=== PATIENT | male | born 1940 | race Caucasian/White ===

== ENCOUNTER 2022-07-10 17:47 | Outpatient (REF) | payer SELFPAY ==
[2022-07-10 15:25] LABS: HCT 43.4 % (40.0-50.0); HGB 14.9 g/dL (13.5-17.5); MCH 33.1 pg (27.0-33.0); MCHC 34.3 % (32.0-36.0); MCV 96 fL (80-95); MPV 8.9 fL (8.0-11.0); Platelet Count 322 10^3/uL (130-400); RDW 12.3 % (11.8-14.1); RDW-SD 44.2 fL; WBC 7.55 10^3/uL (4.4-10.8)
[2022-07-10 15:40] LABS: Anion Gap 9.1 mmol/L (3-11); BUN 18 mg/dL (7-18); CO2 24.9 mmol/L (21.0-32.0); CREATININE 1.1 mg/dL (0.70-1.30); Calcium 8.8 mg/dL (8.5-10.1); Chloride 106 mmol/L (98-107); Estimated GFR 67.02 (mL/min/1.73m2); Glucose 261 mg/dL (74-106); Potassium 4.7 mmol/L (3.5-5.1); Sodium 140 mmol/L (136-145)
[2022-07-10 15:45] LABS: Hemoglobin A1C 7.3 % (<5.7)
--- OUTSIDE RECORDS SUMMARY | 2022-07-10 18:08 | XMS_ITS | CCD ---
Author Name Unknown Address [address] [place] [address] [phone] Organization Unknown Address [address] [place] [address] [phone] Care Team Providers Care Timing Machine Operator Name Role Phone ZEKE MARTÍNEZ Attending Physician [phone] Vital Signs Unknown or Not Available. Allergies Allergy Code Allergy Type Reaction Status GARLIC OIL 0477481 Drug allergy Hives Active Procedures Unknown or Not Available. History of Immunizations Unknown or Not Available. Problems Problem Code Start Date Resolved Date Status Failure to thrive 88133701 Active Functional quadriplegia 114869552744282 Active Type 2 diabetes 68858043 Active Weakness 31988509 Active Unsteady gait 82658390 Active JANAE - acute kidney injury 13480279 07/02/2022 Resolved Results URINALYSIS WITH REFLEX CULT IF POSITIVE* - Collect Date/Time: 05/20/2022 12:05 Test Name Code Test Result Test Units Test Ref Rang e COLLECTION MODE: 21503-6 NOT STATED N/A Color 5778-6 YELLOW N/A yellow Appearance 5767-9 CLEAR N/A clear Glucose urine 09989-3 >=1000 N/A negative mg /dl Bilirubin 5770-3 NEGATIVE N/A negative Ketones 2514-8 TRACE N/A negative mg/dl Spec gravity 5811-5 1.015 N/A 1.003 - 1.03 0 pH urine 2756-5 7.5 N/A 5.0 - 7.0 Protein 52778-3 NEGATIVE N/A negative mg/dl Urobilinogen 01696-7 0.2 N/A <or= 1 EU/dl Nitrite. 5802-4 NEGATIVE N/A negative Blood 5794-3 NEGATIVE N/A negative Leukocytes. NEGATIVE N/A negative MICROSCOPIC NOT INDICAT N/A Active Medications Medication Code Dose Units Frequency Route Modificatio n Start Date/Time Aspir 81 81MG Oral Tablet, Enteric Coated [id number] 81 MILLIGRAMS DAILY ORAL 09:29 Prescription Detail TAKE 81 MILLIGRAMS ORAL DAILY Dulcolax 100MG Oral Capsule, Liquid Filled [id number] 100 MILLIGRAMS TWICE A DAY ORAL 0 04/28/2021 09:29 Prescription Detail TAKE 100 MILLIGRAMS ORAL TWICE A DAY Omeprazole 20MG Oral Capsule, Delayed Release 155486 20 MILLIGRAMS DAILY ORAL 09:29 Prescription Detail TAKE 20 MILLIGRAMS ORAL DAILY Medications Administered During Visit Unknown or Not Available. Encounters Encounter Diagnosis Diagnosis Code Start Date Dysuria R300 05/20/2022 Social History Smoking Status Code Start Date End Date Former smoker [id number] 04/05/1955 Patient Decision Aids Unknown or Not Available. Discharge Instructions You were admitted to [facility] on 05/20/2022 23:13 with a principal diagnosis of Dysuria You had the following tests done:URINALYSIS WITH REFLEX CULT IF POSITIVE* You were discharged from [facility] on 05/20/2022 23:13 Should you have any questions prior to discharge, please contact a member of your healthcare team. If you have left the hospital and have any questions, please contact your primary care physician. Chief Complaint and Reason For Visit Unknown or Not Available. Function Status Unknown or Not Available. Plan of Care Unknown or Not Available. Referral/Transition of Care Unknown or Not Available.
--- OUTSIDE RECORDS SUMMARY | 2022-07-10 18:08 | XMS_ITS | CCD ---
Author Name Unknown Address [address] [place] [address] [phone] Organization Unknown Address [address] [place] [address] [phone] Care Team Providers Care Balloon Sander Name Role Phone HETAL LEROY Attending Physician [phone] MAGUE VEE Er Physician 6 [phone] ÁNGEL Arenas Registered Nurse [phone] RIANNA Copeland Registered Nurse [phone] Vital Signs Vital Sign Value Unit Date/Time Recent/Initial ? BMI (Body Mass Index) 24.8 kg/m^2 05/18/2022 04: 28 Initial VS Weight Measured 140 lbs 05/18/2022 04:28 Ini tial VS Height 63 in 05/18/2022 04:28 Initial VS BSA (Body Surface Area) 1.68 m^2 05/18/2022 0 4:28 Initial VS BP Systolic 156 mmHg 05/18/2022 04:28 Initial VS BP Diastolic 88 mmHg 05/18/2022 04:28 Initia l VS Respiratory Rate 18 bpm 05/18/2022 04:28 In itial VS Heart Rate 87 bpm 05/18/2022 04:28 Initial VS O2 % BldC Oximetry 95 % 05/18/2022 04:28 Initial VS Body Temperature 36.3 degrees 05/18/2022 04:28 In itial VS Body Temperature 36.9 degrees 05/18/2022 05:[address] Recent VS Respiratory Rate 18 bpm 05/18/2022 06:[address] Recent VS BP Systolic 150 mmHg 05/18/2022 07:00 Most Re cent VS BP Diastolic 76 mmHg 05/18/2022 07:00 Most R ecent VS Heart Rate 81 bpm 05/18/2022 07:00 Most Rec ent VS O2 % BldC Oximetry 91 % 05/18/2022 07:00 Most Recent VS Allergies Allergy Code Allergy Type Reaction Status GARLIC OIL 5575880 Drug allergy Hives Active Procedures Unknown or Not Available. History of Immunizations Unknown or Not Available. Problems Problem Code Start Date Resolved Date Status Failure to thrive 86521424 Active Functional quadriplegia 922480424656581 Active Type 2 diabetes 57525046 Active Weakness 22125274 Active Unsteady gait 14903879 Active JANAE - acute kidney injury 38306441 07/02/2022 Resolved Results C REACTIVE PROTEIN HIGH SENS ITIVITY* - Collect Date/Time: 05/18/2022 04:15 Test Name Code Test Result Test Units Test Ref Rang e CRP-HIGH SENS. 41995-7 147.97 mg/L L=0.00 H=3 .00 CRP-HIGH SENS 36517-7 14.80 mg/dL L=0.00 H=0. 30 COMPREHENSIVE METABOLIC PANE L (CMP) - Collect Date/Time: 05/18/2022 04:15 Test Name Code Test Result Test Units Test Ref Rang e GLUCOSE 2345-7 133 mg/dL L=70 H=116 BUN 3094-0 27 mg/dL L=6 H=25 CREATININE 2160-0 1.26 mg/dL L=0.67 H=1.17 SODIUM SERUM 2951-2 135 mmol/L L=136 H=145 POTASSIUM SERUM 2823-3 4.0 mmol/L L=3.4 H=5 .2 CHLORIDE SERUM 2075-0 101 mmol/L L=96 H=110 CARBON DIOXIDE (CO2) 2028-9 29 mmol/L L=22 H=34 ANION GAP 57450-4 4.6 mmol/L CALCIUM SERUM 09340-3 8.6 mg/dL L=8.2 H=10. 2 BILIRUBIN TOTAL 1975-2 0.7 mg/dL L=0.0 H=1 .3 ALK. PHOS. 6768-6 130 U/L L=46 H=116 SGOT (AST) 1920-8 31 U/L L=15 H=37 SGPT (ALT) 1742-6 35 U/L L=12 H=78 TOTAL PROTEIN 2885-2 7.7 gm/dL L=6.0 H=8.0 ALBUMIN 1751-7 3.0 gm/dL L=3.4 H=5.0 AGE 81 years eGFR (non-Afr.Amer.) 02103-2 55 mL/min eGFR (Afr-Mosotho) 17659-1 66 mL/min GLUCOSE FINGER/HEEL CAPILLAR Y - Collect Date/Time: 05/18/2022 04:29 Test Name Code Test Result Test Units Test Ref Rang e GLUCOSE CAP 134 mg/dL L=70 H=116 TROPONIN HIGH SENSITIVITY* - Collect Date/Time: 05/18/2022 04:15 Test Name Code Test Result Test Units Test Ref Rang e TROPONIN HS 8.7 pg/mL L=0.0 H=60.4 Specimen seq. ADM. N/A CBC W/ DIFFERENTIAL* - Colle ct Date/Time: 05/18/2022 04:15 Test Name Code Test Result Test Units Test Ref Rang e WBC 6690-2 8.07 th/cmm L=5.00 H=10.00 NEUT % 64.6 % L=40.0 H=80.0 LYMPH % 18.7 % L=10.0 H=50.0 MONO % 09056-6 13.8 % L=2.0 H=12.0 EOS % 1.9 % L=0.0 H=8.0 BASO % 0.6 % L=0.0 H=3.0 IG % 2514-8 0.4 % L=0.0 H=1.1 NRBC % 48161-3 0.0 % L=0.0 H=0.0 NEUT abs count 751-8 5.2 th/cmm L=1.6 H=8. 4 LYMPH abs count 731-0 1.5 th/cmm L=1.5 H=4 .0 MONO abs count 742-7 1.1 th/cmm L=0.2 H=1. 0 EOS abs count 711-2 0.2 th/cmm L=0.0 H=0.5 BASO abs count 704-7 0.1 th/cmm L=0.0 H=0. 2 IG abs count 13662-3 0.0 th/cmm L=0.0 H=0.1 NRBC abs count 06134-3 0.0 mil/cmm L=0.0 H=0. 0 RBC 789-8 4.25 mil/cmm L=4.30 H=6.20 HEMOGLOBIN 718-7 14.3 gm/dL L=13.0 H=17.0 HEMATOCRIT 4544-3 42 % L=45 H=52 MCV 787-2 98 fL L=82 H=92 MCH 785-6 33.6 pg L=27.0 H=31.0 MCHC 786-4 34.4 % L=32.0 H=36.0 RDW-SD 788-0 45.0 fL L=39.0 H=49.0 PLATELET COUNT 777-3 277 th/cmm L=150 H=45 0 SED RATE* - Collect Date/Shel[place] e: 05/18/2022 04:15 Test Name Code Test Result Test Units Test Ref Rang e SED. RATE 4537-7 72 mm/hr L=0 H=20 PERICO COVID FLU RSV GENEXPE RT - Collect Date/Time: 05/18/2022 04:25 Test Name Code Test Result Test Units Test Ref Rang e COVID 39003-6 NEGATIVE N/A Normal: Negati ve INFLUENZA A DNA 92408-2 NEGATIVE N/A Normal: N egative INFLUENZA B DNA 24582-3 NEGATIVE N/A Normal: N egative RSV DNA 19082-0 NEGATIVE N/A Normal: Negati ve URINALYSIS WITH MICRO AND RE FLEX CULTUR* - Collect Date/Time: 05/18/2022 06:53 Test Name Code Test Result Test Units Test Ref Rang e COLLECTION MODE: 72372-0 CLEAN CATCH N/A Color 5778-6 YELLOW N/A yellow Appearance 5767-9 CLEAR N/A clear Glucose urine 06569-1 NEGATIVE N/A negative mg /dl Bilirubin 5770-3 NEGATIVE N/A negative Ketones 2514-8 15 N/A negative mg/dl Spec gravity 5811-5 <=1.005 N/A 1.003 - 1.03 0 pH urine 2756-5 6.5 N/A 5.0 - 7.0 Protein 97279-5 NEGATIVE N/A negative mg/dl Urobilinogen 51066-1 0.2 N/A <or= 1 EU/dl Nitrite. 5802-4 NEGATIVE N/A negative Blood 5794-3 NEGATIVE N/A negative Leukocytes. NEGATIVE N/A negative WBCs. 17191-0 0-5 N/A 0-5 / hpf RBCs 05143-2 0-5 N/A 0-5 / hpf Epith cells 79696-5 0-5 N/A 0-5 / hpf Cell types squamous N/A Crystals none N/A none Bacteria none N/A none Mucus 8247-9 present N/A none Casts 64667-3 0-5 N/A none /lpf Cast types hyaline N/A Active Medications Unknown or Not Available. Medications Administered During Visit Medication Dose Units Frequency Route Date/Time of Last Dose SODIUM CHLORIDE 0.9% 500ML 500 ML X1 IV 05/18/2022 05:33 CETIRIZINE TABLET: 10MG 10 MG X1 PO 05/18/2022 05:45 SODIUM CHLORIDE 0.9% 500ML 500 ML X1 IV 05/18/2022 06:03 ERYTHROMYCIN OPHTHALMIC OINTMENT 1GM 1 ANDREW X1 OPTH EACH EYE 05/18/2022 07: 47 Encounters Encounter Diagnosis Diagnosis Code Start Date Dehydration E860 05/18/2022 Social History Smoking Status Code Start Date End Date Former smoker [id number] 04/05/1955 Patient Decision Aids Unknown or Not Available. Discharge Instructions You were admitted to [facility] on 05/18/2022 04:11 with a principal diagnosis of Dehydration You had the following tests done:URINALYSIS WITH MICRO AND REFLEX CULTUR*GLUCOSE FINGER/HEEL CAPILLARYCOPLEY COVID FLU RSV GENEXPERTC REACTIVE PROTEIN HIGH SENSITIVITY*CBC W/ DIFFERENTIAL*COMPREHENSIVE METABOLIC PANEL (CMP)SED RATE*TROPONIN HIGH SENSITIVITY* You were discharged from [facility] on 05/18/2022 10:20 Should you have any questions prior to discharge, please contact a member of your healthcare team. If you have left the hospital and have any questions, please contact your primary care physician. Chief Complaint and Reason For Visit Chief Complaint Date of Onset WEAKNESS Function Status Unknown or Not Available. Plan of Care Unknown or Not Available. Referral/Transition of Care Unknown or Not Available.
--- OUTSIDE RECORDS SUMMARY | 2022-07-10 18:08 | XMS_ITS | CCD ---
Author Name Unknown Address [address] [place] [address] [phone] Organization Unknown Address [address] [place] [address] [phone] Care Team Providers Care Gourmet Coffee Attendant Name Role Phone TYLER HUMMEL Attending Physician [phone] SOTERO ISAAC Er Physician 0 [phone] ANNEMARIE CHIN (Secondary) Physician 8 [phone] Inez, OSMIN Registered Nurse [phone] BDebra, NANI Leija Registered Nurse [phone] G., RIANNA Meyer Registered Nurse [phone] Vital Signs Vital Sign Value Unit Date/Time Recent/Initial ? BMI (Body Mass Index) 24.63 kg/m^2 07/02/2022 06: 44 Initial VS Weight Measured 148 lbs 07/02/2022 06:44 Ini tial VS Height 65 in 07/02/2022 06:44 Initial VS BSA (Body Surface Area) 1.75 m^2 07/02/2022 0 6:44 Initial VS BP Systolic 162 mmHg 07/02/2022 06:44 Initial VS BP Diastolic 62 mmHg 07/02/2022 06:44 Initia l VS Respiratory Rate 18 bpm 07/02/2022 06:44 In itial VS Heart Rate 73 bpm 07/02/2022 06:44 Initial VS O2 % BldC Oximetry 96 % 07/02/2022 06:44 Initial VS Body Temperature 36.3 degrees 07/02/2022 06:44 In itial VS BP Systolic 159 mmHg 07/07/2022 07:36 Most Re cent VS BP Diastolic 79 mmHg 07/07/2022 07:36 Most R ecent VS Respiratory Rate 20 bpm 07/07/2022 07:[address] Recent VS Heart Rate 62 bpm 07/07/2022 07:36 Most Rec ent VS O2 % BldC Oximetry 96 % 07/07/2022 07:36 Most Recent VS Body Temperature 36.2 degrees 07/07/2022 07:[address] Recent VS Allergies Allergy Code Allergy Type Reaction Status GARLIC OIL 5449800 Drug allergy Hives Active Procedures Unknown or Not Available. History of Immunizations Unknown or Not Available. Problems Problem Code Start Date Resolved Date Status Failure to thrive 92527769 Active Functional quadriplegia 829858562974422 Active Type 2 diabetes 02603826 Active Weakness 33428737 Active Unsteady gait 85487797 Active Results COMPREHENSIVE METABOLIC PANE L (CMP) - Collect Date/Time: 07/02/2022 06:47 Test Name Code Test Result Test Units Test Ref Rang e GLUCOSE 2345-7 179 mg/dL L=70 H=116 BUN 3094-0 20 mg/dL L=6 H=25 CREATININE 2160-0 1.03 mg/dL L=0.67 H=1.17 SODIUM SERUM 2951-2 138 mmol/L L=136 H=145 POTASSIUM SERUM 2823-3 4.2 mmol/L L=3.4 H=5 .2 CHLORIDE SERUM 2075-0 101 mmol/L L=96 H=110 CARBON DIOXIDE (CO2) 2028-9 29 mmol/L L=22 H=34 ANION GAP 01051-2 8.1 mmol/L CALCIUM SERUM 99932-1 9.1 mg/dL L=8.2 H=10. 2 BILIRUBIN TOTAL 1975-2 0.8 mg/dL L=0.0 H=1 .3 ALK. PHOS. 6768-6 215 U/L L=46 H=116 SGOT (AST) 1920-8 28 U/L L=15 H=37 SGPT (ALT) 1742-6 83 U/L L=12 H=78 TOTAL PROTEIN 2885-2 8.1 gm/dL L=6.0 H=8.0 ALBUMIN 1751-7 3.1 gm/dL L=3.4 H=5.0 AGE 81 years eGFR (non-Afr.Amer.) 76475-7 69 mL/min eGFR (Afr-Greenlandic) 59385-0 84 mL/min GLUCOSE FINGER/HEEL CAPILLAR Y - Collect Date/Time: 07/06/2022 07:36 Test Name Code Test Result Test Units Test Ref Rang e GLUCOSE CAP 156 mg/dL L=70 H=116 GLUCOSE FINGER/HEEL CAPILLAR Y - Collect Date/Time: 07/05/2022 07:35 Test Name Code Test Result Test Units Test Ref Rang e GLUCOSE CAP 157 mg/dL L=70 H=116 GLUCOSE FINGER/HEEL CAPILLAR Y - Collect Date/Time: 07/04/2022 08:04 Test Name Code Test Result Test Units Test Ref Rang e GLUCOSE CAP 161 mg/dL L=70 H=116 GLUCOSE FINGER/HEEL CAPILLAR Y - Collect Date/Time: 07/03/2022 20:19 Test Name Code Test Result Test Units Test Ref Rang e GLUCOSE CAP 230 mg/dL L=70 H=116 GLUCOSE FINGER/HEEL CAPILLAR Y - Collect Date/Time: 07/03/2022 06:30 Test Name Code Test Result Test Units Test Ref Rang e GLUCOSE CAP 137 mg/dL L=70 H=116 GLUCOSE FINGER/HEEL CAPILLAR Y - Collect Date/Time: 07/02/2022 07:40 Test Name Code Test Result Test Units Test Ref Rang e GLUCOSE CAP 172 mg/dL L=70 H=116 TROPONIN HIGH SENSITIVITY* - Collect Date/Time: 07/02/2022 06:47 Test Name Code Test Result Test Units Test Ref Rang e TROPONIN HS 8.2 pg/mL L=0.0 H=60.4 Specimen seq. RANDOM N/A CBC W/ DIFFERENTIAL* - Colle ct Date/Time: 07/02/2022 06:47 Test Name Code Test Result Test Units Test Ref Rang e WBC 6690-2 7.73 th/cmm L=5.00 H=10.00 NEUT % 70.6 % L=40.0 H=80.0 LYMPH % 16.7 % L=10.0 H=50.0 MONO % 68817-3 10.6 % L=2.0 H=12.0 EOS % 1.6 % L=0.0 H=8.0 BASO % 0.4 % L=0.0 H=3.0 IG % 2514-8 0.1 % L=0.0 H=1.1 NRBC % 35497-5 0.0 % L=0.0 H=0.0 NEUT abs count 751-8 5.5 th/cmm L=1.6 H=8. 4 LYMPH abs count 731-0 1.3 th/cmm L=1.5 H=4 .0 MONO abs count 742-7 0.8 th/cmm L=0.2 H=1. 0 EOS abs count 711-2 0.1 th/cmm L=0.0 H=0.5 BASO abs count 704-7 0.0 th/cmm L=0.0 H=0. 2 IG abs count 00086-2 0.0 th/cmm L=0.0 H=0.1 NRBC abs count 92076-4 0.0 mil/cmm L=0.0 H=0. 0 RBC 789-8 4.50 mil/cmm L=4.30 H=6.20 HEMOGLOBIN 718-7 15.1 gm/dL L=13.0 H=17.0 HEMATOCRIT 4544-3 44 % L=45 H=52 MCV 787-2 98 fL L=82 H=92 MCH 785-6 33.6 pg L=27.0 H=31.0 MCHC 786-4 34.4 % L=32.0 H=36.0 RDW-SD 788-0 45.5 fL L=39.0 H=49.0 PLATELET COUNT 777-3 247 th/cmm L=150 H=45 0 PERICO COVID FLU RSV GENEXPE RT - Collect Date/Time: 07/02/2022 06:47 Test Name Code Test Result Test Units Test Ref Rang e COVID 53866-8 NEGATIVE N/A Normal: Negati ve INFLUENZA A DNA 10558-2 NEGATIVE N/A Normal: N egative INFLUENZA B DNA 34248-3 NEGATIVE N/A Normal: N egative RSV DNA 06011-2 NEGATIVE N/A Normal: Negati ve URINALYSIS WITH REFLEX CULT IF POSITIVE* - Collect Date/Time: 07/02/2022 08:35 Test Name Code Test Result Test Units Test Ref Rang e COLLECTION MODE: 58996-5 CLEAN CATCH N/A Color 5778-6 YELLOW N/A yellow Appearance 5767-9 CLEAR N/A clear Glucose urine 36898-4 250 N/A negative mg /dl Bilirubin 5770-3 NEGATIVE N/A negative Ketones 2514-8 NEGATIVE N/A negative mg/dl Spec gravity 5811-5 1.010 N/A 1.003 - 1.03 0 pH urine 2756-5 7.5 N/A 5.0 - 7.0 Protein 35281-2 NEGATIVE N/A negative mg/dl Urobilinogen 92281-9 0.2 N/A <or= 1 EU/dl Nitrite. 5802-4 NEGATIVE N/A negative Blood 5794-3 NEGATIVE N/A negative Leukocytes. NEGATIVE N/A negative MICROSCOPIC NOT INDICAT N/A Active Medications Medication Code Dose Units Frequency Route Modificatio n Start Date/Time LOSARTAN TABLET: 50MG 193580 50 MG DAILY PO 07/02/2022 14:34 ASPIRIN TABLET E.C.: 81MG 003501 81 MG DAILY WITH FOOD PO 07/02/2022 13:35 DOCUSATE SODIUM CAPSULE: 100MG 4374626 100 MG BID PO 07/02 13:34 ACETAMINOPHEN TABLET: 325MG 262552 975 MG PRN Q6H PO 2022 13:33 BISACODYL SUPPOSITORY: 10MG 798268 10 MG PRN DAILY DE 13:33 CALCIUM CARBONATE TAB CHEWABLE UD: 500MG 478759 8859 MG PRN Q2H CHEW 07/02/2022 13:33 MILK OF MAGNESIA SUSP UD: 2400MG/30ML 991056 30 ML PRN DAILY PO 07/03/19 23 13:33 ONDANSETRON INJ SDV: 4MG/2ML 7706773 4 MG PRN Q4H IVP 023 13:33 ONDANSETRON TABLET ORAL DISINTEGRAT: 4MG 869614 4 MG PRN Q4H PO 07/02/2022 13:33 PANTOPRAZOLE TABLET: 40MG 440741 40 MG Q7AM PO 023 13:33 POLYETHYLENE GLYCOL PACKET 3350:17GM 315462 17 GRAMS PRN DAILY PO 13:33 SENNA CONC TABLET: 8.6MG 217547 8.6 MG PRN DAILY PO 07/02/2022 13:33 Medications Administered During Visit Medication Dose Units Frequency Route Date/Time of Last Dose ACETAMINOPHEN TABLET: 325MG 975 MG PRN Q6H PO 07/02/2022 21:41 PANTOPRAZOLE TABLET: 40MG 40 MG Q7AM PO 07/07/2022 06:05 DOCUSATE SODIUM CAPSULE: 100MG 100 MG BID PO 07/07/2022 09:0 1 ASPIRIN TABLET E.C.: 81MG 81 MG DAILY WITH SANDY D PO 07/07/2022 09:01 LOSARTAN TABLET: 50MG 50 MG DAILY PO 07/07/2022 09:01 Encounters Encounter Diagnosis Diagnosis Code Start Date Adult failure to thrive R627 07/04/19 23 Social History Smoking Status Code Start Date End Date Former smoker [id number] 04/05/1955 Patient Decision Aids Unknown or Not Available. Discharge Instructions You were admitted to [facility] on 07/03/2022 11:49 with a principal diagnosis of Adult failure to thrive You had the following tests done:GLUCOSE FINGER/HEEL CAPILLARYGLUCOSE FINGER/HEEL CAPILLARYGLUCOSE FINGER/HEEL CAPILLARYGLUCOSE FINGER/HEEL CAPILLARYGLUCOSE FINGER/HEEL CAPILLARYURINALYSIS WITH REFLEX CULT IF POSITIVE*GLUCOSE FINGER/HEEL CAPILLARYCBC W/ DIFFERENTIAL*COMPREHENSIVE METABOLIC PANEL (CMP)[facility] COVID FLU RSV GENEXPERTTROPONIN HIGH SENSITIVITY* You were discharged from [facility] on 07/07/2022 10:00 Should you have any questions prior to discharge, please contact a member of your healthcare team. If you have left the hospital and have any questions, please contact your primary care physician. Chief Complaint and Reason For Visit Chief Complaint Date of Onset FAILURE TO THRIVE WEAKNESS UNSTEADY GAIT 07/02/2022 Function Status Unknown or Not Available. Plan of Care Unknown or Not Available. Referral/Transition of Care Unknown or Not Available.
--- OUTSIDE RECORDS SUMMARY | 2022-07-10 18:09 | XMS_ITS | Continuity of Care Document ---
Author Name Unknown Organization Unknown Medications Start Date End Date Medication Signa 20220622 losartan 50 mg oral tablet T bertha 1 tab(s) orally once a day 20220526 Erythromycin, Op hthalmic 0.5% ophthalmic ointment Apply One application ophthalmic 2 times a day for 5 day(s); Conjunctivitis 20210729 Dulcolax Stool S oftener sodium 100 mg oral capsule Take 1 cap(s) orally 2 times a day as needed for Constipation; Bowels 20210521 Rolaids 550 mg-1 10 mg oral tablet, chewable Chew 1-2 tab(s) oral 1 to 4 times a day as needed; Acid reflux 20200605 aspirin 81 mg or al delayed release tablet Take 1 tab(s) orally once a day 20200605 Fiber Choice 1.5 g oral tablet, chewable Chew 2 tab(s) chewed 3 times a day 20200605 multivitamin Mul tiple Vitamins oral capsule Take 1 cap(s) orally once a day 20200605 omeprazole 20 mg oral delayed release capsule Take 1 cap(s) orally once a day Problems Type Code Description Effective Start Effective End Onset/Exacerbation Date Primary 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
--- OUTSIDE RECORDS SUMMARY | 2022-07-10 18:09 | XMS_ITS | CCD ---
Author Name Unknown Address [address] [place] [address] [id number] Organization Unknown Address [address] [place] [address] [phone] Care Team Providers Care Brazing Machine Setter Name Role Phone ALIRIO ROSS Attending Physician [phone] Vital Signs Unknown or Not Available. Allergies Allergy Code Allergy Type Reaction Status GARLIC OIL 3428234 Drug allergy Hives Active Procedures Unknown or Not Available. History of Immunizations Unknown or Not Available. Problems Problem Code Start Date Resolved Date Status Failure to thrive 97589201 Active Functional quadriplegia 025790337801708 Active Type 2 diabetes 65440786 Active Weakness 93596899 Active Unsteady gait 31550542 Active Results Unknown or Not Available. Active Medications Medication Code Dose Units Frequency Route Modificatio n Start Date/Time Aspir 81 81MG Oral Tablet, Enteric Coated [id number] 81 MILLIGRAMS DAILY ORAL 09:29 Prescription Detail TAKE 81 MILLIGRAMS ORAL DAILY Dulcolax 100MG Oral Capsule, Liquid Filled [id number] 100 MILLIGRAMS TWICE A DAY ORAL 0 04/28/2021 09:29 Prescription Detail TAKE 100 MILLIGRAMS ORAL TWICE A DAY Omeprazole 20MG Oral Capsule, Delayed Release 651562 20 MILLIGRAMS DAILY ORAL 09:29 Prescription Detail TAKE 20 MILLIGRAMS ORAL DAILY Medications Administered During Visit Unknown or Not Available. Encounters Unknown or Not Available. Social History Smoking Status Code Start Date End Date Former smoker [id number] 04/05/1955 Patient Decision Aids Unknown or Not Available. Discharge Instructions You were admitted to [facility] on 07/03/2022 01:39 You were discharged from [facility] on 07/07/2022 01:39 Should you have any questions prior to [...]
--- OUTSIDE RECORDS SUMMARY | 2022-07-10 18:09 | XMS_ITS | CCD ---
Author Name Unknown Address [address] [place] [address] [id number] Organization Unknown Address [address] [place] [address] [id number] Care Team Providers Care Hot Mill Observer Name Role Phone TYLER HUMMEL Attending Physician [phone] MENDEZ LAGUNA Er Physician [phone] DUY PEREZ (Secondary) Physicia n [phone] W.JUSTICE Registered Nurse [phone] W.DADA Registered Nurse [phone] PROYA Richardson Registered Nurse [phone] Vital Signs Vital Sign Value Unit Date/Time Recent/Initial ? BMI (Body Mass Index) 26.39 kg/m^2 04/23/2021 19: 43 Initial VS Weight Measured 149 lbs 04/23/2021 19:43 Ini tial VS Height 63 in 04/23/2021 19:43 Initial VS BSA (Body Surface Area) 1.73 m^2 04/23/2021 1 9:43 Initial VS BP Systolic 139 mmHg 04/23/2021 19:43 Initial VS BP Diastolic 73 mmHg 04/23/2021 19:43 Initia l VS Respiratory Rate 24 bpm 04/23/2021 19:43 In itial VS Heart Rate 98 bpm 04/23/2021 19:43 Initial VS O2 % BldC Oximetry 96 % 04/23/2021 19:43 Initial VS Body Temperature 37.3 degrees 04/23/2021 19:43 In itial VS BMI (Body Mass Index) 25.87 kg/m^2 04/25/2021 12: 44 Most Recent VS Weight Measured 146.03 lbs 04/25/2021 12:44 Mos t Recent VS Height 63 in 04/25/2021 12:44 Most Rec ent VS BSA (Body Surface Area) 1.72 m^2 04/25/2021 1 2:44 Most Recent VS BP Systolic 158 mmHg 04/28/2021 07:32 Most Re cent VS BP Diastolic 96 mmHg 04/28/2021 07:32 Most R ecent VS Respiratory Rate 18 bpm 04/28/2021 07:[address] Recent VS Heart Rate 64 bpm 04/28/2021 07:32 Most Rec ent VS O2 % BldC Oximetry 95 % 04/28/2021 07:32 Most Recent VS Body Temperature 36.4 degrees 04/28/2021 07:[address] Recent VS Allergies Allergy Code Allergy Type Reaction Status GARLIC OIL 6656068 Drug allergy Hives Active Procedures Unknown or Not Available. History of Immunizations Unknown or Not Available. Problems Problem Code Start Date Resolved Date Status Failure to thrive 38175571 Active Functional quadriplegia 892770135388622 Active Type 2 diabetes 43998723 Active Weakness 19283486 Active Unsteady gait 84396402 Active JANAE - acute kidney injury 35594924 07/02/2022 Resolved Results BASIC METABOLIC PANEL (BMP) - Collect Date/Time: 04/24/2021 06:50 Test Name Code Test Result Test Units Test Ref Rang e GLUCOSE 2345-7 97 mg/dL L=70 H=116 BUN 3094-0 11 mg/dL L=6 H=25 CREATININE 2160-0 1.08 mg/dL L=0.67 H=1.17 SODIUM SERUM 2951-2 144 mmol/L L=136 H=145 POTASSIUM SERUM 2823-3 4.2 mmol/L L=3.4 H=5 .2 CHLORIDE SERUM 2075-0 108 mmol/L L=96 H=110 CARBON DIOXIDE (CO2) 2028-9 31 mmol/L L=22 H=34 ANION GAP 63964-6 5.3 mmol/L CALCIUM SERUM 66014-5 8.5 mg/dL L=8.2 H=10. 2 AGE 80 years eGFR (non-Afr.Amer.) 91327-8 66 mL/min eGFR (Afr-[place]er) 35232-0 79 mL/min COMPREHENSIVE METABOLIC PANE L (CMP) - Collect Date/Time: 04/23/2021 19:20 Test Name Code Test Result Test Units Test Ref Rang e GLUCOSE 2345-7 306 mg/dL L=70 H=116 BUN 3094-0 18 mg/dL L=6 H=25 CREATININE 2160-0 1.33 mg/dL L=0.67 H=1.17 SODIUM SERUM 2951-2 136 mmol/L L=136 H=145 POTASSIUM SERUM 2823-3 4.2 mmol/L L=3.4 H=5 .2 CHLORIDE SERUM 2075-0 100 mmol/L L=96 H=110 CARBON DIOXIDE (CO2) 2028-9 24 mmol/L L=22 H=34 ANION GAP 43229-0 12.4 mmol/L CALCIUM SERUM 94309-5 9.0 mg/dL L=8.2 H=10. 2 BILIRUBIN TOTAL 1975-2 0.7 mg/dL L=0.0 H=1 .3 ALK. PHOS. 6768-6 130 U/L L=46 H=116 SGOT (AST) 1920-8 22 U/L L=15 H=37 SGPT (ALT) 1742-6 33 U/L L=12 H=78 TOTAL PROTEIN 2885-2 7.6 gm/dL L=6.0 H=8.0 ALBUMIN 1751-7 3.5 gm/dL L=3.4 H=5.0 AGE 80 years eGFR (non-Afr.Amer.) 08353-9 52 mL/min eGFR (Afr-[place]er) 57709-5 62 mL/min GLUCOSE FINGER/HEEL CAPILLAR Y - Collect Date/Time: 04/27/2021 08:24 Test Name Code Test Result Test Units Test Ref Rang e GLUCOSE CAP 108 mg/dL L=70 H=116 GLUCOSE FINGER/HEEL CAPILLAR Y - Collect Date/Time: 04/26/2021 08:15 Test Name Code Test Result Test Units Test Ref Rang e GLUCOSE CAP 92 mg/dL L=70 H=116 GLUCOSE FINGER/HEEL CAPILLAR Y - Collect Date/Time: 04/25/2021 16:56 Test Name Code Test Result Test Units Test Ref Rang e GLUCOSE CAP 97 mg/dL L=70 H=116 GLUCOSE FINGER/HEEL CAPILLAR Y - Collect Date/Time: 04/25/2021 11:31 Test Name Code Test Result Test Units Test Ref Rang e GLUCOSE CAP 151 mg/dL L=70 H=116 GLUCOSE FINGER/HEEL CAPILLAR Y - Collect Date/Time: 04/24/2021 22:09 Test Name Code Test Result Test Units Test Ref Rang e GLUCOSE CAP 88 mg/dL L=70 H=116 GLUCOSE FINGER/HEEL CAPILLAR Y - Collect Date/Time: 04/24/2021 08:34 Test Name Code Test Result Test Units Test Ref Rang e GLUCOSE CAP 87 mg/dL L=70 H=116 KETONES QUAL - Collect Date/ Time: 04/23/2021 19:20 Test Name Code Test Result Test Units Test Ref Rang e ACETONE 5567-3 NEGATIVE N/A THYROID TESTING CASCADE* - C ollect Date/Time: 04/23/2021 19:20 Test Name Code Test Result Test Units Test Ref Rang e TSH. 3014-8 0.515 uIU/mL L=0.360 H=3.74 0 TROPONIN HIGH SENSITIVITY* - Collect Date/Time: 04/23/2021 19:20 Test Name Code Test Result Test Units Test Ref Rang e TROPONIN HS 11.6 pg/mL L=0.0 H=60.4 Specimen seq. ADM. N/A TROPONIN-I* - Collect Date/T rochelle: 04/23/2021 19:20 Test Name Code Test Result Test Units Test Ref Rang e TROPONIN-I 67792-4 <0.017 ng/mL L=0.000 H=0.06 0 Specimen seq. Random N/A CBC W/ DIFFERENTIAL* - Colle ct Date/Time: 04/24/2021 06:50 Test Name Code Test Result Test Units Test Ref Rang e WBC 6690-2 7.17 th/cmm L=5.00 H=10.00 NEUT % 63.5 % L=40.0 H=80.0 LYMPH % 20.6 % L=10.0 H=50.0 MONO % 56252-8 14.1 % L=2.0 H=12.0 EOS % 1.0 % L=0.0 H=8.0 BASO % 0.7 % L=0.0 H=3.0 IG % 2514-8 0.1 % L=0.0 H=1.1 NRBC % 61244-2 0.0 % L=0.0 H=0.0 NEUT abs count 751-8 4.6 th/cmm L=1.6 H=8. 4 LYMPH abs count 731-0 1.5 th/cmm L=1.5 H=4 .0 MONO abs count 742-7 1.0 th/cmm L=0.2 H=1. 0 EOS abs count 711-2 0.1 th/cmm L=0.0 H=0.5 BASO abs count 704-7 0.1 th/cmm L=0.0 H=0. 2 IG abs count 53528-4 0.0 th/cmm L=0.0 H=0.1 NRBC abs count 00954-6 0.0 mil/cmm L=0.0 H=0. 0 RBC 789-8 4.20 mil/cmm L=4.30 H=6.20 HEMOGLOBIN 718-7 14.2 gm/dL L=13.0 H=17.0 HEMATOCRIT 4544-3 42 % L=45 H=52 MCV 787-2 101 fL L=82 H=92 MCH 785-6 33.8 pg L=27.0 H=31.0 MCHC 786-4 33.6 % L=32.0 H=36.0 RDW-SD 788-0 49.3 fL L=39.0 H=49.0 PLATELET COUNT 777-3 196 th/cmm L=150 H=45 0 CBC W/ DIFFERENTIAL* - Colle ct Date/Time: 04/23/2021 20:38 Test Name Code Test Result Test Units Test Ref Rang e WBC 6690-2 11.28 th/cmm L=5.00 H=10.00 NEUT % 77.7 % L=40.0 H=80.0 LYMPH % 10.8 % L=10.0 H=50.0 MONO % 56628-0 10.7 % L=2.0 H=12.0 EOS % 0.1 % L=0.0 H=8.0 BASO % 0.4 % L=0.0 H=3.0 IG % 2514-8 0.3 % L=0.0 H=1.1 NRBC % 71334-2 0.0 % L=0.0 H=0.0 NEUT abs count 751-8 8.8 th/cmm L=1.6 H=8. 4 LYMPH abs count 731-0 1.2 th/cmm L=1.5 H=4 .0 MONO abs count 742-7 1.2 th/cmm L=0.2 H=1. 0 EOS abs count 711-2 0.0 th/cmm L=0.0 H=0.5 BASO abs count 704-7 0.1 th/cmm L=0.0 H=0. 2 IG abs count 51749-1 0.0 th/cmm L=0.0 H=0.1 NRBC abs count 55404-4 0.0 mil/cmm L=0.0 H=0. 0 RBC 789-8 4.33 mil/cmm L=4.30 H=6.20 HEMOGLOBIN 718-7 14.8 gm/dL L=13.0 H=17.0 HEMATOCRIT 4544-3 42 % L=45 H=52 MCV 787-2 98 fL L=82 H=92 MCH 785-6 34.2 pg L=27.0 H=31.0 MCHC 786-4 35.0 % L=32.0 H=36.0 RDW-SD 788-0 46.4 fL L=39.0 H=49.0 PLATELET COUNT 777-3 230 th/cmm L=150 H=45 0 PERICO COVID FLU RSV GENEXPE RT - Collect Date/Time: 04/23/2021 23:06 Test Name Code Test Result Test Units Test Ref Rang e COVID 94099-9 NEGATIVE N/A Normal: Negati ve INFLUENZA A DNA 88728-7 NEGATIVE N/A Normal: N egative INFLUENZA B DNA 32581-7 NEGATIVE N/A Normal: N egative RSV DNA 11589-7 NEGATIVE N/A Normal: Negati ve URINALYSIS WITH MICRO AND RE FLEX CULTUR* - Collect Date/Time: 04/23/2021 22:03 Test Name Code Test Result Test Units Test Ref Rang e COLLECTION MODE: CLEAN CATCH N/A Color 5778-6 YELLOW N/A yellow Appearance 5767-9 CLEAR N/A clear Glucose urine 92428-9 500 N/A negative mg /dl Bilirubin 5770-3 NEGATIVE N/A negative Ketones 2514-8 NEGATIVE N/A negative mg/dl Spec gravity 5811-5 <=1.005 N/A 1.003 - 1.03 0 pH urine 2756-5 6.0 N/A 5.0 - 7.0 Protein 82256-4 NEGATIVE N/A negative mg/dl Urobilinogen 71606-5 0.2 N/A <or= 1 EU/dl Nitrite. 5802-4 NEGATIVE N/A negative Blood 5794-3 NEGATIVE N/A negative Leukocytes. NEGATIVE N/A negative WBCs. 60580-4 0-5 N/A 0-5 / hpf RBCs 01292-7 0-5 N/A 0-5 / hpf Epith cells 58396-6 0-5 N/A 0-5 / hpf Cell types squamous N/A Crystals none N/A none Bacteria minimal N/A none Mucus none N/A none Casts none N/A none /lpf ORDER VENOUS BLOOD GAS* - Co llect Date/Time: 04/23/2021 22:00 Test Name Code Test Result Test Units Test Ref Rang e pH (venous) 2746-6 7.41 L=7.31 H=7.41 2 (venous) 45 HCO3 1960-4 28 mmol/L L=22 H=26 TCO2 (venous) 3533-7 30 mmol/L L=22 H=28 BASE EXCESS (venous) 3097-3 4 mmol/L L=-2 H=3 Specimen type: VENOUS N/A Active Medications Medications Administered During Visit Medication Dose Units Frequency Route Date/Time of Last Dose SODIUM CHLORIDE 0.9% 500ML 500 ML X1 04/23/2021 20:22 INSULIN MDV LISPRO: 1000UNITS/10ML PRN SUBQ 04/25/2021 12 :57 ASPIRIN TABLET E.C.: 81MG 81 MG DAILY PO 04/28/2021 08:30 DOCUSATE SODIUM CAPSULE: 100MG 100 MG BID PO 04/28/2021 08:3 0 GlipiZIDE XL TABLET: 2.5MG 2.5 MG DAILY WITH FO OD PO 04/27/2021 08:27 PANTOPRAZOLE TABLET: 40MG 40 MG Q7AM PO 04/28/2021 06:22 LOSARTAN TABLET: 25MG 25 MG DAILY PO 04/28/2021 08:30 SODIUM CHLORIDE 0.9% 1000ML 1000 ML X1 04/24/2021 00:28 GlipiZIDE XL TABLET: 2.5MG 2.5 MG DAILY WITH FO OD PO 04/28/2021 08:31 Encounters Encounter Diagnosis Diagnosis Code Start Date Acute kidney failure, unspecified N179 04/25/2021 Social History Smoking Status Code Start Date End Date Former smoker [id number] 04/05/1955 Patient Decision Aids Unknown or Not Available. Discharge Instructions You were admitted to [facility] on 04/25/2021 14:41 with a principal diagnosis of Acute kidney failure, unspecified You had the following tests done:GLUCOSE FINGER/HEEL CAPILLARYGLUCOSE FINGER/HEEL CAPILLARYGLUCOSE FINGER/HEEL CAPILLARYGLUCOSE FINGER/HEEL CAPILLARYGLUCOSE FINGER/HEEL CAPILLARYGLUCOSE FINGER/HEEL CAPILLARYBASIC METABOLIC PANEL (BMP)CBC W/ DIFFERENTIAL*[facility] COVID FLU RSV GENEXPERTURINALYSIS WITH MICRO AND REFLEX CULTUR*ORDER VENOUS BLOOD GAS*CBC W/ DIFFERENTIAL*COMPREHENSIVE METABOLIC PANEL (CMP)KETONES QUALTHYROID TESTING CASCADE*TROPONIN HIGH SENSITIVITY*TROPONIN-I* You were discharged from [facility] on 04/28/2021 11:30 Should you have any questions prior to discharge, please contact a member of your healthcare team. If you have left the hospital and have any questions, please contact your primary care physician. Chief Complaint and Reason For Visit Chief Complaint Date of Onset FUNCTIONAL QUADRIPLEGIA 04/24/2021 Function Status Unknown or Not Available. Plan of Care Unknown or Not Available. Referral/Transition of Care Unknown or Not Available.
--- OUTSIDE RECORDS SUMMARY | 2022-07-10 18:09 | XMS_ITS | CCD ---
Author Name Unknown Address [address] [place] [address] [phone] Organization Unknown Address [address] [place] [address] [phone] Care Team Providers Care Motor Installer Name Role Phone ALIRIO ROSS Attending Physician [phone] Vital Signs Unknown or Not Available. Allergies Allergy Code Allergy Type Reaction Status GARLIC OIL 3778224 Drug allergy Hives Active Procedures Unknown or Not Available. History of Immunizations Unknown or Not Available. Problems Problem Code Start Date Resolved Date Status Failure to thrive 13119888 Active Functional quadriplegia 089843989640143 Active Type 2 diabetes 97847422 Active Weakness 97389925 Active Unsteady gait 37152347 Active JANAE - acute kidney injury 45311905 07/02/2022 Resolved Results Unknown or Not Available. Active Medications Medication Code Dose Units Frequency Route Modificatio n Start Date/Time Aspir 81 81MG Oral Tablet, Enteric Coated [id number] 81 MILLIGRAMS DAILY ORAL 09:29 Prescription Detail TAKE 81 MILLIGRAMS ORAL DAILY Dulcolax 100MG Oral Capsule, Liquid Filled 10693168992 100 MILLIGRAMS TWICE A DAY ORAL 0 04/28/2021 09:29 Prescription Detail TAKE 100 MILLIGRAMS ORAL TWICE A DAY Omeprazole 20MG Oral Capsule, Delayed Release 547255 20 MILLIGRAMS DAILY ORAL 09:29 Prescription Detail TAKE 20 MILLIGRAMS ORAL DAILY Medications Administered During Visit Unknown or Not Available. Encounters Unknown or Not Available. Social History Smoking Status Code Start Date End Date Former smoker [id number] 04/05/1955 Patient Decision Aids Unknown or Not Available. Discharge Instructions You were admitted to [facility] on 07/02/2022 13:33 You were discharged from [facility] on 07/03/2022 11:49 Should you have any questions prior to [...]
--- OUTSIDE RECORDS SUMMARY | 2022-07-10 18:09 | XMS_ITS | CCD ---
Author Name Unknown Address [address] [place] [address] [phone] Organization Unknown Address [address] [place] [address] [phone] Care Team Providers Care Button Maker Name Role Phone TYLER HUMMEL Attending Physician [phone] DUY PEREZ (Secondary) Physicia n [phone] Vital Signs Unknown or Not Available. Allergies Allergy Code Allergy Type Reaction Status GARLIC OIL 5200484 Drug allergy Hives Active Procedures Unknown or Not Available. History of Immunizations Unknown or Not Available. Problems Problem Code Start Date Resolved Date Status Failure to thrive 02096018 Active Functional quadriplegia 965126574724115 Active Type 2 diabetes 06353619 Active Weakness 18431718 Active Unsteady gait 23359418 Active JANAE - acute kidney injury 09333861 07/02/2022 Resolved Diabetes 83276118 04/23/2021 Resolved Results Unknown or Not Available. Active Medications Medication Code Dose Units Frequency Route Modificatio n Start Date/Time Aspir 81 81MG Oral Tablet, Enteric Coated [id number] 81 MILLIGRAMS DAILY ORAL 09:29 Prescription Detail TAKE 81 MILLIGRAMS ORAL DAILY Dulcolax 100MG Oral Capsule, Liquid Filled 74545542820 100 MILLIGRAMS TWICE A DAY ORAL 0 04/28/2021 09:29 Prescription Detail TAKE 100 MILLIGRAMS ORAL TWICE A DAY Omeprazole 20MG Oral Capsule, Delayed Release 373166 20 MILLIGRAMS DAILY ORAL 09:29 Prescription Detail TAKE 20 MILLIGRAMS ORAL DAILY Medications Administered During Visit Unknown or Not Available. Encounters Encounter Diagnosis Diagnosis Code Start Date Weakness R531 04/23/2021 Social History Unknown or Not Available. Patient Decision Aids Unknown or Not Available. Discharge Instructions You were admitted to [facility] on 04/23/2021 23:21 with a principal diagnosis of Weakness You were discharged from [facility] on 04/25/2021 14:41 Should you have any questions prior to [...]
--- OUTSIDE RECORDS SUMMARY | 2022-07-10 18:09 | XMS_ITS | CCD ---
Author Name Unknown Address [address] [place] [address] [id number] Organization Unknown Address [address] [place] [address] [phone] Care Team Providers Care Pet Trainer Name Role Phone TYLER HUMMEL Attending Physician [phone] TYLER HUMMEL Rounding (Secondary) Physician [phone] Vital Signs Unknown or Not Available. Allergies Allergy Code Allergy Type Reaction Status GARLIC OIL 2565602 Drug allergy Hives Active Procedures Unknown or Not Available. History of Immunizations Unknown or Not Available. Problems Problem Code Start Date Resolved Date Status Failure to thrive 70160387 Active Functional quadriplegia 869729026746868 Active Type 2 diabetes 32522580 Active Weakness 66163004 Active Unsteady gait 43003158 Active JANAE - acute kidney injury 58801474 07/02/2022 Resolved Diabetes 88891249 04/23/2021 Resolved Results Unknown or Not Available. Active Medications Medication Code Dose Units Frequency Route Modificatio n Start Date/Time Aspir 81 81MG Oral Tablet, Enteric Coated [id number] 81 MILLIGRAMS DAILY ORAL 09:29 Prescription Detail TAKE 81 MILLIGRAMS ORAL DAILY Dulcolax 100MG Oral Capsule, Liquid Filled 44442432493 100 MILLIGRAMS TWICE A DAY ORAL 0 04/28/2021 09:29 Prescription Detail TAKE 100 MILLIGRAMS ORAL TWICE A DAY Omeprazole 20MG Oral Capsule, Delayed Release 447585 20 MILLIGRAMS DAILY ORAL 09:29 Prescription Detail TAKE 20 MILLIGRAMS ORAL DAILY Medications Administered During Visit Unknown or Not Available. Encounters Encounter Diagnosis Diagnosis Code Start Date Acute kidney failure, unspecified N179 04/23/2021 Social History Smoking Status Code Start Date End Date Former smoker [id number] 04/05/1955 Patient Decision Aids Unknown or Not Available. Discharge Instructions You were admitted to [facility] on 04/23/2021 08:48 with a principal diagnosis of Acute kidney failure, unspecified You were discharged from [facility] on 04/28/2021 08:49 Should you have any questions prior to [...]
== END 2022-07-10 17:48 | disposition home or self-care (01) ==
LOC: LBN 17:47
PROVIDERS: Visit Provider Family Medicine
DX: I10 Essential (primary) hypertension (principal); E11.29 Type 2 diabetes mellitus with other diabetic kidney complication
CPT/HCPCS: 80048; 85027; 83036

== ENCOUNTER 2022-10-12 15:21 | Outpatient (REF) | payer MEDICARE, BC, SELFPAY ==
[2022-10-12 17:56] LABS: Anion Gap 11.4 mmol/L (3-11); BUN 24 mg/dL (7-18); CO2 24.6 mmol/L (21.0-32.0); CREATININE 1.3 mg/dL (0.70-1.30); Calcium 8.8 mg/dL (8.5-10.1); Chloride 100 mmol/L (98-107); Estimated GFR 54.85 (mL/min/1.73m2); Glucose 331 mg/dL (74-106); NT-proBNP 85 pg/mL (<300); Potassium 4.7 mmol/L (3.5-5.1); Sodium 136 mmol/L (136-145)
[2022-10-12 18:44] LABS: Hemoglobin A1C 7.6 % (<5.7)
== END 2022-10-12 15:22 | disposition home or self-care (01) ==
LOC: LBN 15:21
PROVIDERS: Visit Provider Family Medicine
DX: N17.9 Acute kidney failure, unspecified (principal); I10 Essential (primary) hypertension; E11.29 Type 2 diabetes mellitus with other diabetic kidney complication
CPT/HCPCS: 80048; 83036; 83880

== ENCOUNTER 2022-11-10 20:40 | Outpatient (REF) | payer MEDICARE, BC, SELFPAY ==
[2022-11-10 15:32] LABS: Anion Gap 8.3 mmol/L (3-11); BUN 23 mg/dL (7-18); CO2 28.7 mmol/L (21.0-32.0); CREATININE 1.1 mg/dL (0.70-1.30); Calcium 9.3 mg/dL (8.5-10.1); Chloride 100 mmol/L (98-107); Estimated GFR 67.02 (mL/min/1.73m2); Glucose 171 mg/dL (74-106); Potassium 4.6 mmol/L (3.5-5.1); Sodium 137 mmol/L (136-145)
== END 2022-11-10 20:41 | disposition home or self-care (01) ==
LOC: LBN 20:40
PROVIDERS: Visit Provider Family Medicine
DX: I69.354 Hemiplegia and hemiparesis following cerebral infarction affecting left non-dominant side; I63.9 Cerebral infarction, unspecified
CPT/HCPCS: 80048

== ENCOUNTER 2023-01-14 16:21 | Outpatient (REF) | payer MEDICARE, BC, SELFPAY ==
[2023-01-14 19:13] LABS: Anion Gap 10.8 mmol/L (3-11); BUN 12 mg/dL (7-18); CO2 24.2 mmol/L (21.0-32.0); CREATININE 1.3 mg/dL (0.70-1.30); Calcium 9.3 mg/dL (8.5-10.1); Chloride 97 mmol/L (98-107); Estimated GFR 54.51 (mL/min/1.73m2); Glucose 257 mg/dL (74-106); Potassium 4.3 mmol/L (3.5-5.1); Sodium 132 mmol/L (136-145)
[2023-01-14 20:40] LABS: Hemoglobin A1C 8.5 % (<5.7)
== END 2023-01-14 16:22 | disposition home or self-care (01) ==
LOC: NCHCN 16:21
PROVIDERS: Visit Provider Family Medicine
DX: E11.29 Type 2 diabetes mellitus with other diabetic kidney complication (principal); N17.9 Acute kidney failure, unspecified
CPT/HCPCS: 80048; 83036

== ENCOUNTER 2023-03-19 15:55 | Outpatient (REF) | payer MEDICARE, BC, SELFPAY ==
[2023-03-19 14:38] LABS: Abs Immature Grans 0.01 10^3/uL (0.0-0.06); Absolute Basophil Count 0.05 10^3/uL (0.0-0.2); Absolute Eosinophil Count 0.06 10^3/uL (0.0-0.7); Absolute Lymphocyte Count 0.91 10^3/uL (1.2-3.4); Absolute Monocyte Count 0.68 10^3/uL (0.1-0.8); Absolute Neutrophil Count 2.83 10^3/uL (1.2-6.7); Basophils % 1.1; Eosinophils % 1.3; HCT 39.4 % (40.0-50.0); HGB 13.8 g/dL (13.5-17.5); Immature Grans % 0.2; MCH 33.4 pg (27.0-33.0); MCV 95 fL (80-95); Neutrophils % 62.4; Platelet Count 273 10^3/uL (130-400); RBC 4.13 10^6/uL (4.36-5.78); RDW 13.1 % (11.8-14.1); RDW-SD 46.1 fL; WBC 4.54 10^3/uL (4.4-10.8)
[2023-03-19 15:52] LABS: ALT 34 U/L (16-63); AST 29 U/L (15-37); Albumin 3.3 g/dL (3.4-5.0); Alkaline Phosphatase 153 U/L (46-116); Anion Gap 13.1 mmol/L (3-11); BUN 17 mg/dL (7-18); Bilirubin, Total 0.4 mg/dL (0.2-1.0); CO2 23.9 mmol/L (21.0-32.0); CREATININE 1.4 mg/dL (0.70-1.30); Calcium 8.9 mg/dL (8.5-10.1); Chloride 94 mmol/L (98-107); Estimated GFR 49.87 (mL/min/1.73m2); Glucose 222 mg/dL (74-106); Potassium 4.1 mmol/L (3.5-5.1); Sodium 131 mmol/L (136-145); TSH 0.67 uIU/mL (0.36-3.74); Total Protein 7.4 g/dL (6.4-8.2)
--- OUTSIDE RECORDS SUMMARY | 2023-03-19 15:57 | XMS_ITS | CCD ---
Author Name Unknown Address [address] [place] [address] [phone] Organization Unknown Address [address] [place] [address] [id number] Care Team Providers Care Semaphore Operator Name Role Phone ALIRIO ROSS Attending Physician [phone] Vital Signs Unknown or Not Available. Allergies Allergy Code Allergy Type Reaction Status GARLIC OIL 3168044 Drug allergy Hives Active Procedures Unknown or Not Available. History of Immunizations Unknown or Not Available. Problems Problem Code Start Date Resolved Date Status Failure to thrive 61288774 Active Functional quadriplegia 760425924075979 Active Type 2 diabetes 07292014 Active Weakness 71866539 Active Unsteady gait 54994927 Active Results Unknown or Not Available. Active Medications Medication Code Dose Units Frequency Route Modificatio n Start Date/Time Aspir 81 81MG Oral Tablet, Enteric Coated [id number] 81 MILLIGRAMS DAILY ORAL 09:29 Prescription Detail TAKE 81 MILLIGRAMS ORAL DAILY Dulcolax 100MG Oral Capsule, Liquid Filled 30682092279 100 MILLIGRAMS TWICE A DAY ORAL 0 04/28/2021 09:29 Prescription Detail TAKE 100 MILLIGRAMS ORAL TWICE A DAY Omeprazole 20MG Oral Capsule, Delayed Release 834779 20 MILLIGRAMS DAILY ORAL 09:29 Prescription Detail TAKE 20 MILLIGRAMS ORAL DAILY Medications Administered During Visit Unknown or Not Available. Encounters Encounter Diagnosis Diagnosis Code Start Date Adult failure to thrive R627 07/04/19 23 Social History Smoking Status Code Start Date End Date Former smoker [id number] 04/05/1955 Patient Decision Aids Unknown or Not Available. Discharge Instructions You were admitted to [facility] on 07/03/2022 01:39 with a principal diagnosis of Adult failure to thrive You were discharged from [facility] on 07/07/2022 01:39 Should you have [...]
--- OUTSIDE RECORDS SUMMARY | 2023-03-19 15:58 | XMS_ITS | CCD ---
Author Name Unknown Address [address] [place] [address] [phone] Organization Unknown Address [address] [place] [address] [phone] Care Team Providers Care Childcare Teacher Name Role Phone ZEKE MARTÍNEZ Attending Physician [phone] Vital Signs Unknown or Not Available. Allergies Allergy Code Allergy Type Reaction Status GARLIC OIL 8013562 Drug allergy Hives Active Procedures Unknown or Not Available. History of Immunizations Unknown or Not Available. Problems Problem Code Start Date Resolved Date Status Failure to thrive 99895202 Active Functional quadriplegia 622835429655693 Active Type 2 diabetes 42875762 Active Weakness 15989265 Active Unsteady gait 33046845 Active JANAE - acute kidney injury 94322823 07/02/2022 Resolved Results URINALYSIS WITH REFLEX CULT IF POSITIVE* - Collect Date/Time: 05/20/2022 12:05 Test Name Code Test Result Test Units Test Ref Rang e COLLECTION MODE: 57659-5 NOT STATED N/A Color 5778-6 YELLOW N/A yellow Appearance 5767-9 CLEAR N/A clear Glucose urine 03510-7 >=1000 N/A negative mg /dl Bilirubin 5770-3 NEGATIVE N/A negative Ketones 2514-8 TRACE N/A negative mg/dl Spec gravity 5811-5 1.015 N/A 1.003 - 1.03 0 pH urine 2756-5 7.5 N/A 5.0 - 7.0 Protein 45115-8 NEGATIVE N/A negative mg/dl Urobilinogen 29208-4 0.2 N/A <or= 1 EU/dl Nitrite. 5802-4 NEGATIVE N/A negative Blood 5794-3 NEGATIVE N/A negative Leukocytes. NEGATIVE N/A negative MICROSCOPIC NOT INDICAT N/A Active Medications Medication Code Dose Units Frequency Route Modificatio n Start Date/Time Aspir 81 81MG Oral Tablet, Enteric Coated [id number] 81 MILLIGRAMS DAILY ORAL 09:29 Prescription Detail TAKE 81 MILLIGRAMS ORAL DAILY Dulcolax 100MG Oral Capsule, Liquid Filled 24247717085 100 MILLIGRAMS TWICE A DAY ORAL 0 04/28/2021 09:29 Prescription Detail TAKE 100 MILLIGRAMS ORAL TWICE A DAY Omeprazole 20MG Oral Capsule, Delayed Release 356172 20 MILLIGRAMS DAILY ORAL 09:29 Prescription Detail TAKE 20 MILLIGRAMS ORAL DAILY Medications Administered During Visit Unknown or Not Available. Encounters Encounter Diagnosis Diagnosis Code Start Date Dysuria R300 05/20/2022 Social History Smoking Status Code Start Date End Date Former smoker [id number] 04/05/1955 Patient Decision Aids Unknown or Not Available. Discharge Instructions You were admitted to [facility] on 05/20/2022 23:13 with a principal diagnosis of Dysuria You had the following tests done:URINALYSIS WITH REFLEX CULT IF POSITIVE* You were discharged from [facility] on 05/20/2022 23:13 Should [...]
--- OUTSIDE RECORDS SUMMARY | 2023-03-19 15:58 | XMS_ITS | CCD ---
Author Name Unknown Address [address] [place] [address] [phone] Organization Unknown Address [address] [place] [address] [phone] Care Team Providers Care Geoscience Professor Name Role Phone TYLER HUMMEL Attending Physician [phone] TYLER HUMMEL Rounding (Secondary) Physician [phone] Vital Signs Unknown or Not Available. Allergies Allergy Code Allergy Type Reaction Status GARLIC OIL 7825696 Drug allergy Hives Active Procedures Unknown or Not Available. History of Immunizations Unknown or Not Available. Problems Problem Code Start Date Resolved Date Status Failure to thrive 35341976 Active Functional quadriplegia 586963529554612 Active Type 2 diabetes 24480798 Active Weakness 51707087 Active Unsteady gait 16930900 Active JANAE - acute kidney injury 24426925 07/02/2022 Resolved Diabetes 56423186 04/23/2021 Resolved Results Unknown or Not Available. Active Medications Medication Code Dose Units Frequency Route Modificatio n Start Date/Time Aspir 81 81MG Oral Tablet, Enteric Coated [id number] 81 MILLIGRAMS DAILY ORAL 09:29 Prescription Detail TAKE 81 MILLIGRAMS ORAL DAILY Dulcolax 100MG Oral Capsule, Liquid Filled 10872470711 100 MILLIGRAMS TWICE A DAY ORAL 0 04/28/2021 09:29 Prescription Detail TAKE 100 MILLIGRAMS ORAL TWICE A DAY Omeprazole 20MG Oral Capsule, Delayed Release 796898 20 MILLIGRAMS DAILY ORAL 09:29 Prescription Detail TAKE 20 MILLIGRAMS ORAL DAILY Medications Administered During Visit Unknown or Not Available. Encounters Encounter Diagnosis Diagnosis Code Start Date Acute kidney failure, unspecified N179 04/23/2021 Social History Smoking Status Code Start Date End Date Former smoker [id number] 04/05/1955 Patient Decision Aids Unknown or Not Available. Discharge Instructions You were admitted to [facility] on 04/23/2021 08:48 with a principal diagnosis of Acute kidney failure, unspecified You were discharged from [facility] on 04/28/2021 08:49 Should you have any [...]
--- OUTSIDE RECORDS SUMMARY | 2023-03-19 15:58 | XMS_ITS | CCD ---
Author Name Unknown Address [address] [place] [address] [phone] Organization Unknown Address [address] [place] [address] [phone] Care Team Providers Care Financial Planning Analyst Name Role Phone ALIRIO ROSS Attending Physician [phone] Vital Signs Unknown or Not Available. Allergies Allergy Code Allergy Type Reaction Status GARLIC OIL 9025343 Drug allergy Hives Active Procedures Unknown or Not Available. History of Immunizations Unknown or Not Available. Problems Problem Code Start Date Resolved Date Status Failure to thrive 42192484 Active Functional quadriplegia 203271324879164 Active Type 2 diabetes 87446221 Active Weakness 24913240 Active Unsteady gait 35600089 Active JANAE - acute kidney injury 59671518 07/02/2022 Resolved Results Unknown or Not Available. Active Medications Medication Code Dose Units Frequency Route Modificatio n Start Date/Time Aspir 81 81MG Oral Tablet, Enteric Coated [id number] 81 MILLIGRAMS DAILY ORAL 09:29 Prescription Detail TAKE 81 MILLIGRAMS ORAL DAILY Dulcolax 100MG Oral Capsule, Liquid Filled [id number] 100 MILLIGRAMS TWICE A DAY ORAL 0 04/28/2021 09:29 Prescription Detail TAKE 100 MILLIGRAMS ORAL TWICE A DAY Omeprazole 20MG Oral Capsule, Delayed Release 663747 20 MILLIGRAMS DAILY ORAL 09:29 Prescription Detail TAKE 20 MILLIGRAMS ORAL DAILY Medications Administered During Visit Unknown or Not Available. Encounters Encounter Diagnosis Diagnosis Code Start Date Weakness R531 07/02/2022 Social History Smoking Status Code Start Date End Date Former smoker [id number] 04/05/1955 Patient Decision Aids Unknown or Not Available. Discharge Instructions You were admitted to [facility] on 07/02/2022 13:33 with a principal diagnosis of Weakness You were discharged from [facility] on 07/03/2022 11:49 Should you have [...]
--- OUTSIDE RECORDS SUMMARY | 2023-03-19 15:59 | XMS_ITS | CCD ---
Author Name Unknown Address [address] [place] [address] [phone] Organization Unknown Address [address] [place] [address] [phone] Care Team Providers Care Hvac Service Manager Name Role Phone TYLER HUMMEL Attending Physician [phone] MENDEZ LAGUNA Er Physician 1 [phone] DUY PEREZ (Secondary) Physicia n [phone] W.JUSTICE Registered Nurse [phone] W.DADA Registered Nurse [phone] PROYA Richardson Registered Nurse [phone] Vital Signs Vital Sign Value Unit Date/Time [...] Code Allergy Type Reaction Status GARLIC OIL 9538163 Drug allergy Hives Active Procedures Unknown or Not Available. History of Immunizations Unknown or Not Available. Problems Problem Code Start Date Resolved Date Status Failure to thrive 15721740 Active Functional quadriplegia 583323590213815 Active Type 2 diabetes 15808923 Active Weakness 96381783 Active Unsteady gait 74351020 Active JANAE - acute kidney injury 25001603 07/02/2022 Resolved Results BASIC METABOLIC PANEL (BMP) [...] 2028-9 31 mmol/L L=22 H=34 ANION GAP 81427-5 5.3 mmol/L CALCIUM SERUM 29045-7 8.5 mg/dL L=8.2 H=10. 2 AGE 80 years eGFR (non-Afr.Amer.) 80994-9 66 mL/min eGFR (Afr-Nigerien) 97770-4 79 mL/min COMPREHENSIVE METABOLIC PANE L (CMP) [...] 2028-9 24 mmol/L L=22 H=34 ANION GAP 45994-7 12.4 mmol/L CALCIUM SERUM 67698-0 9.0 mg/dL L=8.2 H=10. 2 BILIRUBIN TOTAL 1975-2 0.7 mg/dL L=0.0 H=1 .3 ALK. PHOS. 6768-6 130 U/L L=46 H=116 SGOT (AST) 1920-8 22 U/L L=15 H=37 SGPT (ALT) 1742-6 33 U/L L=12 H=78 TOTAL PROTEIN 2885-2 7.6 gm/dL L=6.0 H=8.0 ALBUMIN 1751-7 3.5 gm/dL L=3.4 H=5.0 AGE 80 years eGFR (non-Afr.Amer.) 63327-1 52 mL/min eGFR (Afr-Nigerien) 43820-1 62 mL/min GLUCOSE FINGER/HEEL CAPILLAR Y - [...] Test Units Test Ref Rang e TROPONIN-I 79196-2 <0.017 ng/mL L=0.000 H=0.06 0 Specimen seq. Random N/A CBC W/ DIFFERENTIAL* - Colle ct Date/Time: 04/24/2021 06:50 Test Name Code Test Result Test Units Test Ref Rang e WBC 6690-2 7.17 th/cmm L=5.00 H=10.00 NEUT % 63.5 % L=40.0 H=80.0 LYMPH % 20.6 % L=10.0 H=50.0 MONO % 47423-1 14.1 % L=2.0 H=12.0 EOS % 1.0 % L=0.0 H=8.0 BASO % 0.7 % L=0.0 H=3.0 IG % 2514-8 0.1 % L=0.0 H=1.1 NRBC % 42837-5 0.0 % L=0.0 H=0.0 NEUT abs count 751-8 4.6 th/cmm L=1.6 H=8. 4 LYMPH abs count 731-0 1.5 th/cmm L=1.5 H=4 .0 MONO abs count 742-7 1.0 th/cmm L=0.2 H=1. 0 EOS abs count 711-2 0.1 th/cmm L=0.0 H=0.5 BASO abs count 704-7 0.1 th/cmm L=0.0 H=0. 2 IG abs count 56596-7 0.0 th/cmm L=0.0 H=0.1 NRBC abs count 97172-0 0.0 mil/cmm L=0.0 H=0. 0 RBC 789-8 [...] % 10.8 % L=10.0 H=50.0 MONO % 21853-2 10.7 % L=2.0 H=12.0 EOS % 0.1 % L=0.0 H=8.0 BASO % 0.4 % L=0.0 H=3.0 IG % 2514-8 0.3 % L=0.0 H=1.1 NRBC % 38333-6 0.0 % L=0.0 H=0.0 NEUT abs count 751-8 8.8 th/cmm L=1.6 H=8. 4 LYMPH abs count 731-0 1.2 th/cmm L=1.5 H=4 .0 MONO abs count 742-7 1.2 th/cmm L=0.2 H=1. 0 EOS abs count 711-2 0.0 th/cmm L=0.0 H=0.5 BASO abs count 704-7 0.1 th/cmm L=0.0 H=0. 2 IG abs count 27310-1 0.0 th/cmm L=0.0 H=0.1 NRBC abs count 58401-6 0.0 mil/cmm L=0.0 H=0. 0 RBC 789-8 [...] Test Units Test Ref Rang e COVID 13239-7 NEGATIVE N/A Normal: Negati ve INFLUENZA A DNA 02305-5 NEGATIVE N/A Normal: N egative INFLUENZA B DNA 13738-2 NEGATIVE N/A Normal: N egative RSV DNA 32112-3 NEGATIVE N/A Normal: Negati ve URINALYSIS WITH MICRO AND RE FLEX CULTUR* - Collect Date/Time: 04/23/2021 22:03 Test Name Code Test Result Test Units Test Ref Rang e COLLECTION MODE: CLEAN CATCH N/A Color 5778-6 YELLOW N/A yellow Appearance 5767-9 CLEAR N/A clear Glucose urine 53322-4 500 N/A negative mg /dl Bilirubin 5770-3 NEGATIVE N/A negative Ketones 2514-8 NEGATIVE N/A negative mg/dl Spec gravity 5811-5 <=1.005 N/A 1.003 - 1.03 0 pH urine 2756-5 6.0 N/A 5.0 - 7.0 Protein 23655-1 NEGATIVE N/A negative mg/dl Urobilinogen 96627-8 0.2 N/A <or= 1 EU/dl Nitrite. 5802-4 NEGATIVE N/A negative Blood 5794-3 NEGATIVE N/A negative Leukocytes. NEGATIVE N/A negative WBCs. 09959-7 0-5 N/A 0-5 / hpf RBCs 48689-6 0-5 N/A 0-5 / hpf Epith cells 55346-1 0-5 N/A 0-5 / hpf Cell types [...] Code Start Date End Date Former smoker [id number] 04/05/1955 Patient Decision Aids Unknown or Not Available. Discharge Instructions You were admitted to [facility] on 04/25/2021 14:41 with a principal diagnosis of Acute kidney failure, unspecified You had the following tests done:GLUCOSE FINGER/HEEL CAPILLARYGLUCOSE FINGER/HEEL CAPILLARYGLUCOSE FINGER/HEEL CAPILLARYGLUCOSE FINGER/HEEL CAPILLARYGLUCOSE FINGER/HEEL CAPILLARYGLUCOSE FINGER/HEEL CAPILLARYBASIC METABOLIC PANEL (BMP)CBC W/ DIFFERENTIAL*[facility] COVID FLU RSV GENEXPERTURINALYSIS WITH MICRO AND REFLEX CULTUR*ORDER VENOUS BLOOD GAS*CBC W/ DIFFERENTIAL*COMPREHENSIVE METABOLIC PANEL (CMP)KETONES QUALTHYROID TESTING CASCADE*TROPONIN HIGH SENSITIVITY*TROPONIN-I* You were discharged from [facility] on 04/28/2021 11:30 Should you have [...]
--- OUTSIDE RECORDS SUMMARY | 2023-03-19 15:59 | XMS_ITS | CCD ---
Author Name Unknown Address [address] [place] [address] [id number] Organization Unknown Address [address] [place] [address] [phone] Care Team Providers Care Scientific Diver Name Role Phone TYLER HUMMEL Attending Physician [phone] DUY PEREZ (Secondary) Physicia n [phone] Vital Signs Unknown or Not Available. Allergies Allergy Code Allergy Type Reaction Status GARLIC OIL 4950373 Drug allergy Hives Active Procedures Unknown or Not Available. History of Immunizations Unknown or Not Available. Problems Problem Code Start Date Resolved Date Status Failure to thrive 46298994 Active Functional quadriplegia 810324410606849 Active Type 2 diabetes 52961272 Active Weakness 16885466 Active Unsteady gait 13944497 Active JANAE - acute kidney injury 50100464 07/02/2022 Resolved Diabetes 29899574 04/23/2021 Resolved Results Unknown or Not Available. Active Medications Medication Code Dose Units Frequency Route Modificatio n Start Date/Time Aspir 81 81MG Oral Tablet, Enteric Coated 83321875586 81 MILLIGRAMS DAILY ORAL 09:29 Prescription Detail TAKE 81 MILLIGRAMS ORAL DAILY Dulcolax 100MG Oral Capsule, Liquid Filled [id number] 100 MILLIGRAMS TWICE A DAY ORAL 0 04/28/2021 09:29 Prescription Detail TAKE 100 MILLIGRAMS ORAL TWICE A DAY Omeprazole 20MG Oral Capsule, Delayed Release 515374 20 MILLIGRAMS DAILY ORAL 09:29 Prescription Detail TAKE 20 MILLIGRAMS ORAL DAILY Medications Administered During Visit Unknown or Not Available. Encounters Encounter Diagnosis Diagnosis Code Start Date Weakness R531 04/23/2021 Social History Unknown or Not Available. Patient Decision Aids Unknown or Not Available. Discharge Instructions You were admitted to [facility] on 04/23/2021 23:21 with a principal diagnosis of Weakness You were discharged from [facility] on 04/25/2021 14:41 Should you have [...]
== END 2023-03-19 15:56 | disposition home or self-care (01) ==
LOC: LBN 15:55
PROVIDERS: PCP Family Medicine; Visit Provider Family Medicine
DX: E11.29 Type 2 diabetes mellitus with other diabetic kidney complication (principal); N17.9 Acute kidney failure, unspecified; R62.7 Adult failure to thrive; M62.81 Muscle weakness (generalized)
CPT/HCPCS: 80053; 84443; 85025

== ENCOUNTER 2023-03-22 14:39 | Outpatient (REF) | payer MEDICARE, BC, SELFPAY ==
--- OUTSIDE RECORDS SUMMARY | 2023-03-22 14:41 | XMS_ITS | CCD ---
Author Name Unknown Address [address] [place] [address] [phone] Organization Unknown Address [address] [place] [address] [phone] Care Team Providers Care Screedman Name Role Phone ZEKE MARTÍNEZ Attending Physician [phone] Vital Signs Unknown or Not Available. Allergies Allergy Code Allergy Type Reaction Status GARLIC OIL 9771346 Drug allergy Hives Active Procedures Unknown or Not Available. History of Immunizations Unknown or Not Available. Problems Problem Code Start Date Resolved Date Status Failure to thrive 46807114 Active Functional quadriplegia 437747635754361 Active Type 2 diabetes 18272754 Active Weakness 93428313 Active Unsteady gait 64576309 Active JANAE - acute kidney injury 66622225 07/02/2022 Resolved Results URINALYSIS WITH REFLEX CULT IF POSITIVE* - Collect Date/Time: 05/20/2022 12:05 Test Name Code Test Result Test Units Test Ref Rang e COLLECTION MODE: 02029-5 NOT STATED N/A Color 5778-6 YELLOW N/A yellow Appearance 5767-9 CLEAR N/A clear Glucose urine 05867-9 >=1000 N/A negative mg /dl Bilirubin 5770-3 NEGATIVE N/A negative Ketones 2514-8 TRACE N/A negative mg/dl Spec gravity 5811-5 1.015 N/A 1.003 - 1.03 0 pH urine 2756-5 7.5 N/A 5.0 - 7.0 Protein 57559-1 NEGATIVE N/A negative mg/dl Urobilinogen 18518-8 0.2 N/A <or= 1 EU/dl Nitrite. 5802-4 NEGATIVE N/A negative Blood 5794-3 NEGATIVE N/A negative Leukocytes. NEGATIVE N/A negative MICROSCOPIC NOT INDICAT N/A Active Medications Medication Code Dose Units Frequency Route Modificatio n Start Date/Time Aspir 81 81MG Oral Tablet, Enteric Coated [id number] 81 MILLIGRAMS DAILY ORAL 09:29 Prescription Detail TAKE 81 MILLIGRAMS ORAL DAILY Dulcolax 100MG Oral Capsule, Liquid Filled 23471343197 100 MILLIGRAMS TWICE A DAY ORAL 0 04/28/2021 09:29 Prescription Detail TAKE 100 MILLIGRAMS ORAL TWICE A DAY Omeprazole 20MG Oral Capsule, Delayed Release 190820 20 MILLIGRAMS DAILY ORAL 09:29 Prescription Detail TAKE 20 MILLIGRAMS ORAL DAILY Medications Administered During Visit Unknown or Not Available. Encounters Encounter Diagnosis Diagnosis Code Start Date Dysuria R300 05/20/2022 Social History Smoking Status Code Start Date End Date Former smoker [id number] 04/05/1955 Patient Decision Aids Unknown or Not Available. Discharge Instructions You were admitted to [facility] on 05/20/2022 23:13 with a principal diagnosis of Dysuria You had the following tests done:URINALYSIS WITH REFLEX CULT IF POSITIVE* You were discharged from [facility] on 05/20/2022 23:13 Should you have any [...]
--- OUTSIDE RECORDS SUMMARY | 2023-03-22 14:41 | XMS_ITS | CCD ---
Author Name Unknown Address [address] [place] [address] [phone] Organization Unknown Address [address] [place] [address] [phone] Care Team Providers Care Optical Goods Drilling Machine Operator Name Role Phone ALIRIO ROSS Attending Physician [phone] Vital Signs Unknown or Not Available. Allergies Allergy Code Allergy Type Reaction Status GARLIC OIL 1798762 Drug allergy Hives Active Procedures Unknown or Not Available. History of Immunizations Unknown or Not Available. Problems Problem Code Start Date Resolved Date Status Failure to thrive 12314164 Active Functional quadriplegia 588896304366896 Active Type 2 diabetes 60574372 Active Weakness 90962175 Active Unsteady gait 71153415 Active JANAE - acute kidney injury 79816786 07/02/2022 Resolved Results Unknown or Not Available. Active Medications Medication Code Dose Units Frequency Route Modificatio n Start Date/Time Aspir 81 81MG Oral Tablet, Enteric Coated 13163834129 81 MILLIGRAMS DAILY ORAL 09:29 Prescription Detail TAKE 81 MILLIGRAMS ORAL DAILY Dulcolax 100MG Oral Capsule, Liquid Filled 15169588422 100 MILLIGRAMS TWICE A DAY ORAL 0 04/28/2021 09:29 Prescription Detail TAKE 100 MILLIGRAMS ORAL TWICE A DAY Omeprazole 20MG Oral Capsule, Delayed Release 867124 20 MILLIGRAMS DAILY ORAL 09:29 Prescription Detail TAKE 20 MILLIGRAMS ORAL DAILY Medications Administered During Visit Unknown or Not Available. Encounters Encounter Diagnosis Diagnosis Code Start Date Weakness R531 07/02/2022 Social History Smoking Status Code Start Date End Date Former smoker [id number] 04/05/1955 Patient Decision Aids Unknown or Not Available. Discharge Instructions You were admitted to [facility] on 07/02/2022 13:33 with a principal diagnosis of Weakness You were discharged from [facility] on 07/03/2022 11:49 Should you [...]
--- OUTSIDE RECORDS SUMMARY | 2023-03-22 14:41 | XMS_ITS | CCD ---
Author Name Unknown Address [address] [place] [address] [phone] Organization Unknown Address [address] [place] [address] [phone] Care Team Providers Care Terminal Manager Name Role Phone ALIRIO ROSS Attending Physician [phone] Vital Signs Unknown or Not Available. Allergies Allergy Code Allergy Type Reaction Status GARLIC OIL 2457280 Drug allergy Hives Active Procedures Unknown or Not Available. History of Immunizations Unknown or Not Available. Problems Problem Code Start Date Resolved Date Status Failure to thrive 91686932 Active Functional quadriplegia 148889008234472 Active Type 2 diabetes 06047018 Active Weakness 73503911 Active Unsteady gait 15262442 Active Results Unknown or Not Available. Active Medications Medication Code Dose Units Frequency Route Modificatio n Start Date/Time Aspir 81 81MG Oral Tablet, Enteric Coated 22328016865 81 MILLIGRAMS DAILY ORAL 09:29 Prescription Detail TAKE 81 MILLIGRAMS ORAL DAILY Dulcolax 100MG Oral Capsule, Liquid Filled 10585143204 100 MILLIGRAMS TWICE A DAY ORAL 0 04/28/2021 09:29 Prescription Detail TAKE 100 MILLIGRAMS ORAL TWICE A DAY Omeprazole 20MG Oral Capsule, Delayed Release 469069 20 MILLIGRAMS DAILY ORAL 09:29 Prescription Detail TAKE 20 MILLIGRAMS ORAL DAILY Medications Administered During Visit Unknown or Not Available. Encounters Encounter Diagnosis Diagnosis Code Start Date Adult failure to thrive R627 07/04/19 23 Social History Smoking Status Code Start Date End Date Former smoker [id number] 04/05/1955 Patient Decision Aids Unknown or Not Available. Discharge Instructions You were admitted to [facility] on 07/03/2022 01:39 with a principal diagnosis of Adult failure to thrive You were discharged from [facility] on 07/07/2022 01:39 Should you have [...]
--- OUTSIDE RECORDS SUMMARY | 2023-03-22 14:41 | XMS_ITS | CCD ---
Author Name Unknown Address [address] [place] [address] [phone] Organization Unknown Address [address] [place] [address] [phone] Care Team Providers Care Asp Net Developer Name Role Phone TYLER HUMMEL Attending Physician [phone] SOTERO ISAAC Er Physician 7 [phone] ANNEMARIE CHIN (Secondary) Physician 8 [phone] Inez, OSMIN Registered Nurse [phone] BDebra, NANI Leija Registered Nurse [phone] G., RIANNA Meyer Registered Nurse [phone] Vital Signs Vital Sign Value Unit Date/Time [...] Code Allergy Type Reaction Status GARLIC OIL 5682573 Drug allergy Hives Active Procedures Unknown or Not Available. History of Immunizations Unknown or Not Available. Problems Problem Code Start Date Resolved Date Status Failure to thrive 31015974 Active Functional quadriplegia 892621702309318 Active Type 2 diabetes 94190587 Active Weakness 22179896 Active Unsteady gait 59605482 Active Results COMPREHENSIVE METABOLIC PANE L (CMP) [...] 2028-9 29 mmol/L L=22 H=34 ANION GAP 18855-7 8.1 mmol/L CALCIUM SERUM 72379-1 9.1 mg/dL L=8.2 H=10. 2 BILIRUBIN TOTAL 1975-2 0.8 mg/dL L=0.0 H=1 .3 ALK. PHOS. 6768-6 215 U/L L=46 H=116 SGOT (AST) 1920-8 28 U/L L=15 H=37 SGPT (ALT) 1742-6 83 U/L L=12 H=78 TOTAL PROTEIN 2885-2 8.1 gm/dL L=6.0 H=8.0 ALBUMIN 1751-7 3.1 gm/dL L=3.4 H=5.0 AGE 81 years eGFR (non-Afr.Amer.) 09320-9 69 mL/min eGFR (Afr-Citizen Of [place]) 83525-5 84 mL/min GLUCOSE FINGER/HEEL CAPILLAR Y - [...] % 16.7 % L=10.0 H=50.0 MONO % 93788-5 10.6 % L=2.0 H=12.0 EOS % 1.6 % L=0.0 H=8.0 BASO % 0.4 % L=0.0 H=3.0 IG % 2514-8 0.1 % L=0.0 H=1.1 NRBC % 86684-8 0.0 % L=0.0 H=0.0 NEUT abs count 751-8 5.5 th/cmm L=1.6 H=8. 4 LYMPH abs count 731-0 1.3 th/cmm L=1.5 H=4 .0 MONO abs count 742-7 0.8 th/cmm L=0.2 H=1. 0 EOS abs count 711-2 0.1 th/cmm L=0.0 H=0.5 BASO abs count 704-7 0.0 th/cmm L=0.0 H=0. 2 IG abs count 11238-9 0.0 th/cmm L=0.0 H=0.1 NRBC abs count 96974-4 0.0 mil/cmm L=0.0 H=0. 0 RBC 789-8 [...] Test Units Test Ref Rang e COVID 99835-9 NEGATIVE N/A Normal: Negati ve INFLUENZA A DNA 56112-1 NEGATIVE N/A Normal: N egative INFLUENZA B DNA 85882-3 NEGATIVE N/A Normal: N egative RSV DNA 99979-6 NEGATIVE N/A Normal: Negati ve URINALYSIS WITH REFLEX CULT IF POSITIVE* - Collect Date/Time: 07/02/2022 08:35 Test Name Code Test Result Test Units Test Ref Rang e COLLECTION MODE: 75620-8 CLEAN CATCH N/A Color 5778-6 YELLOW N/A yellow Appearance 5767-9 CLEAR N/A clear Glucose urine 80897-0 250 N/A negative mg /dl Bilirubin 5770-3 NEGATIVE N/A negative Ketones 2514-8 NEGATIVE N/A negative mg/dl Spec gravity 5811-5 1.010 N/A 1.003 - 1.03 0 pH urine 2756-5 7.5 N/A 5.0 - 7.0 Protein 00403-6 NEGATIVE N/A negative mg/dl Urobilinogen 91810-6 0.2 N/A <or= 1 EU/dl Nitrite. 5802-4 NEGATIVE N/A negative Blood 5794-3 NEGATIVE N/A negative Leukocytes. NEGATIVE N/A negative MICROSCOPIC NOT INDICAT N/A Active Medications Medications Administered During Visit [...] Code Start Date End Date Former smoker [id number] 04/05/1955 Patient Decision Aids Unknown or Not Available. Discharge Instructions You were admitted to [facility] on 07/03/2022 11:49 with a principal diagnosis of Adult failure to thrive You had the following tests done:GLUCOSE FINGER/HEEL CAPILLARYGLUCOSE FINGER/HEEL CAPILLARYGLUCOSE FINGER/HEEL CAPILLARYGLUCOSE FINGER/HEEL CAPILLARYGLUCOSE FINGER/HEEL CAPILLARYURINALYSIS WITH REFLEX CULT IF POSITIVE*GLUCOSE FINGER/HEEL CAPILLARYCBC W/ DIFFERENTIAL*COMPREHENSIVE METABOLIC PANEL (CMP)[facility] COVID FLU RSV GENEXPERTTROPONIN HIGH SENSITIVITY* You were discharged from [facility] on 07/07/2022 10:00 Should you have any [...] Unknown or Not Available. Referral/Transition of Care Referring Provider: NATTY LEHMAN [facility] Address: [address] [place] [address] [phone]
--- OUTSIDE RECORDS SUMMARY | 2023-03-22 14:41 | XMS_ITS | CCD ---
Author Name Unknown Address [address] [place] [address] [phone] Organization Unknown Address [address] [place] [address] [phone] Care Team Providers Care Production Supervisor Off Shift Name Role Phone HETAL LEROY Attending Physician [phone] MAGUE VEE Er Physician 5 [phone] ÁNGEL Arenas Registered Nurse [phone] RIANNA Copeland Registered Nurse [phone] Vital Signs Vital Sign Value Unit Date/Time [...] Code Allergy Type Reaction Status GARLIC OIL 8895542 Drug allergy Hives Active Procedures Unknown or Not Available. History of Immunizations Unknown or Not Available. Problems Problem Code Start Date Resolved Date Status Failure to thrive 22129793 Active Functional quadriplegia 315521721494227 Active Type 2 diabetes 49032089 Active Weakness 73228961 Active Unsteady gait 36917379 Active JANAE - acute kidney injury 21126081 07/02/2022 Resolved Results C REACTIVE PROTEIN HIGH SENS ITIVITY* - Collect Date/Time: 05/18/2022 04:15 Test Name Code Test Result Test Units Test Ref Rang e CRP-HIGH SENS. 56567-7 147.97 mg/L L=0.00 H=3 .00 CRP-HIGH SENS 54380-7 14.80 mg/dL L=0.00 H=0. 30 COMPREHENSIVE METABOLIC [...] 2028-9 29 mmol/L L=22 H=34 ANION GAP 21420-2 4.6 mmol/L CALCIUM SERUM 78364-6 8.6 mg/dL L=8.2 H=10. 2 BILIRUBIN TOTAL 1975-2 0.7 mg/dL L=0.0 H=1 .3 ALK. PHOS. 6768-6 130 U/L L=46 H=116 SGOT (AST) 1920-8 31 U/L L=15 H=37 SGPT (ALT) 1742-6 35 U/L L=12 H=78 TOTAL PROTEIN 2885-2 7.7 gm/dL L=6.0 H=8.0 ALBUMIN 1751-7 3.0 gm/dL L=3.4 H=5.0 AGE 81 years eGFR (non-Afr.Amer.) 95600-0 55 mL/min eGFR (Afr-Lithuanian) 53839-2 66 mL/min GLUCOSE FINGER/HEEL CAPILLAR Y - [...] % 18.7 % L=10.0 H=50.0 MONO % 71068-5 13.8 % L=2.0 H=12.0 EOS % 1.9 % L=0.0 H=8.0 BASO % 0.6 % L=0.0 H=3.0 IG % 2514-8 0.4 % L=0.0 H=1.1 NRBC % 90664-6 0.0 % L=0.0 H=0.0 NEUT abs count 751-8 5.2 th/cmm L=1.6 H=8. 4 LYMPH abs count 731-0 1.5 th/cmm L=1.5 H=4 .0 MONO abs count 742-7 1.1 th/cmm L=0.2 H=1. 0 EOS abs count 711-2 0.2 th/cmm L=0.0 H=0.5 BASO abs count 704-7 0.1 th/cmm L=0.0 H=0. 2 IG abs count 45047-2 0.0 th/cmm L=0.0 H=0.1 NRBC abs count 39479-7 0.0 mil/cmm L=0.0 H=0. 0 RBC 789-8 [...] Test Units Test Ref Rang e COVID 36164-8 NEGATIVE N/A Normal: Negati ve INFLUENZA A DNA 93809-6 NEGATIVE N/A Normal: N egative INFLUENZA B DNA 53229-7 NEGATIVE N/A Normal: N egative RSV DNA 80953-6 NEGATIVE N/A Normal: Negati ve URINALYSIS WITH MICRO AND RE FLEX CULTUR* - Collect Date/Time: 05/18/2022 06:53 Test Name Code Test Result Test Units Test Ref Rang e COLLECTION MODE: 82370-8 CLEAN CATCH N/A Color 5778-6 YELLOW N/A yellow Appearance 5767-9 CLEAR N/A clear Glucose urine 25935-6 NEGATIVE N/A negative mg /dl Bilirubin 5770-3 NEGATIVE N/A negative Ketones 2514-8 15 N/A negative mg/dl Spec gravity 5811-5 <=1.005 N/A 1.003 - 1.03 0 pH urine 2756-5 6.5 N/A 5.0 - 7.0 Protein 99899-3 NEGATIVE N/A negative mg/dl Urobilinogen 41252-6 0.2 N/A <or= 1 EU/dl Nitrite. 5802-4 NEGATIVE N/A negative Blood 5794-3 NEGATIVE N/A negative Leukocytes. NEGATIVE N/A negative WBCs. 56966-7 0-5 N/A 0-5 / hpf RBCs 34468-1 0-5 N/A 0-5 / hpf Epith cells 81239-9 0-5 N/A 0-5 / hpf Cell types squamous N/A Crystals none N/A none Bacteria none N/A none Mucus 8247-9 present N/A none Casts 42031-2 0-5 N/A none /lpf Cast types hyaline [...] Code Start Date End Date Former smoker [id number] 04/05/1955 Patient Decision Aids Unknown or Not Available. Discharge Instructions You were admitted to [facility] on 05/18/2022 04:11 with a principal diagnosis of Dehydration You had the following tests done:URINALYSIS WITH MICRO AND REFLEX CULTUR*GLUCOSE FINGER/HEEL CAPILLARYCOPLEY COVID FLU RSV GENEXPERTC REACTIVE PROTEIN HIGH SENSITIVITY*CBC W/ DIFFERENTIAL*COMPREHENSIVE METABOLIC PANEL (CMP)SED RATE*TROPONIN HIGH SENSITIVITY* You were discharged from [facility] on 05/18/2022 10:20 Should you [...]
--- OUTSIDE RECORDS SUMMARY | 2023-03-22 14:41 | XMS_ITS | CCD ---
Author Name Unknown Address [address] [place] [address] [phone] Organization Unknown Address [address] [place] [address] [phone] Care Team Providers Care Road Consultant Name Role Phone TYLER HUMMEL Attending Physician [phone] TYLER HUMMEL Rounding (Secondary) Physician [phone] Vital Signs Unknown or Not Available. Allergies Allergy Code Allergy Type Reaction Status GARLIC OIL 3299115 Drug allergy Hives Active Procedures Unknown or Not Available. History of Immunizations Unknown or Not Available. Problems Problem Code Start Date Resolved Date Status Failure to thrive 15812917 Active Functional quadriplegia 264139914209063 Active Type 2 diabetes 94905883 Active Weakness 93040379 Active Unsteady gait 10763948 Active JANAE - acute kidney injury 66888858 07/02/2022 Resolved Diabetes 56483727 04/23/2021 Resolved Results Unknown or Not Available. Active Medications Medication Code Dose Units Frequency Route Modificatio n Start Date/Time Aspir 81 81MG Oral Tablet, Enteric Coated [id number] 81 MILLIGRAMS DAILY ORAL 09:29 Prescription Detail TAKE 81 MILLIGRAMS ORAL DAILY Dulcolax 100MG Oral Capsule, Liquid Filled 48521732290 100 MILLIGRAMS TWICE A DAY ORAL 0 04/28/2021 09:29 Prescription Detail TAKE 100 MILLIGRAMS ORAL TWICE A DAY Omeprazole 20MG Oral Capsule, Delayed Release 345109 20 MILLIGRAMS DAILY ORAL 09:29 Prescription Detail TAKE 20 MILLIGRAMS ORAL DAILY Medications Administered During Visit Unknown or Not Available. Encounters Encounter Diagnosis Diagnosis Code Start Date Acute kidney failure, unspecified N179 04/23/2021 Social History Smoking Status Code Start Date End Date Former smoker [id number] 04/05/1955 Patient Decision Aids Unknown or Not Available. Discharge Instructions You were admitted to [facility] on 04/23/2021 08:48 with a principal diagnosis of Acute kidney failure, unspecified You were discharged from [facility] on 04/28/2021 08:49 Should you have [...]
--- OUTSIDE RECORDS SUMMARY | 2023-03-22 14:42 | XMS_ITS | CCD ---
Author Name Unknown Address [address] [place] [address] [phone] Organization Unknown Address [address] [place] [address] [phone] Care Team Providers Care Ultrasound Spec Name Role Phone TYLER HUMMEL Attending Physician [phone] DUY PEREZ (Secondary) Physicia n [phone] Vital Signs Unknown or Not Available. Allergies Allergy Code Allergy Type Reaction Status GARLIC OIL 8393862 Drug allergy Hives Active Procedures Unknown or Not Available. History of Immunizations Unknown or Not Available. Problems Problem Code Start Date Resolved Date Status Failure to thrive 51633969 Active Functional quadriplegia 344124404419728 Active Type 2 diabetes 36272167 Active Weakness 93388703 Active Unsteady gait 69063392 Active JANAE - acute kidney injury 38243592 07/02/2022 Resolved Diabetes 34026930 04/23/2021 Resolved Results Unknown or Not Available. Active Medications Medication Code Dose Units Frequency Route Modificatio n Start Date/Time Aspir 81 81MG Oral Tablet, Enteric Coated [id number] 81 MILLIGRAMS DAILY ORAL 09:29 Prescription Detail TAKE 81 MILLIGRAMS ORAL DAILY Dulcolax 100MG Oral Capsule, Liquid Filled 65330412209 100 MILLIGRAMS TWICE A DAY ORAL 0 04/28/2021 09:29 Prescription Detail TAKE 100 MILLIGRAMS ORAL TWICE A DAY Omeprazole 20MG Oral Capsule, Delayed Release 160972 20 MILLIGRAMS DAILY ORAL 09:29 Prescription Detail TAKE 20 MILLIGRAMS ORAL DAILY Medications Administered During Visit Unknown or Not Available. Encounters Encounter Diagnosis Diagnosis Code Start Date Weakness R531 04/23/2021 Social History Unknown or Not Available. Patient Decision Aids Unknown or Not Available. Discharge Instructions You were admitted to [facility] on 04/23/2021 23:21 with a principal diagnosis of Weakness You were discharged from [facility] on 04/25/2021 14:41 Should you have any [...]
--- OUTSIDE RECORDS SUMMARY | 2023-03-22 14:42 | XMS_ITS | CCD ---
Author Name Unknown Address [address] [place] [address] [phone] Organization Unknown Address [address] [place] [address] [phone] Care Team Providers Care Customer Operations Specialist Name Role Phone TYLER HUMMEL Attending Physician [phone] MENDEZ LAGUNA Er Physician 8 [phone] DUY PEREZ (Secondary) Physicia n [phone] W.JUSTICE Registered Nurse [phone] W.DADA Registered Nurse [phone] PROYA Richardson Registered Nurse [phone] Vital Signs Vital Sign Value Unit Date/Time [...] Code Allergy Type Reaction Status GARLIC OIL 5335328 Drug allergy Hives Active Procedures Unknown or Not Available. History of Immunizations Unknown or Not Available. Problems Problem Code Start Date Resolved Date Status Failure to thrive 13242544 Active Functional quadriplegia 382163223256669 Active Type 2 diabetes 56249592 Active Weakness 81325648 Active Unsteady gait 40194281 Active JANAE - acute kidney injury 61139612 07/02/2022 Resolved Results BASIC METABOLIC PANEL (BMP) [...] 2028-9 31 mmol/L L=22 H=34 ANION GAP 86257-1 5.3 mmol/L CALCIUM SERUM 56260-3 8.5 mg/dL L=8.2 H=10. 2 AGE 80 years eGFR (non-Afr.Amer.) 02033-6 66 mL/min eGFR (Afr-Haitian) 26566-6 79 mL/min COMPREHENSIVE METABOLIC PANE L (CMP) [...] 2028-9 24 mmol/L L=22 H=34 ANION GAP 75691-2 12.4 mmol/L CALCIUM SERUM 37982-1 9.0 mg/dL L=8.2 H=10. 2 BILIRUBIN TOTAL 1975-2 0.7 mg/dL L=0.0 H=1 .3 ALK. PHOS. 6768-6 130 U/L L=46 H=116 SGOT (AST) 1920-8 22 U/L L=15 H=37 SGPT (ALT) 1742-6 33 U/L L=12 H=78 TOTAL PROTEIN 2885-2 7.6 gm/dL L=6.0 H=8.0 ALBUMIN 1751-7 3.5 gm/dL L=3.4 H=5.0 AGE 80 years eGFR (non-Afr.Amer.) 21858-7 52 mL/min eGFR (Afr-Haitian) 94341-9 62 mL/min GLUCOSE FINGER/HEEL CAPILLAR Y - [...] Test Units Test Ref Rang e TROPONIN-I 09065-2 <0.017 ng/mL L=0.000 H=0.06 0 Specimen seq. Random N/A CBC W/ DIFFERENTIAL* - Colle ct Date/Time: 04/24/2021 06:50 Test Name Code Test Result Test Units Test Ref Rang e WBC 6690-2 7.17 th/cmm L=5.00 H=10.00 NEUT % 63.5 % L=40.0 H=80.0 LYMPH % 20.6 % L=10.0 H=50.0 MONO % 29036-0 14.1 % L=2.0 H=12.0 EOS % 1.0 % L=0.0 H=8.0 BASO % 0.7 % L=0.0 H=3.0 IG % 2514-8 0.1 % L=0.0 H=1.1 NRBC % 48750-2 0.0 % L=0.0 H=0.0 NEUT abs count 751-8 4.6 th/cmm L=1.6 H=8. 4 LYMPH abs count 731-0 1.5 th/cmm L=1.5 H=4 .0 MONO abs count 742-7 1.0 th/cmm L=0.2 H=1. 0 EOS abs count 711-2 0.1 th/cmm L=0.0 H=0.5 BASO abs count 704-7 0.1 th/cmm L=0.0 H=0. 2 IG abs count 83973-8 0.0 th/cmm L=0.0 H=0.1 NRBC abs count 41077-2 0.0 mil/cmm L=0.0 H=0. 0 RBC 789-8 [...] % 10.8 % L=10.0 H=50.0 MONO % 21655-4 10.7 % L=2.0 H=12.0 EOS % 0.1 % L=0.0 H=8.0 BASO % 0.4 % L=0.0 H=3.0 IG % 2514-8 0.3 % L=0.0 H=1.1 NRBC % 32563-9 0.0 % L=0.0 H=0.0 NEUT abs count 751-8 8.8 th/cmm L=1.6 H=8. 4 LYMPH abs count 731-0 1.2 th/cmm L=1.5 H=4 .0 MONO abs count 742-7 1.2 th/cmm L=0.2 H=1. 0 EOS abs count 711-2 0.0 th/cmm L=0.0 H=0.5 BASO abs count 704-7 0.1 th/cmm L=0.0 H=0. 2 IG abs count 87956-3 0.0 th/cmm L=0.0 H=0.1 NRBC abs count 49862-2 0.0 mil/cmm L=0.0 H=0. 0 RBC 789-8 [...] Test Units Test Ref Rang e COVID 07895-5 NEGATIVE N/A Normal: Negati ve INFLUENZA A DNA 65494-7 NEGATIVE N/A Normal: N egative INFLUENZA B DNA 53115-3 NEGATIVE N/A Normal: N egative RSV DNA 96403-1 NEGATIVE N/A Normal: Negati ve URINALYSIS WITH MICRO AND RE FLEX CULTUR* - Collect Date/Time: 04/23/2021 22:03 Test Name Code Test Result Test Units Test Ref Rang e COLLECTION MODE: CLEAN CATCH N/A Color 5778-6 YELLOW N/A yellow Appearance 5767-9 CLEAR N/A clear Glucose urine 79104-3 500 N/A negative mg /dl Bilirubin 5770-3 NEGATIVE N/A negative Ketones 2514-8 NEGATIVE N/A negative mg/dl Spec gravity 5811-5 <=1.005 N/A 1.003 - 1.03 0 pH urine 2756-5 6.0 N/A 5.0 - 7.0 Protein 49599-0 NEGATIVE N/A negative mg/dl Urobilinogen 82684-1 0.2 N/A <or= 1 EU/dl Nitrite. 5802-4 NEGATIVE N/A negative Blood 5794-3 NEGATIVE N/A negative Leukocytes. NEGATIVE N/A negative WBCs. 58409-3 0-5 N/A 0-5 / hpf RBCs 33965-6 0-5 N/A 0-5 / hpf Epith cells 99648-9 0-5 N/A 0-5 / hpf Cell types [...] Code Start Date End Date Former smoker [id number] 04/05/1955 Patient Decision Aids Unknown or Not Available. Discharge Instructions You were admitted to [facility] on 04/25/2021 14:41 with a principal diagnosis of Acute kidney failure, unspecified You had the following tests done:GLUCOSE FINGER/HEEL CAPILLARYGLUCOSE FINGER/HEEL CAPILLARYGLUCOSE FINGER/HEEL CAPILLARYGLUCOSE FINGER/HEEL CAPILLARYGLUCOSE FINGER/HEEL CAPILLARYGLUCOSE FINGER/HEEL CAPILLARYBASIC METABOLIC PANEL (BMP)CBC W/ DIFFERENTIAL*[facility] COVID FLU RSV GENEXPERTURINALYSIS WITH MICRO AND REFLEX CULTUR*ORDER VENOUS BLOOD GAS*CBC W/ DIFFERENTIAL*COMPREHENSIVE METABOLIC PANEL (CMP)KETONES QUALTHYROID TESTING CASCADE*TROPONIN HIGH SENSITIVITY*TROPONIN-I* You were discharged from [facility] on 04/28/2021 11:30 Should you have [...]
[2023-03-22 16:09] LABS: Abs Immature Grans 0.01 10^3/uL (0.0-0.06); Absolute Basophil Count 0.05 10^3/uL (0.0-0.2); Absolute Eosinophil Count 0.18 10^3/uL (0.0-0.7); Absolute Lymphocyte Count 1.64 10^3/uL (1.2-3.4); Absolute Monocyte Count 0.71 10^3/uL (0.1-0.8); Absolute Neutrophil Count 3.35 10^3/uL (1.2-6.7); Basophils % 0.8; HCT 38.4 % (40.0-50.0); HGB 13.4 g/dL (13.5-17.5); Immature Grans % 0.2; Lymphocytes % 27.6; MCH 33.1 pg (27.0-33.0); MCHC 34.9 % (32.0-36.0); MCV 95 fL (80-95); MPV 9.4 fL (8.0-11.0); Neutrophils % 56.4; Platelet Count 297 10^3/uL (130-400); RBC 4.05 10^6/uL (4.36-5.78); RDW 13.2 % (11.8-14.1); RDW-SD 46.8 fL; WBC 5.94 10^3/uL (4.4-10.8)
[2023-03-22 16:34] LABS: ALT 34 U/L (16-63); AST 25 U/L (15-37); Albumin 3.2 g/dL (3.4-5.0); Alkaline Phosphatase 142 U/L (46-116); Anion Gap 8.5 mmol/L (3-11); BUN 19 mg/dL (7-18); Bilirubin, Total 0.4 mg/dL (0.2-1.0); CO2 27.5 mmol/L (21.0-32.0); CREATININE 1.4 mg/dL (0.70-1.30); Chloride 100 mmol/L (98-107); Estimated GFR 49.87 (mL/min/1.73m2); Glucose 84 mg/dL (74-106); Potassium 4.4 mmol/L (3.5-5.1); Sodium 136 mmol/L (136-145); TSH (W/Ref FT4) 1.01 uIU/mL (0.36-3.74); Total Protein 7.2 g/dL (6.4-8.2)
== END 2023-03-22 14:40 | disposition home or self-care (01) ==
LOC: NCHCN 14:39
PROVIDERS: PCP Family Medicine; Visit Provider Family Medicine
DX: E11.29 Type 2 diabetes mellitus with other diabetic kidney complication (principal); N17.9 Acute kidney failure, unspecified; R62.7 Adult failure to thrive
CPT/HCPCS: 80053; 84443; 85025

== ENCOUNTER 2023-06-08 21:38 | Outpatient (REF) | payer MEDICARE, BC, SELFPAY ==
[2023-06-08 22:12] LABS: COVID-19 PCR Negative (Negative); Influenza A PCR Negative (Negative); Influenza B PCR Negative (Negative); RSV PCR Negative (Negative)
[2023-06-08 22:15] LABS: Source Nasopharynx
== END 2023-06-08 21:39 | disposition home or self-care (01) ==
LOC: NCHCN 21:38
PROVIDERS: PCP Family Medicine; Visit Provider Family Medicine
DX: R50.81 Fever presenting with conditions classified elsewhere (principal); Z20.828 Contact with and (suspected) exposure to other viral communicable diseases
CPT/HCPCS: 87637

== ENCOUNTER 2023-07-19 22:32 | Outpatient (REF) | payer MEDICARE, BC, SELFPAY ==
[2023-07-19 23:34] LABS: Anion Gap 9.6 mmol/L (3-11); BUN 20 mg/dL (7-18); CO2 28.4 mmol/L (21.0-32.0); CREATININE 1.2 mg/dL (0.70-1.30); Calcium 8.8 mg/dL (8.5-10.1); Chloride 101 mmol/L (98-107); Glucose 64 mg/dL (74-106); Potassium 4.7 mmol/L (3.5-5.1); Sodium 139 mmol/L (136-145)
[2023-07-19 23:45] LABS: Hemoglobin A1C 5.7 % (<5.7)
== END 2023-07-19 22:33 | disposition home or self-care (01) ==
LOC: NCHCN 22:32
PROVIDERS: PCP Family Medicine; Visit Provider Family Medicine
DX: E11.29 Type 2 diabetes mellitus with other diabetic kidney complication (principal)
CPT/HCPCS: 80048; 83036

== ENCOUNTER 2023-10-04 18:17 | Outpatient (REF) | payer MEDICARE, BC, SELFPAY ==
[2023-10-04 16:19] LABS: Hemoglobin A1C 6.5 % (<5.7)
[2023-10-04 17:02] LABS: Anion Gap 10.3 mmol/L (3-11); BUN 19 mg/dL (7-18); CO2 25.7 mmol/L (21.0-32.0); CREATININE 1.4 mg/dL (0.70-1.30); Chloride 97 mmol/L (98-107); Estimated GFR 49.87 (mL/min/1.73m2); Glucose 147 mg/dL (74-106); Potassium 5.1 mmol/L (3.5-5.1); Sodium 133 mmol/L (136-145)
--- OUTSIDE RECORDS SUMMARY | 2023-10-04 18:20 | XMS_ITS ---
Author Name Unknown Address [address] [place] [address] [phone] Phone Organization Unknown Address [address] [place] [address] [phone] Phone Care Team Providers Care Emergency Nurse Name Role Phone ESTEPHANIE Tucker Attending Unavailable TERRY Andersen Primary Unavailable Social History Type Status Start Date End Date Code Code Syst em Smoking History Former smoker 04/05/19545229 6299086 SNOMED CT Sex Male Medications Medication Start Date End Date Route Frequency Dose Code Code System Medication Instructions Home Meds Aspir 81 81MG Oral Tablet, Enteric Coated 04/28/2021 Unknown ORAL DAILY 81 MILLIGRAMS RxNorm TAKE 81 MILLIGRAMS ORAL DAILY Dulcolax 100MG Oral Capsule, Liquid Filled 04/28/2021 Unknown ORAL TWICE A DAY 100 MILLIGRAMS RxNorm TAKE 100 MILLIGRAMS ORAL TWICE A DAY Losartan Potassium 25MG Oral Tablet 04/28/2021 07/02/2022 ORAL DAILY 25 MILLIGRAMS 562656 RxNorm TAKE 25 MILLIGRAMS ORAL DAILY Omeprazole 20MG Oral Capsule, Delayed Release 04/28/2021 Unknown ORAL DAILY 20 MILLIGRAMS 849240 RxNorm TAKE 20 MILLIGRAMS ORAL DAILY glipiZIDE 2.5MG Oral Tablet, Extended Release 04/28/2021 07/02/2022 ORAL DAILY 2.5 MILLIGRAMS 444934 RxNorm TAKE 2.5 MILLIGRAMS ORAL DAILY Assessment You had the following problems: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 If you have left the hospital and have any questions, please contact your primary care physician. 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 53680678 SN OMED-CT FUNCTIONAL QUADRIPLEGIA active 926381 091929797 SNOMED-CT TYPE 2 DIABETES active 71851163 SNOM ED-CT WEAKNESS active 71133009 SNOMED-CT UNSTEADY GAIT active 15693564 SNOMED -CT JANAE - ACUTE KIDNEY INJURY 07/02/2022 resolved 80760934 SNOMED-CT DIABETES 04/23/2021 resolved 27879667 SNOMED-CT Allergies and Adverse Reactions Allergy Substance Reaction Severity Start Date Concern Status Code Code Syste m GARLIC OIL Hives (SNOMED-CT: 743988138) Active 0406347 RxNorm Plan of Treatment No Data Found Encounters Encounter Diagnosis Start Date Code Code Sys tem Acute kidney failure, unspecified 04/23/2021 SNOMED-CT Personal Care Team Section Performer Name Performer Role Active Date Inactive Gregory middleton
--- OUTSIDE RECORDS SUMMARY | 2023-10-04 18:20 | XMS_ITS ---
Author Name Unknown Address [address] [place] [address] [phone] Phone Organization Unknown Address [address] [place] [address] [phone] Phone Care Team Providers Care Protection Mgr Name Role Phone ESTEPHANIE Tucker Attending Unavailable CHRIS Arias Secondary Unavailable Social History Type Status Start Date End Date Code Code Syst em Smoking History Former smoker 04/05/19549961 1829110 SNOMED CT Sex Male Medications Medication Start [...] Tablet 04/28/2021 07/02/2022 ORAL DAILY 25 MILLIGRAMS 355967 RxNorm TAKE 25 MILLIGRAMS ORAL DAILY Omeprazole 20MG Oral Capsule, Delayed Release 04/28/2021 Unknown ORAL DAILY 20 MILLIGRAMS 498182 RxNorm TAKE 20 MILLIGRAMS ORAL DAILY glipiZIDE 2.5MG Oral Tablet, Extended Release 04/28/2021 07/02/2022 ORAL DAILY 2.5 MILLIGRAMS 629468 RxNorm TAKE 2.5 MILLIGRAMS ORAL DAILY Assessment You had the following problems: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 If you have left the hospital and have any questions, please contact your primary care physician. 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 97948922 SN OMED-CT FUNCTIONAL QUADRIPLEGIA active 698086 717895001 SNOMED-CT TYPE 2 DIABETES active 95527167 SNOM ED-CT WEAKNESS active 05361613 SNOMED-CT UNSTEADY GAIT active 62556459 SNOMED -CT JANAE - ACUTE KIDNEY INJURY 07/02/2022 resolved 93625418 SNOMED-CT DIABETES 04/23/2021 resolved 34588248 SNOMED-CT Allergies and Adverse Reactions Allergy Substance Reaction Severity Start Date Concern Status Code Code Syste m GARLIC OIL Hives (SNOMED-CT: 260201354) Active 8926638 RxNorm Plan of Treatment No Data Found Encounters Encounter Diagnosis Start Date Code Code Sys tem Weakness 04/23/2021 SNOMED-CT Personal Care Team Section Performer Name Performer Role Active Date Inactive Da emi
--- OUTSIDE RECORDS SUMMARY | 2023-10-04 18:21 | XMS_ITS ---
Author Name Unknown Address [address] [place] [phone] Phone Organization Unknown Address [address] [place] [address] [phone] Phone Care Team Providers Care Subway Operator Name Role Phone OSMIN SKINNER Registered Nurse Unavailable NANI TEMPLE Registered Nurse Unavailable RIANNA PEREZ Registered Nurse Unavailable Unavailable Xwatchlist Unavailable ESTEPHANIE Tucker Attending Unavailable HEMMER SOTERO [facility] Unavailable FELSTED JOE A Primary Unavailable ELSY ANNEMARIE J Secondary Unavailable UNLISTED PROVIDER - REQUESTED Xhandoff Un available ESTEPHANIE Tucker Transferring Provider Results GLUCOSE FINGER/HEEL CAPILLAR Y - Collect Date/Time: 07/06/2022 07:36 [facility] ID: [id number] [address] [place], [place], [id number] LOINC: 41979-1 Test Value Unit Reference Range Code Code System Flag GLUCOSE CAP 156 mg/dL L=70 H=116 H GLUCOSE FINGER/HEEL CAPILLAR Y - Collect Date/Time: 07/05/2022 07:35 [facility] ID: [id number] [address] [place], [place], [id number] LOINC: 86468-6 Test Value Unit Reference Range Code Code System Flag GLUCOSE CAP 157 mg/dL L=70 H=116 H GLUCOSE FINGER/HEEL CAPILLAR Y - Collect Date/Time: 07/04/2022 08:04 [facility] ID: [id number] [address] [place] [address], [id number] LOINC: 25693-9 Test Value Unit Reference Range Code Code System Flag GLUCOSE CAP 161 mg/dL L=70 H=116 H GLUCOSE FINGER/HEEL CAPILLAR Y - Collect Date/Time: 07/03/2022 20:19 [facility] ID: [id number] [address] [place], [place], [id number] LOINC: 21465-5 Test Value Unit Reference Range Code Code System Flag GLUCOSE CAP 230 mg/dL L=70 H=116 H GLUCOSE FINGER/HEEL CAPILLAR Y - Collect Date/Time: 07/03/2022 06:30 [facility] ID: [id number] [address] [place] [address], [id number] LOINC: 78598-2 Test Value Unit Reference Range Code Code System Flag GLUCOSE CAP 137 mg/dL L=70 H=116 H URINALYSIS WITH REFLEX CULT IF POSITIVE* - Collect Date/Time: 07/02/2022 08:35 [facility] ID: [id number] [address] [place] [address], [address] LOINC: 09895-0 Test Value Unit Reference Range Code Code System Flag COLLECTION MODE: CLEAN CATCH 99503-6 LOINC Color YELLOW yellow 5778-6 LOINC Appearance CLEAR clear 5767-9 LOINC Glucose urine 250 negative mg/dl 11853-3 LOINC A Bilirubin NEGATIVE negative 5770-3 LOINC Ketones NEGATIVE negative mg/dl 2514-8 LOINC Spec gravity 1.010 1.003 - 1.030 5811-5 LOINC pH urine 7.5 5.0 - 7.0 2756-5 LOINC A Protein NEGATIVE negative mg/dl 90943-6 LOINC Urobilinogen 0.2 <or= 1 EU/dl 36699-7 LOINC Nitrite. NEGATIVE negative 5802-4 LOINC Blood NEGATIVE negative 5794-3 LOINC Leukocytes. NEGATIVE negative MICROSCOPIC NOT INDICAT GLUCOSE FINGER/HEEL CAPILLAR Y - Collect Date/Time: 07/02/2022 07:40 [facility] ID: [id number] [address] [place] [address], [id number] LOINC: 03263-6 Test Value Unit Reference Range Code Code System Flag GLUCOSE CAP 172 mg/dL L=70 H=116 H [facility] COVID FLU RSV GENEXPE RT - Collect Date/Time: 07/02/2022 06:47 [facility] ID: [id number] [address] [place] [address], [id number] LOINC: 47961-7 Test Value Unit Reference Range Code Code System Flag COVID NEGATIVE Normal: Negative 77628-0 LOINC INFLUENZA A DNA NEGATIVE Normal: Negative 48995-2 LOINC INFLUENZA B DNA NEGATIVE Normal: Negative 25626-6 LOINC RSV DNA NEGATIVE Normal: Negative 81884-3 LOINC TROPONIN HIGH SENSITIVITY* - Collect Date/Time: 07/02/2022 06:47 [facility] ID: [id number] [address] [place] [address], [address] LOINC: 46183-0 Test Value Unit Reference Range Code Code System Flag TROPONIN HS 8.2 pg/mL L=0.0 H=60.4 Specimen seq. RANDOM COMPREHENSIVE METABOLIC PANE L (CMP) - Collect Date/Time: 07/02/2022 06:47 [facility] ID: [id number] [address] [place] [address], [address] LOINC: 66658-5 Test Value Unit Reference Range Code Code System Flag GLUCOSE 179 mg/dL L=70 H=116 2345-7 LOINC H BUN 20 mg/dL L=6 H=25 3094-0 LOINC CREATININE 1.03 mg/dL L=0.67 H=1.17 2160-0 LOINC SODIUM SERUM 138 mmol/L L=136 H=145 2951-2 LOINC POTASSIUM SERUM 4.2 mmol/L L=3.4 H=5.2 2823-3 LOINC CHLORIDE SERUM 101 mmol/L L=96 H=110 2075-0 LOINC CARBON DIOXIDE (CO2) 29 mmol/L L=22 H=34 2028-9 LOINC ANION GAP 8.1 mmol/L 92045-0 LOINC CALCIUM SERUM 9.1 mg/dL L=8.2 H=10.2 69729-7 LOINC BILIRUBIN TOTAL 0.8 mg/dL L=0.0 H=1.3 1975-2 LOINC ALK. PHOS. 215 U/L L=46 H=116 6768-6 LOINC H SGOT (AST) 28 U/L L=15 H=37 1920-8 LOINC SGPT (ALT) 83 U/L L=12 H=78 1742-6 LOINC H TOTAL PROTEIN 8.1 gm/dL L=6.0 H=8.0 2885-2 LOINC H ALBUMIN 3.1 gm/dL L=3.4 H=5.0 1751-7 LOINC L AGE 81 years eGFR (non-Afr.Amer.) 69 mL/min 55318-1 LOINC eGFR (Afr-Belarusian) 84 mL/min 46809-9 LOINC CBC W/ DIFFERENTIAL* - Colle ct Date/Time: 07/02/2022 06:47 [facility] ID: [id number] [address] [place], [place], [address] LOINC: 81470-4 Test Value Unit Reference Range Code Code System Flag WBC 7.73 th/cmm L=5.00 H=10.00 6690-2 LOINC NEUT % 70.6 % L=40.0 H=80.0 LYMPH % 16.7 % L=10.0 H=50.0 MONO % 10.6 % L=2.0 H=12.0 57001-3 LOINC EOS % 1.6 % L=0.0 H=8.0 BASO % 0.4 % L=0.0 H=3.0 IG % 0.1 % L=0.0 H=1.1 2514-8 LOINC NRBC % 0.0 % L=0.0 H=0.0 26254-9 LOINC NEUT abs count 5.5 th/cmm L=1.6 H=8.4 751-8 LOINC LYMPH abs count 1.3 th/cmm L=1.5 H=4.0 731-0 LOINC L MONO abs count 0.8 th/cmm L=0.2 H=1.0 742-7 LOINC EOS abs count 0.1 th/cmm L=0.0 H=0.5 711-2 LOINC BASO abs count 0.0 th/cmm L=0.0 H=0.2 704-7 LOINC IG abs count 0.0 th/cmm L=0.0 H=0.1 15151-9 LOINC NRBC abs count 0.0 mil/cmm L=0.0 H=0.0 01458-6 LOINC RBC 4.50 mil/cmm L=4.30 H=6.20 789-8 LOINC HEMOGLOBIN 15.1 gm/dL L=13.0 H=17.0 718-7 LOINC HEMATOCRIT 44 % L=45 H=52 4544-3 LOINC L MCV 98 fL L=82 H=92 787-2 LOINC H MCH 33.6 pg L=27.0 H=31.0 785-6 LOINC H MCHC 34.4 % L=32.0 H=36.0 786-4 LOINC RDW-SD 45.5 fL L=39.0 H=49.0 788-0 LOINC PLATELET COUNT 247 th/cmm L=150 H=450 777-3 LOINC XR CHEST PORTABLE OR 1V - Co mpleted: 07/02/2022 07:27 LOINC: [facility] RADI[facility] [place], [place] [address] PACS RN ONCOLOGY RESEARCH REPORT Patient Name: NATY BONILLA MRN: Sex: : Age: [id number] M [id number] 81 Account: Accession: Admit: StayType: [id number] 07/02/2022 E/R Ordered: Order ID: Submitted: Ordering Provider: 07/02/2022 06:59 [id number] ANNEMARIE SPENCE Completed: Technologist: Resulted: 07/02/2022 07:27 MJP 07/02/2022 07:41 Study Description: XR CHEST PORTABLE OR 1V Study Reason: generalized weakness Technique: 2D digital imaging was performed of the chest. 1 images were obtained. Comparison: Comparison is made with prior examinations. FINDINGS: MEDIASTINUM: Normal. HEART: Normal. PULMONARY VASCULATURE: Normal. LUNGS: Clear. PLEURAL SPACE: No pleural effusion or pneumothorax. BONE:Within normal limits for the patient's age. OTHER FINDINGS: There is elevation of the right hemidiaphragm. IMPRESSION: No acute pulmonary findings. Report Digitally Signed by Andry Goins on 07/02/2022 07:41 AM EDT Social History Type Status Start Date End Date Code Code Syst em Smoking History Former smoker 04/05/19540609 9191177 SNOMED CT Sex Male Vital Signs Vital Sign Value Unit Maverick Value Maverick Unit Date/Time Recent/Initial? Code Code System Body Mass Index 24.63 kg/m2 07/02/2022 06:44 Initial 45985 -5 LOINC Systolic Blood Pressure 159 mm[Hg] 07/07/2022 07:36 Most Recent 8480- 6 LOINC Diastolic Blood Pressure 79 mm[Hg] 07/07/2022 07:36 Most Recent 8462- 4 LOINC Systolic Blood Pressure 162 mm[Hg] 07/02/2022 06:44 Initial 8480- 6 LOINC Diastolic Blood Pressure 62 mm[Hg] 07/02/2022 06:44 Initial 8462- 4 LOINC Body Surface Area 1.75 m2 07/02/2022 06:44 Initial 3140- 1 LOINC Height 165.100 0 cm 65.00 in 07/02/2022 06:44 Initial 8302- 2 LOINC O2 Saturation 96 % 2022 07:36 Most Recent 62477 -5 LOINC O2 Saturation 96 % 2022 06:44 Initial 04126 -5 LOINC Fraction of Inspired Oxygen 21 % 07/03/2022 23:35 Initial 3150- 0 LOINC Pulse 62.0 /min 07/07/2022 07:36 Most Recent 8867- 4 LOINC Pulse 73.0 /min 07/02/2022 06:44 Initial 8867- 4 LOINC Respiration 20 /min 07/08/19 23 07:36 Most Recent 9279- 1 LOINC Respiration 18 /min 07/03/19 06:44 Initial 9279- 1 LOINC Temperature 36.2 Kristina 97.2 F 07/08/19 07:36 Most Recent 8310- 5 LOINC Temperature 36.3 Kristina 97.3 F 07/03/19 06:44 Initial 8310- 5 LOINC Weight 67.13 kg 148.00 lbs 07/02/2022 06:44 Initial 39871 -7 LOINC Medications Medication Start Date End Date Route Frequency Dose Code Code System Medication Instructions Home Meds Aspir 81 81MG Oral Tablet, Enteric Coated 04/28/2021 Unknown ORAL DAILY 81 MILLIGRAMS RxNorm TAKE 81 MILLIGRAMS ORAL DAILY Dulcolax 100MG Oral Capsule, Liquid Filled 04/28/2021 Unknown ORAL TWICE A DAY 100 MILLIGRAMS RxNorm TAKE 100 MILLIGRAMS ORAL TWICE A DAY Omeprazole 20MG Oral Capsule, Delayed Release 04/28/2021 Unknown ORAL DAILY 20 MILLIGRAMS 359079 RxNorm TAKE 20 MILLIGRAMS ORAL DAILY Assessment You had the following problems:FAILURE TO THRIVEFUNCTIONAL QUADRIPLEGIATYPE [address] [facility] Discharge Instructions Should you have any questions prior to discharge, please contact a member of your healthcare team. If you have left the hospital and have any questions, please contact your primary care physician. Reason For Referral Receiving Provider: [facility]ENTER[facility]se[facility] 8361 Problems Problem Start Date Resolved Date Status Code Code System 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 43022310 SN OMED-CT FUNCTIONAL QUADRIPLEGIA active 551890 994638756 SNOMED-CT TYPE 2 DIABETES active 77657048 SNOM ED-CT WEAKNESS active 89468496 SNOMED-CT UNSTEADY GAIT active 55742726 SNOMED -CT JANAE - ACUTE KIDNEY INJURY 07/02/2022 resolved 61630007 SNOMED-CT DIABETES 04/23/2021 resolved 32167119 SNOMED-CT Allergies and Adverse Reactions Allergy Substance Reaction Severity Start Date Concern Status Code Code Tonya AMARO OIL Hivtitus (SNOMED-CT: 165786869) Active 9024202 RxNorm Plan of Treatment Plan Patient be placed on observation PT and OT evals Ambulate with assistance and with use of a walker Continue losartan for hypertension Continue glipizide for diabetes, monitor blood sugar Encounters Encounter Diagnosis Start Date Code Code Sys tem Adult failure to thrive 07/03/2022 SN ED-CT Personal Care Team Section Performer Name Performer Role Active Date Inactive Da te Consultation Notes [facility] 07/02/2022 11:59 All Demographics Patient Name Age Sex Visit Number Admission Date/Time Attending Physician Date of Service Room and Bed Emergency Contact NATY BONILLA SR 1940 81 years Male [id number] 07/02/2022 06:36 ANNEMARIE CHIN 07/02/2022 3A TIM BONILLA A - [id number] REHABILITATION SERVICES _x__Physical Therapy ___Occupational Therapy ___Athletic Training ___Speech/Language Pathology SERVICE TYPE: ____Inpatient ____Outpatient _x___Emergency Department Other: For All Outpatient , ED, Observation and Outpatient Surgery patients: Is the patient currently under a Home Health Plan of Care? Yes _x___ No____ (If Yes, give a copy of this completed from to the Automation Controls Engineer). Date of Service: 07/02/2022 Visit #: _1 Time: ____1148 Note Type: _x__Initial Visit ___Treatment Note ___Progress Report ___Contact Note ___Re-Evaluation ___Discharge Summary Subjective: Pt states he wants to go home and can walk. Spouse and [id number] in present for evaluation state pt was told by Home Health PT that pt is to use a wc for mobility and will walk with PT. Family state pt is at baseline, however, is unsteady and falls and spouse is unable to assist pt with mobility. Pain: Denies. Past Medical History: Problem List Failure to thrive JANAE - acute kidney injury Functional quadriplegia Type 2 diabetes Home Environment: Per pt and spouse home is 1 level with 2 steps 1 rail onto porch, 1 step into home. Equipment Used prior/Assisted devices owned: RW, wc. Services used upon admission: Home Health services to include PT. Tamara Dugan RN from pt care services received approval from [facility]ly for PT eval in ER. Objective (current observed/measured function; other measurements): Pt requires cg-modx1 assist with all mobility, is unsteady, requires vc's for safety. Treatment Received: Supine to sit: Minx1 Sit to supine: Modx1 Sit to stand: CGx1 vc's for hand placement. Stand to sit:CGx1 vc's for hand placement. Gait: Amb with RW, 140', CCGx1. Pt with trunk flexion, is unsteady, and requires vc's to stay within RW. Stairs: Not assessed as pt is unsteady and family state they would not be able to assist him on stairs. Assessment:Pt requires cg-modx1 assist with all mobility as pt is unsteady and requires vc's for safety. Time Coded Treatment Minutes: 0 Mins Total Treatment Time: 45 Mins E-signed 07/02/2022 11:47 History and Physical Notes [facility] 07/02/2022 14:35 Patient Name Age Sex Admission Date/Time NATY BONILLA 1940 81 years Male 07/02/2022 06:36 07/02/2022 13:38 Admission Date: 07/02/2022 Reason for Admission: Weakness, fall, unsteady gait Code Status: Full code Attending Physician: Dennise Siegel MD Primary Care Physician: TERRY Andersen History of Present Illness Chief Complaint: NOT FEELING WELL 81-year-old male with history of remote stroke about 30 years ago who lives at home with his . He typically gets around with a walker. He does have a wheelchair in the home as well. He tells me that he fell at home this morning due to generalized weakness. He denied any injury with the fall. He told me that they took me off my walker, when asked specific questions he states that home health told him to stop using his walker. Sounds like they were encouraging him to use his wheelchair instead. However, he tells me that ever since he stopped using the walker everything has gone downhill. He reports he has fallen 4-5 times since he has been using the wheelchair. He does have a riser for his toilet which does help. He also reports that he has been sick to his stomach for about 2 weeks. He has not had any vomiting or diarrhea however, he states that his stomach has been a bit upset. He feels that his weakness has gotten worse since he became ill. Past Medical/Surgical/Family/Social History Past Medical History Diabetes, Failure to thrive, JANAE - acute kidney injury, Functional quadriplegia, Type 2 diabetes, Unsteady gait, Surgery List: Tonsillectomy in childhood Family History List: No Family History Of premature coronary disease or Past Social History: Alcohol use: He reports he quit over 30 years ago Drug use: Denies Tobacco: Quit over 30 years He is , lives at home with his . They have 1 grown son who lives in [facility]. He was in the [employer], worked in the [employer] room and then worked for many years for the [employer] and [employer]. Allergy List GARLIC OIL, medication Active Home Meds Losartan Potassium 50MG Oral Tablet, 50 MILLIGRAMS, ORAL, DAILY Omeprazole 20MG Oral Capsule, Delayed Release, 20 MILLIGRAMS, ORAL, DAILY, Existing Prescription Dulcolax 100MG Oral Capsule, Liquid Filled, 100 MILLIGRAMS, ORAL, TWICE A DAY, Existing Prescription Aspir 81 81MG Oral Tablet, Enteric Coated, 81 MILLIGRAMS, ORAL, DAILY, Existing Prescription Medication Reconciliation Source Patient Family PCP List Home List Pharmacy [facility] or Facility list Review of Systems Constitutional: (- ) fever (-) weight changes Eyes: (-) blurry vision (-) eye pain ENT: (-) sore throat (-) ear pain (-) epistaxis Neck: (-) lymphadenopathy Respiratory: (-) SOB (-) cough Heart: (-) chest pain (-) palpitations Abdomen: (-) nausea (-) vomiting (-) diarrhea Genitourinary: (-) urinary frequency (-) urgency Extremities: (-) edema Skin: (-) rashes (-) lesions Neuro: (-) headache (-) dizziness. Physical Exam Date/Time BP (mm/Hg) Heart Rate Resp Temp (C) SPO2% O2 Device 07/02/2022 08:55 169/72 64 16 95 % Room Air 21% GENERAL: Older male who appears comfortable, no acute distress EYES: Pupils are equal, round and reactive to light. Sclerae are white without injection or icterus. HENT: Normocephalic, atraumatic. Mucus membranes moist. Epistaxis absent. NECK: Supple. No thyromegaly or adenopathy. CHEST/LUNGS: Clear to auscultation bilaterally. No rales, rhonchi or wheezes. HEART: Regular rate and rhythm. No murmurs, rubs or gallop. ABDOMEN: Soft, non-distended, non-tender. Normal bowel sounds x4Q. EXTREMITIES: No cyanosis, edema. NEUROLOGIC: Muscle strength is graded 5/5 in the upper and lower extremities bilaterally. Sensation to pain, touch intact. Speech is fluent, there is no facial droop. Gait has not been tested by me PSYCHIATRIC: The patient is oriented x4. Mood and affect are appropriate. Pre-Admission Studies: Labs last 24 hours Test Results Units Reference Range Collected COLLECTION MODE: CLEAN CATCH 07/02/2022 08:35 Color YELLOW yellow 07/02/2022 08:35 Appearance CLEAR clear 07/02/2022 08:35 Glucose urine 250 A negative mg/dl 07/02/2022 08:35 Bilirubin NEGATIVE negative 07/02/2022 08:35 Ketones NEGATIVE negative mg/dl 07/02/2022 08:35 Spec gravity 1.010 1.003 - 1.030 07/02/2022 08:35 pH urine 7.5 A 5.0 - 7.0 07/02/2022 08:35 Protein NEGATIVE negative mg/dl 07/02/2022 08:35 Urobilinogen 0.2 07/02/2022 08:35 Nitrite. NEGATIVE negative 07/02/2022 08:35 Blood NEGATIVE negative 07/02/2022 08:35 Leukocytes. NEGATIVE negative 07/02/2022 08:35 MICROSCOPIC NOT INDICAT 07/02/2022 08:35 WBC 7.73 th/cmm L=5.00 H=10.00 07/02/2022 06:47 HEMOGLOBIN 15.1 gm/dL L=13.0 H=17.0 07/02/2022 06:47 HEMATOCRIT 44 L % L=45 H=52 07/02/2022 06:47 PLATELET COUNT 247 th/cmm L=150 H=450 07/02/2022 06:47 GLUCOSE 179 H mg/dL L=70 H=116 07/02/2022 06:47 BUN 20 mg/dL L=6 H=25 07/02/2022 06:47 CREATININE 1.03 mg/dL L=0.67 H=1.17 07/02/2022 06:47 SODIUM SERUM 138 mmol/L L=136 H=145 07/02/2022 06:47 POTASSIUM SERUM 4.2 mmol/L L=3.4 H=5.2 07/02/2022 06:47 CHLORIDE SERUM 101 mmol/L L=96 H=110 07/02/2022 06:47 CARBON DIOXIDE (CO2) 29 mmol/L L=22 H=34 07/02/2022 06:47 ANION GAP 8.1 mmol/L 07/02/2022 06:47 CALCIUM SERUM 9.1 mg/dL L=8.2 H=10.2 07/02/2022 06:47 BILIRUBIN TOTAL 0.8 mg/dL L=0.0 H=1.3 07/02/2022 06:47 ALK. PHOS. 215 H U/L L=46 H=116 07/02/2022 06:47 SGOT (AST) 28 U/L L=15 H=37 07/02/2022 06:47 SGPT (ALT) 83 H U/L L=12 H=78 07/02/2022 06:47 TOTAL PROTEIN 8.1 H gm/dL L=6.0 H=8.0 07/02/2022 06:47 ALBUMIN 3.1 L gm/dL L=3.4 H=5.0 07/02/2022 06:47 COVID NEGATIVE Normal: Negative 07/02/2022 06:47 INFLUENZA A DNA NEGATIVE Normal: Negative 07/02/2022 06:47 INFLUENZA B DNA NEGATIVE Normal: Negative 07/02/2022 06:47 RSV DNA NEGATIVE Normal: Negative 07/02/2022 06:47 TROPONIN HS 8.2 pg/mL L=0.0 H=60.4 07/02/2022 06:47 Specimen seq. RANDOM 07/02/2022 06:47 Radiology/EKG: Portable chest x-ray reveals no pleural effusion or pneumothorax, clear lungs. Problem List Unsteady gait Weakness Type 2 diabetes Functional quadriplegia Failure to thrive Plan Patient be placed on observation PT and OT evals Ambulate with assistance and with use of a walker Continue losartan for hypertension Continue glipizide for diabetes, monitor blood sugar Patient admitted as observation as I anticipate them to be here less than 2 midnights due to symptoms of Weakness, unsteady gait. Progress Notes [facility] 07/04/2022 15:23 07/04/2022, 15:23 SUBJECTIVE: 81 year-old male with history of previous stroke admitted with generalized weakness, left more so than the right, unsteady gait, frequent recent falls. He worked with PT yesterday and today, continues to be very weak and unsteady. He is still requiring assistance of 2 people to stand and ambulate. Allergy List GARLIC OIL, medication OBJECTIVE: Vital Signs Most Recent Date/Time BP (mm/Hg) Heart Rate Resp Temp (C) SPO2% O2 Device 07/04/2022 07:20 159/79 71 18 36.4 TEMPORAL SCANNING 95 % Room Air 21% GEN: NAD EYES: No scleral icteris NECK: supple, no LAD PULM: CTA b/l no w/r/r CV: RRR with no m/r/g appreciated ABD: soft, nontender, +BSx4 EXT: no edema NEURO: A&Ox3, Is able to move all extremities but the left upper left lower extremity are slightly weak and with mild dysmetria. Labs last 24 hours: No Labs Available ASSESSMENT: Problem List Failure to thrive Functional quadriplegia Type 2 diabetes Weakness Unsteady gait PLAN: Continue daily PT and OT Continue losartan for hypertension Continue daily aspirin for history of previous stroke [facility] 07/03/2022 12:06 07/03/2022, 12:04 SUBJECTIVE: 81 year-old male with history of previous stroke admitted with generalized weakness, left more so than the right, unsteady gait, frequent recent falls. He worked with PT yesterday and today, continues to be very weak and unsteady. See history and physical from 07/02/2022 for past medical history, family history, social history and review of systems. All reviewed and unchanged other than those listed above. Allergy List GARLIC OIL, medication OBJECTIVE: Vital Signs Most Recent Date/Time BP (mm/Hg) Heart Rate Resp Temp (C) SPO2% O2 Device 07/03/2022 08:32 143/67 65 20 36.6 TEMPORAL SCANNING 94 % Room Air 21% GEN: NAD EYES: No scleral icteris NECK: supple, no LAD PULM: CTA b/l no w/r/r CV: RRR with no m/r/g appreciated ABD: soft, nontender, +BSx4 EXT: no edema NEURO: A&Ox3, Is able to move all extremities but the left upper left lower extremity are slightly weak and with mild dysmetria. Labs last 24 hours: No Labs Available ASSESSMENT: Problem List Failure to thrive Functional quadriplegia Type 2 diabetes Weakness Unsteady gait PLAN: Admit to inpatient as he is not stable for discharge Continue daily PT and OT Continue losartan for hypertension Continue daily aspirin for history of previous stroke [facility] 07/06/2022 19:28 07/06/2022, 19:27 SUBJECTIVE: 81 year-old male with history of previous stroke admitted with generalized weakness, left more so than the right, unsteady gait, frequent recent falls. He has been working with PT daily, continues to be weak and unsteady. His strength and mobility are improving, however. Allergy List GARLIC OIL, medication OBJECTIVE: Vital Signs Most Recent Date/Time BP (mm/Hg) Heart Rate Resp Temp (C) SPO2% O2 Device 07/06/2022 16:03 145/81 95 18 36.8 TEMPORAL SCANNING 96 % Room Air 21% GEN: Elderly male appears comfortable at rest EYES: No scleral icteris NECK: supple, no LAD PULM: CTA b/l no w/r/r CV: RRR with no m/r/g appreciated ABD: soft, nontender, +BSx4 EXT: no edema NEURO: A&Ox3, Is able to move all extremities but the left upper left lower extremity are slightly weak and with mild dysmetria. Labs last 24 hours: No Labs Available ASSESSMENT: Problem List Failure to thrive Functional quadriplegia Type 2 diabetes Weakness Unsteady gait PLAN: Continue daily PT and OT Continue losartan for hypertension Continue daily aspirin for history of previous stroke [facility] 07/05/2022 15:10 07/05/2022, 15:09 SUBJECTIVE: 81 year-old male with history of previous stroke admitted with generalized weakness, left more so than the right, unsteady gait, frequent recent falls. He has been working with PT daily, continues to be very weak and unsteady. He thinks he is improving, however. Allergy List GARLIC OIL, medication OBJECTIVE: Vital Signs Most Recent Date/Time BP (mm/Hg) Heart Rate Resp Temp (C) SPO2% O2 Device 07/05/2022 07:25 156/80 63 20 36.3 TEMPORAL SCANNING 97 % Room Air 21% GEN: Elderly male appears comfortable at rest EYES: No scleral icteris NECK: supple, no LAD PULM: CTA b/l no w/r/r CV: RRR with no m/r/g appreciated ABD: soft, nontender, +BSx4 EXT: no edema NEURO: A&Ox3, Is able to move all extremities but the left upper left lower extremity are slightly weak and with mild dysmetria. Labs last 24 hours: No Labs Available ASSESSMENT: Problem List Failure to thrive Functional quadriplegia Type 2 diabetes Weakness Unsteady gait PLAN: Continue daily PT and OT Continue losartan for hypertension Continue daily aspirin for history of previous stroke
--- OUTSIDE RECORDS SUMMARY | 2023-10-04 18:21 | XMS_ITS ---
Author Name Unknown Address [address] [place] [address] [phone] Phone Organization Unknown Address [address] [place] [address] [phone] Phone Care Team Providers Care Sofa Cover Inspector Name Role Phone ÁNGEL HERBERT Registered Nurse Unavailable RIANNA PEREZ Registered Nurse Unavailable MARIAA Pal Attending Unavailable NANDA Haddad ER Unavailable TERRY Andersen Primary Unavailable UNLISTED PROVIDER - REQUESTED Xhandoff Un available Results URINALYSIS WITH MICRO AND RE FLEX CULTUR* - Collect Date/Time: 05/18/2022 06:53 [facility] ID: [id number] [address] [place], [place], [address] LOINC: 21639-4 Test Value Unit Reference Range Code Code System Flag COLLECTION MODE: CLEAN CATCH 57333-5 LOINC Color YELLOW yellow 5778-6 LOINC Appearance CLEAR clear 5767-9 LOINC Glucose urine NEGATIVE negative mg/dl 46890-8 LOINC Bilirubin NEGATIVE negative 5770-3 LOINC Ketones 15 negative mg/dl 2514-8 LOINC A Spec gravity <=1.005 1.003 - 1.030 5811-5 LOINC pH urine 6.5 5.0 - 7.0 2756-5 LOINC Protein NEGATIVE negative mg/dl 37660-3 LOINC Urobilinogen 0.2 <or= 1 EU/dl 32803-2 LOINC Nitrite. NEGATIVE negative 5802-4 LOINC Blood NEGATIVE negative 5794-3 LOINC Leukocytes. NEGATIVE negative WBCs. 0-5 0-5 / hpf 83094-2 LOINC RBCs 0-5 0-5 / hpf 67981-3 LOINC Epith cells 0-5 0-5 / hpf 25623-7 LOINC Cell types squamous Crystals none none Bacteria none none Mucus present none 8247-9 LOINC Casts 0-5 none /lpf 25003-2 LOINC Cast types hyaline Other GLUCOSE FINGER/HEEL CAPILLAR Y - Collect Date/Time: 05/18/2022 04:29 [facility] ID: [id number] [address] [place], [place], [id number] LOINC: 47333-0 Test Value Unit Reference Range Code Code System Flag GLUCOSE CAP 134 mg/dL L=70 H=116 H [facility] COVID FLU RSV GENEXPE RT - Collect Date/Time: 05/18/2022 04:25 [facility] ID: [id number] [address] [place] [address], [id number] LOINC: 17426-0 Test Value Unit Reference Range Code Code System Flag COVID NEGATIVE Normal: Negative 44716-1 LOINC INFLUENZA A DNA NEGATIVE Normal: Negative 19156-9 LOINC INFLUENZA B DNA NEGATIVE Normal: Negative 29985-2 LOINC RSV DNA NEGATIVE Normal: Negative 81246-4 LOINC COMPREHENSIVE METABOLIC PANE L (CMP) - Collect Date/Time: 05/18/2022 04:15 [facility] ID: [id number] [address] [place] [address], [address] LOINC: 58980-8 Test Value Unit Reference Range Code Code System Flag GLUCOSE 133 mg/dL L=70 H=116 2345-7 LOINC H BUN 27 mg/dL L=6 H=25 3094-0 LOINC H CREATININE 1.26 mg/dL L=0.67 H=1.17 2160-0 LOINC H SODIUM SERUM 135 mmol/L L=136 H=145 2951-2 LOINC L POTASSIUM SERUM 4.0 mmol/L L=3.4 H=5.2 2823-3 LOINC CHLORIDE SERUM 101 mmol/L L=96 H=110 2075-0 LOINC CARBON DIOXIDE (CO2) 29 mmol/L L=22 H=34 2028-9 LOINC ANION GAP 4.6 mmol/L 43060-2 LOINC CALCIUM SERUM 8.6 mg/dL L=8.2 H=10.2 82435-0 LOINC BILIRUBIN TOTAL 0.7 mg/dL L=0.0 H=1.3 1975-2 LOINC ALK. PHOS. 130 U/L L=46 H=116 6768-6 LOINC H SGOT (AST) 31 U/L L=15 H=37 1920-8 LOINC SGPT (ALT) 35 U/L L=12 H=78 1742-6 LOINC TOTAL PROTEIN 7.7 gm/dL L=6.0 H=8.0 2885-2 LOINC ALBUMIN 3.0 gm/dL L=3.4 H=5.0 1751-7 LOINC L AGE 81 years eGFR (non-Afr.Amer.) 55 mL/min 42922-8 LOINC eGFR (Afr-[place]guillan) 66 mL/min 60166-6 LOINC C REACTIVE PROTEIN HIGH SENS ITIVITY* - Collect Date/Time: 05/18/2022 04:15 [facility] ID: [id number] [address] [place] [address], [address] LOINC: 19800-7 Test Value Unit Reference Range Code Code System Flag CRP-HIGH SENS. 147.97 mg/L L=0.00 H=3.00 44649-7 LOINC H CRP-HIGH SENS 14.80 mg/dL L=0.00 H=0.30 53762-7 LOINC H SED RATE* - Collect Date/[place] e: 05/18/2022 04:15 [facility] ID: [id number] [address] [place] [address], [address] LOINC: 4537-7 Test Value Unit Reference Range Code Code System Flag SED. RATE 72 mm/hr L=0 H=20 4537-7 LOINC H CBC W/ DIFFERENTIAL* - Colle ct Date/Time: 05/18/2022 04:15 [facility] ID: [id number] [address] [place] [address], [address] LOINC: 52425-5 Test Value Unit Reference Range Code Code System Flag WBC 8.07 th/cmm L=5.00 H=10.00 6690-2 LOINC NEUT % 64.6 % L=40.0 H=80.0 LYMPH % 18.7 % L=10.0 H=50.0 MONO % 13.8 % L=2.0 H=12.0 51794-0 LOINC H EOS % 1.9 % L=0.0 H=8.0 BASO % 0.6 % L=0.0 H=3.0 IG % 0.4 % L=0.0 H=1.1 2514-8 LOINC NRBC % 0.0 % L=0.0 H=0.0 48946-6 LOINC NEUT abs count 5.2 th/cmm L=1.6 H=8.4 751-8 LOINC LYMPH abs count 1.5 th/cmm L=1.5 H=4.0 731-0 LOINC MONO abs count 1.1 th/cmm L=0.2 H=1.0 742-7 LOINC H EOS abs count 0.2 th/cmm L=0.0 H=0.5 711-2 LOINC BASO abs count 0.1 th/cmm L=0.0 H=0.2 704-7 LOINC IG abs count 0.0 th/cmm L=0.0 H=0.1 19726-8 LOINC NRBC abs count 0.0 mil/cmm L=0.0 H=0.0 33902-7 LOINC RBC 4.25 mil/cmm L=4.30 H=6.20 789-8 LOINC L HEMOGLOBIN 14.3 gm/dL L=13.0 H=17.0 718-7 LOINC HEMATOCRIT 42 % L=45 H=52 4544-3 LOINC L MCV 98 fL L=82 H=92 787-2 LOINC H MCH 33.6 pg L=27.0 H=31.0 785-6 LOINC H MCHC 34.4 % L=32.0 H=36.0 786-4 LOINC RDW-SD 45.0 fL L=39.0 H=49.0 788-0 LOINC PLATELET COUNT 277 th/cmm L=150 H=450 777-3 LOINC TROPONIN HIGH SENSITIVITY* - Collect Date/Time: 05/18/2022 04:15 [facility] ID: [id number] [address] [place] [address], [address] LOINC: 73699-3 Test Value Unit Reference Range Code Code System Flag TROPONIN HS 8.7 pg/mL L=0.0 H=60.4 Specimen seq. ADM. XR CHEST PORTABLE OR 1V - Co mpleted: 05/18/2022 04:37 LOINC: [facility] [place], [place] [address] PACS LEAD PRESS OPERATOR REPORT Patient Name: NATY BONILLA MRN: Sex: : Age: [id number] M [id number] Account: Accession: Admit: StayType: [id number] 05/18/2022 E/R Ordered: Order ID: Submitted: Ordering Provider: 05/18/2022 04:27 [id number] HETAL TOMLINSON Completed: Technologist: Resulted: 05/18/2022 04:37 CLB 05/18/2022 07:57 Study Description: XR CHEST PORTABLE OR 1V Study Reason: Cough TECHNIQUE: 2D digital imaging was performed. COMPARISON: Prior chest x-ray 07/25/2013 FINDINGS: Single AP view Heart size is normal. The mediastinum is not widened. There is mild elevation of the right hemidiaphragm. Lungs are clear. No infiltrates nor obvious pleural effusions. IMPRESSION: No acute pulmonary findings on this single AP portable view of the chest. There is some elevation of the right hemidiaphragm which was not present in 2014. Report Digitally Signed by Fernando Mejias on 05/18/2022 07:57 AM EST Social History Type Status Start Date End Date Code Code Syst em Smoking History Former smoker 04/05/19545466 8975023 SNOMED CT Sex Male Vital Signs Vital Sign Value Unit [place] Value [place] Unit Date/Time Recent/Initial? Code Code System Body Mass Index 24.80 kg/m2 05/18/2022 04:28 Initial 06550 -5 LOINC Systolic Blood Pressure 150 mm[Hg] 05/18/2022 07:00 Most Recent 8480- 6 LOINC Diastolic Blood Pressure 76 mm[Hg] 05/18/2022 07:00 Most Recent 8462- 4 LOINC Systolic Blood Pressure 156 mm[Hg] 05/18/2022 04:28 Initial 8480- 6 LOINC Diastolic Blood Pressure 88 mm[Hg] 05/18/2022 04:28 Initial 8462- 4 LOINC Body Surface Area 1.68 m2 05/18/2022 04:28 Initial 3140- 1 LOINC Height 160.020 0 cm 63.00 in 05/18/2022 04:28 Initial 8302- 2 LOINC O2 Saturation 91 % 2022 07:00 Most Recent 61562 -5 LOINC O2 Saturation 95 % 2022 04:28 Initial 96740 -5 LOINC Inhaled Oxygen Flow Rate 1.00 L/min 05/18/2022 05:14 Initial 3151- 8 LOINC Pulse 81.0 /min 05/18/2022 07:00 Most Recent 8867- 4 LOINC Pulse 87.0 /min 05/18/2022 04:28 Initial 8867- 4 LOINC Respiration 18 /min 05/18/19 06:37 Most Recent 9279- 1 LOINC Respiration 18 /min 05/18/19 04:28 Initial 9279- 1 LOINC Temperature 36.9 Kristina 98.4 F 05/18/19 23 05:27 Most Recent 8310- 5 LOINC Temperature 36.3 Kristina 97.3 F 05/18/19 04:28 Initial 8310- 5 LOINC Weight 63.50 kg 140.00 lbs 05/18/2022 04:28 Initial 99506 -7 [facility] Medications Medication Start Date End Date Route [...] Tablet 04/28/2021 07/02/2022 ORAL DAILY 25 MILLIGRAMS 863119 RxNorm TAKE 25 MILLIGRAMS ORAL DAILY Omeprazole 20MG Oral Capsule, Delayed Release 04/28/2021 Unknown ORAL DAILY 20 MILLIGRAMS 381527 RxNorm TAKE 20 MILLIGRAMS ORAL DAILY glipiZIDE 2.5MG Oral Tablet, Extended Release 04/28/2021 07/02/2022 ORAL DAILY 2.5 MILLIGRAMS 598160 RxNorm TAKE 2.5 MILLIGRAMS ORAL DAILY Assessment You had the following problems: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 Discharge Instructions Should you have any questions prior to discharge, please contact a member of your healthcare team. If you have left the hospital and have any questions, please contact your primary care physician. 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 26192362 SN OMED-CT FUNCTIONAL QUADRIPLEGIA active 480390 989256399 SNOMED-CT TYPE 2 DIABETES active 15719477 SNOM ED-CT WEAKNESS active 43905570 SNOMED-CT UNSTEADY GAIT active 68610051 SNOMED -CT JANAE - ACUTE KIDNEY INJURY 07/02/2022 resolved 70159938 SNOMED-CT DIABETES 04/23/2021 resolved 26189426 SNOMED-CT Allergies and Adverse Reactions Allergy Substance Reaction Severity Start Date Concern Status Code Code Syste m GARLIC OIL Hives (SNOMED-CT: 673967928) Active 4824528 RxNorm Plan of Treatment No Data Found Encounters Encounter Diagnosis Start Date Code Code Sys tem Dehydration 05/18/2022 SNOMED-CT Personal Care Team Section Performer Name Performer Role Active Date Inactive Da te
--- OUTSIDE RECORDS SUMMARY | 2023-10-04 18:21 | XMS_ITS ---
Author Name Unknown Address [address] [place] [address] [phone] Phone Organization Unknown Address [address] [place] [address] [phone] Phone Care Team Providers Care Coffee Plantation Worker Name Role Phone MAURICIO Quintanilla Attending Unavailable TERRY Andersen Primary Unavailable Results URINALYSIS WITH REFLEX CULT IF POSITIVE* - Collect Date/Time: 05/20/2022 12:05 [facility] ID: [id number] [address] [place], [place], [address] LOINC: 55697-6 Test Value Unit Reference Range Code Code System Flag COLLECTION MODE: NOT STATED 80658-0 LOINC Color YELLOW yellow 5778-6 LOINC Appearance CLEAR clear 5767-9 LOINC Glucose urine >=1000 negative mg/dl 90340-4 LOINC A Bilirubin NEGATIVE negative 5770-3 LOINC Ketones TRACE negative mg/dl 2514-8 LOINC A Spec gravity 1.015 1.003 - 1.030 5811-5 LOINC pH urine 7.5 5.0 - 7.0 2756-5 LOINC A Protein NEGATIVE negative mg/dl 91915-8 LOINC Urobilinogen 0.2 <or= 1 EU/dl 96120-0 LOINC Nitrite. NEGATIVE negative 5802-4 LOINC Blood NEGATIVE negative 5794-3 LOINC Leukocytes. NEGATIVE negative MICROSCOPIC NOT INDICAT Social History Type Status Start Date End Date Code Code Syst em Smoking History Former smoker 04/05/19548772 0291306 SNOMED CT Sex Male Medications Medication Start [...] Tablet 04/28/2021 07/02/2022 ORAL DAILY 25 MILLIGRAMS 398266 RxNorm TAKE 25 MILLIGRAMS ORAL DAILY Omeprazole 20MG Oral Capsule, Delayed Release 04/28/2021 Unknown ORAL DAILY 20 MILLIGRAMS 350730 RxNorm TAKE 20 MILLIGRAMS ORAL DAILY glipiZIDE 2.5MG Oral Tablet, Extended Release 04/28/2021 07/02/2022 ORAL DAILY 2.5 MILLIGRAMS 123024 RxNorm TAKE 2.5 MILLIGRAMS ORAL DAILY Assessment You had the following problems: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 If you have left the hospital and have any questions, please contact your primary care physician. 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 79873160 SN OMED-CT FUNCTIONAL QUADRIPLEGIA active 233949 072367814 SNOMED-CT TYPE 2 DIABETES active 23571703 SNOM ED-CT WEAKNESS active 16847274 SNOMED-CT UNSTEADY GAIT active 97243127 SNOMED -CT JANAE - ACUTE KIDNEY INJURY 07/02/2022 resolved 73026477 SNOMED-CT DIABETES 04/23/2021 resolved 39458203 SNOMED-CT Allergies and Adverse Reactions Allergy Substance Reaction Severity Start Date Concern Status Code Code Syste m GARLIC OIL Hives (SNOMED-CT: 783607112) Active 5777057 RxNorm Plan of Treatment No Data Found Encounters Encounter Diagnosis Start Date Code Code Sys tem Dysuria 05/20/2022 SNOMED-CT Personal Care Team Section Performer Name Performer Role Active Date Inactive Da emi
--- OUTSIDE RECORDS SUMMARY | 2023-10-04 18:21 | XMS_ITS ---
Author Name Unknown Address [address] [place] [address] [phone] Phone Organization Unknown Address [address] [place] [address] [phone] Phone Care Team Providers Care Construction Flagger Name Role Phone VANDANA Quintanilla Attending Unavailable TERRY Andersen Primary Unavailable Social History Type Status Start Date End Date Code Code Syst em Smoking History Former smoker 04/05/19541149 1972420 SNOMED CT Sex Male Medications Medication Start [...] Tablet 04/28/2021 07/02/2022 ORAL DAILY 25 MILLIGRAMS 713257 RxNorm TAKE 25 MILLIGRAMS ORAL DAILY Omeprazole 20MG Oral Capsule, Delayed Release 04/28/2021 Unknown ORAL DAILY 20 MILLIGRAMS 777115 RxNorm TAKE 20 MILLIGRAMS ORAL DAILY glipiZIDE 2.5MG Oral Tablet, Extended Release 04/28/2021 07/02/2022 ORAL DAILY 2.5 MILLIGRAMS 028521 RxNorm TAKE 2.5 MILLIGRAMS ORAL DAILY Assessment You had the following problems: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 If you have left the hospital and have any questions, please contact your primary care physician. 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 13052366 SN OMED-CT FUNCTIONAL QUADRIPLEGIA active 616948 669237400 SNOMED-CT TYPE 2 DIABETES active 02612015 SNOM ED-CT WEAKNESS active 95913076 SNOMED-CT UNSTEADY GAIT active 78388417 SNOMED -CT JANAE - ACUTE KIDNEY INJURY 07/02/2022 resolved 66207289 SNOMED-CT DIABETES 04/23/2021 resolved 03379744 SNOMED-CT Allergies and Adverse Reactions Allergy Substance Reaction Severity Start Date Concern Status Code Code Syste m GARLIC OIL Hives (SNOMED-CT: 679341804) Active 6917991 RxNorm Plan of Treatment No Data Found Encounters Encounter Diagnosis Start Date Code Code Sys tem Weakness 07/02/2022 SNOMED-CT Personal Care Team Section Performer Name Performer Role Active Date Inactive Da emi
--- OUTSIDE RECORDS SUMMARY | 2023-10-04 18:22 | XMS_ITS ---
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 If you have left the hospital and have any questions, please contact your primary care physician. 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 01902329 SN OMED-CT FUNCTIONAL QUADRIPLEGIA active 425632 207043468 SNOMED-CT TYPE 2 DIABETES active 15675344 SNOM ED-CT WEAKNESS active 54817043 SNOMED-CT UNSTEADY GAIT active 13047055 SNOMED -CT JANAE - ACUTE KIDNEY INJURY 07/02/2022 resolved 42327995 SNOMED-CT DIABETES 04/23/2021 resolved 23952547 SNOMED-CT Allergies and Adverse Reactions Allergy Substance Reaction Severity Start Date Concern Status Code Code Syste m GARLIC OIL Hives (SNOMED-CT: 315171666) Active 9508125 RxNorm Plan of Treatment No Data Found Encounters Encounter Diagnosis Start Date Code Code Sys tem Adult failure to thrive 07/03/2022 [facility] Personal Care Team Section Performer Name Performer Role Active Date Inactive Da te
== END 2023-10-04 18:18 | disposition home or self-care (01) ==
LOC: NCHCN 18:17
PROVIDERS: PCP Family Medicine; Visit Provider Family Medicine
DX: E11.9 Type 2 diabetes mellitus without complications (principal)
CPT/HCPCS: 80048; 83036

== ENCOUNTER 2023-11-05 18:30 | Outpatient (REF) | payer MEDICARE, BC, SELFPAY ==
[2023-11-05 15:19] LABS: Anion Gap 9.1 mmol/L (3-11); BUN 15 mg/dL (7-18); CO2 26.9 mmol/L (21.0-32.0); CREATININE 1.3 mg/dL (0.70-1.30); Calcium 8.9 mg/dL (8.5-10.1); Chloride 94 mmol/L (98-107); Estimated GFR 54.51 (mL/min/1.73m2); Glucose 226 mg/dL (74-106); Potassium 4.3 mmol/L (3.5-5.1); Sodium 130 mmol/L (136-145)
--- OUTSIDE RECORDS SUMMARY | 2023-11-05 18:40 | XMS_ITS ---
Author Organization Unknown Address [address] [place] [address] [phone] Phone Care Team Providers Care Channel Sales Director Name Role Phone JUSTICE GABRIEL Registered Nurse Unavailable DADA LEROY Registered Nurse Unavailable ROYA RICCI Registered Nurse Unavailable Unavailable Xwatchlist Unavailable ESTEPHANIE Tucker Attending Unavailable LUZ ELENA Reyna [facility] Unavailable TERRY Andersen Primary Unavailable CHRIS Arias Secondary Unavailable UNLISTED PROVIDER - REQUESTED Xhandoff Un available Results GLUCOSE FINGER/HEEL CAPILLAR Y - Collect Date/Time: 04/27/2021 08:24 [facility] ID: [id number] [address] [place] [address], [phone] LOINC: 02208-9 Test Value Unit Reference Range Code Code System Flag GLUCOSE CAP 108 mg/dL L=70 H=116 GLUCOSE FINGER/HEEL CAPILLAR Y - Collect Date/Time: 04/26/2021 08:15 [facility] ID: [id number] [address] [place] [address], [phone] LOINC: 27554-3 Test Value Unit Reference Range Code Code System Flag GLUCOSE CAP 92 mg/dL L=70 H=116 GLUCOSE FINGER/HEEL CAPILLAR Y - Collect Date/Time: 04/25/2021 16:56 [facility] ID: [id number] [address] [place] [address], [phone] LOINC: 17295-5 Test Value Unit Reference Range Code Code System Flag GLUCOSE CAP 97 mg/dL L=70 H=116 GLUCOSE FINGER/HEEL CAPILLAR Y - Collect Date/Time: 04/25/2021 11:31 [facility] ID: [id number] [address] [place] [address], [phone] LOINC: 94749-4 Test Value Unit Reference Range Code Code System Flag GLUCOSE CAP 151 mg/dL L=70 H=116 H GLUCOSE FINGER/HEEL CAPILLAR Y - Collect Date/Time: 04/24/2021 22:09 [facility] ID: [id number] [address] [place] [address], [id number] LOINC: 50948-0 Test Value Unit Reference Range Code Code System Flag GLUCOSE CAP 88 mg/dL L=70 H=116 GLUCOSE FINGER/HEEL CAPILLAR Y - Collect Date/Time: 04/24/2021 08:34 [facility] ID: [id number] [address] [place] [address], [phone] LOINC: 63872-7 Test Value Unit Reference Range Code Code System Flag GLUCOSE CAP 87 mg/dL L=70 H=116 CBC W/ DIFFERENTIAL* - Colle ct Date/Time: 04/24/2021 06:50 [facility] ID: [id number] [address] [place] [address], [address] LOINC: 54852-1 Test Value Unit Reference Range Code Code System Flag WBC 7.17 th/cmm L=5.00 H=10.00 6690-2 LOINC NEUT % 63.5 % L=40.0 H=80.0 LYMPH % 20.6 % L=10.0 H=50.0 MONO % 14.1 % L=2.0 H=12.0 64189-9 LOINC H EOS % 1.0 % L=0.0 H=8.0 BASO % 0.7 % L=0.0 H=3.0 IG % 0.1 % L=0.0 H=1.1 0514-8 LOINC NRBC % 0.0 % L=0.0 H=0.0 01690-6 LOINC NEUT abs count 4.6 th/cmm L=1.6 H=8.4 751-8 LOINC LYMPH abs count 1.5 th/cmm L=1.5 H=4.0 731-0 LOINC MONO abs count 1.0 th/cmm L=0.2 H=1.0 742-7 LOINC EOS abs count 0.1 th/cmm L=0.0 H=0.5 711-2 LOINC BASO abs count 0.1 th/cmm L=0.0 H=0.2 704-7 LOINC IG abs count 0.0 th/cmm L=0.0 H=0.1 73148-6 LOINC NRBC abs count 0.0 mil/cmm L=0.0 H=0.0 66268-8 LOINC RBC 4.20 mil/cmm L=4.30 H=6.20 789-8 LOINC L HEMOGLOBIN 14.2 gm/dL L=13.0 H=17.0 718-7 LOINC HEMATOCRIT 42 % L=45 H=52 4544-3 LOINC L MCV 101 fL L=82 H=92 787-2 LOINC H MCH 33.8 pg L=27.0 H=31.0 785-6 LOINC H MCHC 33.6 % L=32.0 H=36.0 786-4 LOINC RDW-SD 49.3 fL L=39.0 H=49.0 788-0 LOINC H PLATELET COUNT 196 th/cmm L=150 H=450 777-3 LOINC BASIC METABOLIC PANEL (BMP) - Collect Date/Time: 04/24/2021 06:50 [facility] ID: [id number] [address] [place], [place], [address] LOINC: 79560-7 Test Value Unit Reference Range Code Code System Flag GLUCOSE 97 mg/dL L=70 H=116 2345-7 LOINC BUN 11 mg/dL L=6 H=25 3094-0 LOINC CREATININE 1.08 mg/dL L=0.67 H=1.17 2160-0 LOINC SODIUM SERUM 144 mmol/L L=136 H=145 2951-2 LOINC POTASSIUM SERUM 4.2 mmol/L L=3.4 H=5.2 2823-3 [facility] CHLORIDE SER[facility] 108 mmol/L L=96 H=110 2075-0 LOINC CARBON DIOXIDE (CO2) 31 mmol/L L=22 H=34 2028-9 LOINC ANION GAP 5.3 mmol/L 04379-1 [facility] CALCIUM SERUM 8.5 mg/dL L=8.2 H=10.2 98233-8 LOINC AGE 80 years eGFR (non-Afr.Amer.) 66 mL/min 18032-1 [facility] eGFR (Afr-[place]oz[place]ican) 79 mL/min 32246-6 [facility] COVID FLU RSV GENEXPE RT - Collect Date/Time: 04/23/2021 23:06 [facility] ID: [id number] [address] [place], [place], [phone] LOINC: 33840-5 Test Value Unit Reference Range Code Code System Flag COVID NEGATIVE Normal: Negative 30359-3 LOINC INFLUENZA A DNA NEGATIVE Normal: Negative 02098-8 LOINC INFLUENZA B DNA NEGATIVE Normal: Negative 62372-9 LOINC RSV DNA NEGATIVE Normal: Negative 45269-3 LOINC URINALYSIS WITH MICRO AND RE FLEX CULTUR* - Collect Date/Time: 04/23/2021 22:03 [facility] ID: [id number] [address] [place] [address], [address] LOINC: 12925-2 Test Value Unit Reference Range Code Code System Flag COLLECTION MODE: CLEAN CATCH Color YELLOW yellow 5778-6 LOINC Appearance CLEAR clear 5767-9 LOINC Glucose urine 500 negative mg/dl 72343-0 LOINC A Bilirubin NEGATIVE negative 5770-3 LOINC Ketones NEGATIVE negative mg/dl 2514-8 LOINC Spec gravity <=1.005 1.003 - 1.030 5811-5 LOINC pH urine 6.0 5.0 - 7.0 2756-5 LOINC Protein NEGATIVE negative mg/dl 19020-4 LOINC Urobilinogen 0.2 <or= 1 EU/dl 86246-6 LOINC Nitrite. NEGATIVE negative 5802-4 LOINC Blood NEGATIVE negative 5794-3 LOINC Leukocytes. NEGATIVE negative WBCs. 0-5 0-5 / hpf 27443-3 LOINC RBCs 0-5 0-5 / hpf 18384-7 LOINC Epith cells 0-5 0-5 / hpf 39593-0 LOINC Cell types squamous Crystals none none Bacteria minimal none Mucus none none Casts none none /lpf Other ORDER VENOUS BLOOD GAS* - Co llect Date/Time: 04/23/2021 22:00 [facility] ID: [id number] [address] [place], [place], [id number] LOINC: Test Value Unit Reference Range Code Code System Flag Specimen type: VENOUS pH (venous) 7.41 L=7.31 H=7.41 2746-6 LOINC 2 (venous) 45 PO2 (venous) L=30 H=50 HCO3 28 mmol/L L=22 H=26 1960-4 LOINC H TCO2 (venous) 30 mmol/L L=22 H=28 3533-7 LOINC H BASE EXCESS (venous) 4 mmol/L L=-2 H=3 3097-3 LOINC H Assist vent. Resp. Rate /min. Temp. CBC W/ DIFFERENTIAL* - Colle ct Date/Time: 04/23/2021 20:38 [facility] ID: [id number] [address] [place] [address], [address] LOINC: 74361-4 Test Value Unit Reference Range Code Code System Flag WBC 11.28 th/cmm L=5.00 H=10.00 6690-2 LOINC H NEUT % 77.7 % L=40.0 H=80.0 LYMPH % 10.8 % L=10.0 H=50.0 MONO % 10.7 % L=2.0 H=12.0 28946-5 LOINC EOS % 0.1 % L=0.0 H=8.0 BASO % 0.4 % L=0.0 H=3.0 IG % 0.3 % L=0.0 H=1.1 4244-8 LOINC NRBC % 0.0 % L=0.0 H=0.0 74832-0 LOINC NEUT abs count 8.8 th/cmm L=1.6 H=8.4 751-8 LOINC H LYMPH abs count 1.2 th/cmm L=1.5 H=4.0 731-0 LOINC L MONO abs count 1.2 th/cmm L=0.2 H=1.0 742-7 LOINC H EOS abs count 0.0 th/cmm L=0.0 H=0.5 711-2 LOINC BASO abs count 0.1 th/cmm L=0.0 H=0.2 704-7 LOINC IG abs count 0.0 th/cmm L=0.0 H=0.1 62922-5 LOINC NRBC abs count 0.0 mil/cmm L=0.0 H=0.0 24737-1 LOINC RBC 4.33 mil/cmm L=4.30 H=6.20 789-8 LOINC HEMOGLOBIN 14.8 gm/dL L=13.0 H=17.0 718-7 LOINC HEMATOCRIT 42 % L=45 H=52 4544-3 LOINC L MCV 98 fL L=82 H=92 787-2 LOINC H MCH 34.2 pg L=27.0 H=31.0 785-6 LOINC H MCHC 35.0 % L=32.0 H=36.0 786-4 LOINC RDW-SD 46.4 fL L=39.0 H=49.0 788-0 LOINC PLATELET COUNT 230 th/cmm L=150 H=450 777-3 LOINC TROPONIN-I* - Collect Date/T rochelle: 04/23/2021 19:20 [facility] ID: [id number] [address] [place], [place], [address] LOINC: 97345-3 Test Value Unit Reference Range Code Code System Flag TROPONIN-I < 0.017 ng/mL L=0.000 H=0.060 89371-7 LOINC Specimen seq. Random TROPONIN HIGH SENSITIVITY* - Collect Date/Time: 04/23/2021 19:20 [facility] ID: [id number] [address] [place] [address], [address] LOINC: 10938-9 Test Value Unit Reference Range Code Code System Flag TROPONIN HS 11.6 pg/mL L=0.0 H=60.4 Specimen seq. ADM. KETONES QUAL - Collect Date/ Time: 04/23/2021 19:20 [facility] ID: [id number] [address] [place] [address], [address] LOINC: 5567-3 Test Value Unit Reference Range Code Code System Flag ACETONE NEGATIVE 5567-3 LOINC COMPREHENSIVE METABOLIC PANE L (CMP) - Collect Date/Time: 04/23/2021 19:20 [facility] ID: [id number] [address] [place] [address], [address] LOINC: 49783-4 Test Value Unit Reference Range Code Code System Flag GLUCOSE 306 mg/dL L=70 H=116 2345-7 LOINC H BUN 18 mg/dL L=6 H=25 3094-0 LOINC CREATININE 1.33 mg/dL L=0.67 H=1.17 2160-0 LOINC H SODIUM SERUM 136 mmol/L L=136 H=145 2951-2 LOINC POTASSIUM SERUM 4.2 mmol/L L=3.4 H=5.2 2823-3 LOINC CHLORIDE SERUM 100 mmol/L L=96 H=110 2075-0 LOINC CARBON DIOXIDE (CO2) 24 mmol/L L=22 H=34 2028-9 LOINC ANION GAP 12.4 mmol/L 55359-0 LOINC CALCIUM SERUM 9.0 mg/dL L=8.2 H=10.2 09014-9 LOINC BILIRUBIN TOTAL 0.7 mg/dL L=0.0 H=1.3 1975-2 LOINC ALK. PHOS. 130 U/L L=46 H=116 6768-6 LOINC H SGOT (AST) 22 U/L L=15 H=37 1920-8 LOINC SGPT (ALT) 33 U/L L=12 H=78 1742-6 LOINC TOTAL PROTEIN 7.6 gm/dL L=6.0 H=8.0 2885-2 LOINC ALBUMIN 3.5 gm/dL L=3.4 H=5.0 1751-7 LOINC AGE 80 years eGFR (non-Afr.Amer.) 52 mL/min 67975-8 LOINC eGFR (Afr-Mozambican) 62 mL/min 47006-5 LOINC THYROID TESTING CASCADE* - C ollect Date/Time: 04/23/2021 19:20 [facility] ID: [id number] [address] [place], [place], [address] LOINC: 3016-3 Test Value Unit Reference Range Code Code System Flag TSH. 0.515 uIU/mL L=0.360 H=3.740 3014-[address] [facility] CT HEAD BRAIN WO DYE - Compl eted: 04/23/2021 23:38 LOINC: Radiation optimization: All CT scans at this facility use at least one of these dose optimization techniques: automated exposure control; mA and/or kV adjustment per patient size (includes targeted exams where dose is matched to clinical indication); or iterative reconstruction. NONCONTRAST HEAD CT:Comparison is made with July 17. 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 Calcifications are again noted in the left parietal region and left cerebellum. There is mild atrophy and underlying white matter changes. 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 No acute infarct, hemorrhage or mass is seen. There is no evidence of skull fracture. IMPRESSION:Old infarcts. No acute abnormality. Dictated by: CEO PORTILLO SPEAR MD Transcribed by: DELMAR 04/24/2112:12 D April 8:45:18 AM [id number] Electronically Reviewed and Signed By: PORTILLO SPEAR MD 04/24/21 12:25 Copy for: 185 HEALTH INFORMATION MGMT Social History Type Status Start Date End Date Code Code Syst em Smoking History Former smoker 04/05/19540398 6898367 SNOMED CT Sex Male Vital Signs Vital Sign Value Unit [place] Value [place] Unit Date/Time Recent/Initial? Code Code System Body Mass Index 25.87 kg/m2 04/25/2021 12:44 Most Recent 55679 -5 LOINC Body Mass Index 26.39 kg/m2 04/23/2021 19:43 Initial 17228 -5 LOINC Systolic Blood Pressure 158 mm[Hg] 04/28/2021 07:32 Most Recent 8480- 6 LOINC Diastolic Blood Pressure 96 mm[Hg] 04/28/2021 07:32 Most Recent 8462- 4 LOINC Systolic Blood Pressure 139 mm[Hg] 04/23/2021 19:43 Initial 8480- 6 LOINC Diastolic Blood Pressure 73 mm[Hg] 04/23/2021 19:43 Initial 8462- 4 LOINC Body Surface Area 1.72 m2 04/25/2021 12:44 Most Recent 3140- 1 LOINC Body Surface Area 1.73 m2 04/23/2021 19:43 Initial 3140- 1 LOINC Height 160.020 0 cm 63.00 in 04/25/2021 12:44 Most Recent 8302- 2 LOINC Height 160.020 0 cm 63.00 in 04/23/2021 19:43 Initial 8302- 2 LOINC O2 Saturation 95 % 2021 07:32 Most Recent 32880 -5 LOINC O2 Saturation 96 % 2021 19:43 Initial 18595 -5 LOINC Fraction of Inspired Oxygen 21 % 04/28/2021 02:49 Most Recent 3150- 0 LOINC Fraction of Inspired Oxygen 21 % 04/26/2021 08:15 Initial 3150- 0 LOINC Pulse 64.0 /min 04/28/2021 07:32 Most Recent 8867- 4 LOINC Pulse 98.0 /min 04/23/2021 19:43 Initial 8867- 4 LOINC Respiration 18 /min 04/28/19 07:32 Most Recent 9279- 1 LOINC Respiration 24 /min 04/23/19 19:43 Initial 9279- 1 LOINC Temperature 36.4 Kristina 97.5 F 04/28/19 07:32 Most Recent 8310- 5 LOINC Temperature 37.3 Kristina 99.1 F 04/23/19 19:43 Initial 8310- 5 LOINC Weight 66.24 kg 146.03 lbs 04/25/2021 12:44 Most Recent 89943 -7 [facility] Weight 67.59 kg 149.00 lbs 04/23/2021 19:43 Initial 07241 -7 [facility] Medications Medication Start Date End Date Route [...] Tablet 04/28/2021 07/02/2022 ORAL DAILY 25 MILLIGRAMS 274840 RxNorm TAKE 25 MILLIGRAMS ORAL DAILY Omeprazole 20MG Oral Capsule, Delayed Release 04/28/2021 Unknown ORAL DAILY 20 MILLIGRAMS 149795 RxNorm TAKE 20 MILLIGRAMS ORAL DAILY glipiZIDE 2.5MG Oral Tablet, Extended Release 04/28/2021 07/02/2022 ORAL DAILY 2.5 MILLIGRAMS 728958 RxNorm TAKE 2.5 MILLIGRAMS ORAL DAILY Assessment You had the following problems: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 Discharge Instructions Should you have any questions prior to discharge, please contact a member of your healthcare team. If you have left the hospital and have any questions, please contact your primary care physician. 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 01318778 SN OMED-CT FUNCTIONAL QUADRIPLEGIA active 514239 313200405 SNOMED-CT TYPE 2 DIABETES active 39782393 SNOM ED-CT WEAKNESS active 56440701 SNOMED-CT UNSTEADY GAIT active 87059101 SNOMED -CT JANAE - ACUTE KIDNEY INJURY 07/02/2022 resolved 65983751 SNOMED-CT DIABETES 04/23/2021 resolved 81525856 SNOMED-CT Allergies and Adverse Reactions Allergy Substance Reaction Severity Start Date Concern Status Code Code Syste m GARLIC OIL Hives (SNOMED-CT: 892956246) Active 7402657 RxNorm Plan of Treatment No Data Found Encounters Encounter Diagnosis Start Date Code Code Sys tem Acute kidney failure, unspecified 04/25/2021 SNOMED-CT Personal Care Team Section Performer Name Performer Role Active Date Inactive Da te History and Physical Notes Progress Notes
--- OUTSIDE RECORDS SUMMARY | 2023-11-05 18:40 | XMS_ITS ---
Author Organization Unknown Address [address] [place] [address] [phone] Phone Care Team Providers Care Compliance Administrator Name Role Phone ESTEPHANIE Tucker Attending Unavailable CHRIS Arias Secondary Unavailable Social History Type Status Start Date End Date Code Code Syst em Smoking History Former smoker 04/05/19542635 9622597 SNOMED CT Sex Male Medications Medication Start [...] Tablet 04/28/2021 07/02/2022 ORAL DAILY 25 MILLIGRAMS 816641 RxNorm TAKE 25 MILLIGRAMS ORAL DAILY Omeprazole 20MG Oral Capsule, Delayed Release 04/28/2021 Unknown ORAL DAILY 20 MILLIGRAMS 476853 RxNorm TAKE 20 MILLIGRAMS ORAL DAILY glipiZIDE 2.5MG Oral Tablet, Extended Release 04/28/2021 07/02/2022 ORAL DAILY 2.5 MILLIGRAMS 453980 RxNorm TAKE 2.5 MILLIGRAMS ORAL DAILY Assessment You had the following problems:FAILURE TO THRIVEFUNCTIONAL QUADRIPLEGIATYPE [facility] Should you have any questions prior to discharge, please contact a member of your healthcare team. If you have left the hospital and have any questions, please contact your primary care physician. 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 64169987 SN OMED-CT FUNCTIONAL QUADRIPLEGIA active 932400 239298516 SNOMED-CT TYPE 2 DIABETES active 32849566 SNOM ED-CT WEAKNESS active 10997802 SNOMED-CT UNSTEADY GAIT active 93312509 SNOMED -CT JANAE - ACUTE KIDNEY INJURY 07/02/2022 resolved 30160854 SNOMED-CT DIABETES 04/23/2021 resolved 22377880 SNOMED-CT Allergies and Adverse Reactions Allergy Substance Reaction Severity Start Date Concern Status Code Code Syste m GARLIC OIL Hives (SNOMED-CT: 558412269) Active 6456222 RxNorm Plan of Treatment No Data Found Encounters Encounter Diagnosis Start Date Code Code Sys tem Weakness 04/23/2021 SNOMED-CT Personal Care Team Section Performer Name Performer Role Active Date Inactive Da te
--- OUTSIDE RECORDS SUMMARY | 2023-11-05 18:41 | XMS_ITS ---
Author Organization Unknown Address [address] [place] [address] [phone] Phone Care Team Providers Care Nutrition Consultant Name Role Phone MAURICIO Quintanilla Attending Unavailable TERRY JOE Nathaly Primary Unavailable Results URINALYSIS WITH REFLEX CULT IF POSITIVE* - Collect Date/Time: 05/20/2022 12:05 [facility] ID: [id number] [address] [place], [place], [address] LOINC: 86311-3 Test Value Unit Reference Range Code Code System Flag COLLECTION MODE: NOT STATED 75121-7 LOINC Color YELLOW yellow 5778-6 LOINC Appearance CLEAR clear 5767-9 LOINC Glucose urine >=1000 negative mg/dl 08862-9 LOINC A Bilirubin NEGATIVE negative 5770-3 LOINC Ketones TRACE negative mg/dl 2514-8 LOINC A Spec gravity 1.015 1.003 - 1.030 5811-5 LOINC pH urine 7.5 5.0 - 7.0 2756-5 LOINC A Protein NEGATIVE negative mg/dl 37223-1 LOINC Urobilinogen 0.2 <or= 1 EU/dl 05197-9 LOINC Nitrite. NEGATIVE negative 5802-4 LOINC Blood NEGATIVE negative 5794-3 LOINC Leukocytes. NEGATIVE negative MICROSCOPIC NOT INDICAT Social History Type Status Start Date End Date Code Code Syst em Smoking History Former smoker 04/05/19546344 7617156 SNOMED CT Sex Male Medications Medication Start [...] Tablet 04/28/2021 07/02/2022 ORAL DAILY 25 MILLIGRAMS 327734 RxNorm TAKE 25 MILLIGRAMS ORAL DAILY Omeprazole 20MG Oral Capsule, Delayed Release 04/28/2021 Unknown ORAL DAILY 20 MILLIGRAMS 878096 RxNorm TAKE 20 MILLIGRAMS ORAL DAILY glipiZIDE 2.5MG Oral Tablet, Extended Release 04/28/2021 07/02/2022 ORAL DAILY 2.5 MILLIGRAMS 669608 RxNorm TAKE 2.5 MILLIGRAMS ORAL DAILY Assessment You had the following problems: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 If you have left the hospital and have any questions, please contact your primary care physician. 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 52467662 SN OMED-CT FUNCTIONAL QUADRIPLEGIA active 073533 247144791 SNOMED-CT TYPE 2 DIABETES active 65515996 SNOM ED-CT WEAKNESS active 42213621 SNOMED-CT UNSTEADY GAIT active 37108916 SNOMED -CT JANAE - ACUTE KIDNEY INJURY 07/02/2022 resolved 99601146 SNOMED-CT DIABETES 04/23/2021 resolved 82849008 SNOMED-CT Allergies and Adverse Reactions Allergy Substance Reaction Severity Start Date Concern Status Code Code Syste m GARLIC OIL Hives (SNOMED-CT: 726282562) Active 7861231 RxNorm Plan of Treatment No Data Found Encounters Encounter Diagnosis Start Date Code Code Sys tem Dysuria 05/20/2022 SNOMED-CT Personal Care Team Section Performer Name Performer Role Active Date Inactive Da te
--- OUTSIDE RECORDS SUMMARY | 2023-11-05 18:41 | XMS_ITS ---
Author Organization Unknown Address [address] [place] [address] [phone] Phone Care Team Providers Care Driver Supervisor Name Role Phone ÁNGEL HERBERT Registered Nurse Unavailable RIANNA PEREZ Registered Nurse Unavailable MARIAA Pal Attending Unavailable NANDA Haddad ER Unavailable TERRY MATTHEWSA Nathaly Primary Unavailable UNLISTED PROVIDER - REQUESTED Xhandoff Un available Results URINALYSIS WITH MICRO AND RE FLEX CULTUR* - Collect Date/Time: 05/18/2022 06:53 [facility] ID: [id number] [address] [place], [place], [address] LOINC: 91080-5 Test Value Unit Reference Range Code Code System Flag COLLECTION MODE: CLEAN CATCH 15490-5 LOINC Color YELLOW yellow 5778-6 LOINC Appearance CLEAR clear 5767-9 LOINC Glucose urine NEGATIVE negative mg/dl 61567-1 LOINC Bilirubin NEGATIVE negative 5770-3 LOINC Ketones 15 negative mg/dl 2514-8 LOINC A Spec gravity <=1.005 1.003 - 1.030 5811-5 LOINC pH urine 6.5 5.0 - 7.0 2756-5 LOINC Protein NEGATIVE negative mg/dl 79299-0 LOINC Urobilinogen 0.2 <or= 1 EU/dl 67135-4 LOINC Nitrite. NEGATIVE negative 5802-4 LOINC Blood NEGATIVE negative 5794-3 LOINC Leukocytes. NEGATIVE negative WBCs. 0-5 0-5 / hpf 48720-1 LOINC RBCs 0-5 0-5 / hpf 88800-0 LOINC Epith cells 0-5 0-5 / hpf 18646-6 LOINC Cell types squamous Crystals none none Bacteria none none Mucus present none 8247-9 LOINC Casts 0-5 none /lpf 21516-6 LOINC Cast types hyaline Other GLUCOSE FINGER/HEEL CAPILLAR Y - Collect Date/Time: 05/18/2022 04:29 [facility] ID: [id number] [address] [place], [place], [id number] LOINC: 33292-2 Test Value Unit Reference Range Code Code System Flag GLUCOSE CAP 134 mg/dL L=70 H=116 H [facility] COVID FLU RSV GENEXPE RT - Collect Date/Time: 05/18/2022 04:25 [facility] ID: [id number] [address] [place] [address], [id number] LOINC: 34901-3 Test Value Unit Reference Range Code Code System Flag COVID NEGATIVE Normal: Negative 84696-7 LOINC INFLUENZA A DNA NEGATIVE Normal: Negative 42262-8 LOINC INFLUENZA B DNA NEGATIVE Normal: Negative 44551-3 LOINC RSV DNA NEGATIVE Normal: Negative 16387-0 LOINC COMPREHENSIVE METABOLIC PANE L (CMP) - Collect Date/Time: 05/18/2022 04:15 [facility] ID: [id number] [address] [place] [address], [address] LOINC: 69672-6 Test Value Unit Reference Range Code Code [...] H=34 2028-9 LOINC ANION GAP 4.6 mmol/L 72741-8 LOINC CALCIUM SERUM 8.6 mg/dL L=8.2 H=10.2 76571-7 LOINC BILIRUBIN TOTAL 0.7 mg/dL L=0.0 H=1.3 1975-2 LOINC ALK. PHOS. 130 U/L L=46 H=116 6768-6 LOINC H SGOT (AST) 31 U/L L=15 H=37 1920-8 LOINC SGPT (ALT) 35 U/L L=12 H=78 1742-6 LOINC TOTAL PROTEIN 7.7 gm/dL L=6.0 H=8.0 2885-2 LOINC ALBUMIN 3.0 gm/dL L=3.4 H=5.0 1751-7 LOINC L AGE 81 years eGFR (non-Afr.Amer.) 55 mL/min 19329-8 LOINC eGFR (Afr-Citizen Of [place]) 66 mL/min 95772-0 LOINC C REACTIVE PROTEIN HIGH SENS ITIVITY* - Collect Date/Time: 05/18/2022 04:15 [facility] ID: [id number] [address] [place] [address], [address] LOINC: 49699-2 Test Value Unit Reference Range Code Code System Flag CRP-HIGH SENS. 147.97 mg/L L=0.00 H=3.00 40401-9 LOINC H CRP-HIGH SENS 14.80 mg/dL L=0.00 H=0.30 63873-8 LOINC H SED RATE* - Collect Date/[place] e: 05/18/2022 04:15 [facility] ID: [id number] [address] [place] [address], [address] LOINC: 4537-7 Test Value Unit Reference Range Code Code System Flag SED. RATE 72 mm/hr L=0 H=20 4537-7 LOINC H CBC W/ DIFFERENTIAL* - Colle ct Date/Time: 05/18/2022 04:15 [facility] ID: [id number] [address] [place] [address], [address] LOINC: 57213-4 Test Value Unit Reference Range Code Code System Flag WBC 8.07 th/cmm L=5.00 H=10.00 90-2 LOINC NEUT % 64.6 % L=40.0 H=80.0 LYMPH % 18.7 % L=10.0 H=50.0 MONO % 13.8 % L=2.0 H=12.0 60082-2 LOINC H EOS % 1.9 % L=0.0 H=8.0 BASO % 0.6 % L=0.0 H=3.0 IG % 0.4 % L=0.0 H=1.1 2514-8 LOINC NRBC % 0.0 % L=0.0 H=0.0 78515-5 LOINC NEUT abs count 5.2 th/cmm L=1.6 H=8.4 751-8 LOINC LYMPH abs count 1.5 th/cmm L=1.5 H=4.0 731-0 LOINC MONO abs count 1.1 th/cmm L=0.2 H=1.0 742-7 LOINC H EOS abs count 0.2 th/cmm L=0.0 H=0.5 711-2 LOINC BASO abs count 0.1 th/cmm L=0.0 H=0.2 704-7 LOINC IG abs count 0.0 th/cmm L=0.0 H=0.1 08134-4 LOINC NRBC abs count 0.0 mil/cmm L=0.0 H=0.0 21908-3 LOINC RBC 4.25 mil/cmm L=4.30 H=6.20 789-8 [...] HIGH SENSITIVITY* - Collect Date/Time: 05/18/2022 04:15 [facility] ID: [id number] [address] [place], [place], [address] LOINC: 88102-9 Test Value Unit Reference Range Code Code System Flag TROPONIN HS 8.7 pg/mL L=0.0 H=60.4 Specimen seq. ADM. 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 Report Digitally Signed by Fernando Mejias on 05/18/2022 07:57 AM EST Social History Type Status Start Date End Date Code Code Syst em Smoking History Former smoker 04/05/19541569 0266418 SNOMED CT Sex Male Vital Signs Vital Sign Value Unit [place] Value [place] Unit Date/Time Recent/Initial? Code Code System Body Mass Index 24.80 kg/m2 05/18/2022 04:28 Initial 96593 -5 LOINC Systolic Blood Pressure 150 mm[Hg] [...] Saturation 91 % 2022 07:00 Most Recent 42042 -5 LOINC O2 Saturation 95 % 2022 04:28 Initial 91308 -5 LOINC Inhaled Oxygen Flow Rate 1.00 L/min 05/18/2022 05:14 Initial 3151- 8 LOINC Pulse 81.0 /min 05/18/2022 07:00 Most Recent 8867- 4 LOINC Pulse 87.0 /min 05/18/2022 04:28 Initial 8867- 4 LOINC Respiration 18 /min 05/18/19 23 06:37 Most Recent 9279- 1 LOINC Respiration 18 /min 05/18/19 23 04:28 Initial 9279- 1 LOINC Temperature 36.9 Kristina 98.4 F 05/18/19 23 05:27 Most Recent 8310- 5 LOINC Temperature 36.3 Kristina 97.3 F 05/18/19 23 04:28 Initial 8310- 5 LOINC Weight 63.50 kg 140.00 lbs 05/18/2022 04:28 Initial 99052 -7 INC Medications Medication Start Date End Date Route [...] Tablet 04/28/2021 07/02/2022 ORAL DAILY 25 MILLIGRAMS 276466 RxNorm TAKE 25 MILLIGRAMS ORAL DAILY Omeprazole 20MG Oral Capsule, Delayed Release 04/28/2021 Unknown ORAL DAILY 20 MILLIGRAMS 561263 RxNorm TAKE 20 MILLIGRAMS ORAL DAILY glipiZIDE 2.5MG Oral Tablet, Extended Release 04/28/2021 07/02/2022 ORAL DAILY 2.5 MILLIGRAMS 281917 RxNorm TAKE 2.5 MILLIGRAMS ORAL DAILY Assessment You had the following problems: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 If you have left the hospital and have any questions, please contact your primary care physician. 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 26730643 SN OMED-CT FUNCTIONAL QUADRIPLEGIA active 368990 753345832 SNOMED-CT TYPE 2 DIABETES active 84211687 SNOM ED-CT WEAKNESS active 89315938 SNOMED-CT UNSTEADY GAIT active 81454516 SNOMED -CT JANAE - ACUTE KIDNEY INJURY 07/02/2022 resolved 77770472 SNOMED-CT DIABETES 04/23/2021 resolved 97625151 SNOMED-CT Allergies and Adverse Reactions Allergy Substance Reaction Severity Start Date Concern Status Code Code Syste m GARLIC OIL Hives (SNOMED-CT: 825631068) Active 6070973 RxNorm Plan of Treatment No Data Found Encounters Encounter Diagnosis Start Date Code Code Sys tem Dehydration 05/18/2022 SNOMED-CT Personal Care Team Section Performer Name Performer Role Active Date Inactive Da te
--- OUTSIDE RECORDS SUMMARY | 2023-11-05 18:41 | XMS_ITS ---
Author Organization Unknown Address [address] [place] [address] [phone] Phone Care Team Providers Care Barrel Waterer Name Role Phone ESTEPHANIE Tucker Attending Unavailable JUSDEB JOE Nathaly Primary Unavailable Social History Type Status Start Date End Date Code Code Syst em Smoking History Former smoker 04/05/19546065 2014234 SNOMED CT Sex Male Medications Medication Start [...] Tablet 04/28/2021 07/02/2022 ORAL DAILY 25 MILLIGRAMS 128118 RxNorm TAKE 25 MILLIGRAMS ORAL DAILY Omeprazole 20MG Oral Capsule, Delayed Release 04/28/2021 Unknown ORAL DAILY 20 MILLIGRAMS 757945 RxNorm TAKE 20 MILLIGRAMS ORAL DAILY glipiZIDE 2.5MG Oral Tablet, Extended Release 04/28/2021 07/02/2022 ORAL DAILY 2.5 MILLIGRAMS 014616 RxNorm TAKE 2.5 MILLIGRAMS ORAL DAILY Assessment You had the following problems: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 If you have left the hospital and have any questions, please contact your primary care physician. 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 97826324 SN OMED-CT FUNCTIONAL QUADRIPLEGIA active 332969 621054566 SNOMED-CT TYPE 2 DIABETES active 45894489 SNOM ED-CT WEAKNESS active 42804889 SNOMED-CT UNSTEADY GAIT active 34323283 SNOMED -CT JANAE - ACUTE KIDNEY INJURY 07/02/2022 resolved 50414777 SNOMED-CT DIABETES 04/23/2021 resolved 35846761 SNOMED-CT Allergies and Adverse Reactions Allergy Substance Reaction Severity Start Date Concern Status Code Code Syste m GARLIC OIL Hives (SNOMED-CT: 721795448) Active 6948539 RxNorm Plan of Treatment No Data Found Encounters Encounter Diagnosis Start Date Code Code Sys tem Acute kidney failure, unspecified 04/23/2021 SNOMED-CT Personal Care Team Section Performer Name Performer Role Active Date Inactive Da te
--- OUTSIDE RECORDS SUMMARY | 2023-11-05 18:41 | XMS_ITS ---
Author Organization Unknown Address [address] [place] [address] [phone] Phone Care Team Providers Care Mathematical Physicist Name Role Phone OSMIN SKINNER Registered Nurse Unavailable NANI TEMPLE Registered Nurse Unavailable RIANNA PEREZ Registered Nurse Unavailable Unavailable Xwatchlist Unavailable ESTEPHANIE Tucker Attending Unavailable HEMMER SOTERO M ER Unavailable FELSTED JOE A Primary Unavailable ELSY ANNEMARIE Landers Secondary Unavailable UNLISTED PROVIDER - REQUESTED Xhandoff Un available ESTEPHANIE Tucker Transferring Provider Results GLUCOSE FINGER/HEEL CAPILLAR Y - Collect Date/Time: 07/06/2022 07:36 [facility] ID: [id number] [address] [place] [address], [phone] LOINC: 54419-0 Test Value Unit Reference Range Code Code System Flag GLUCOSE CAP 156 mg/dL L=70 H=116 H GLUCOSE FINGER/HEEL CAPILLAR Y - Collect Date/Time: 07/05/2022 07:35 [facility] ID: [id number] [address] [place] [address], [phone] LOINC: 33435-1 Test Value Unit Reference Range Code Code System Flag GLUCOSE CAP 157 mg/dL L=70 H=116 H GLUCOSE FINGER/HEEL CAPILLAR Y - Collect Date/Time: 07/04/2022 08:04 [facility] ID: [id number] [address] [place] [address], [phone] LOINC: 25503-7 Test Value Unit Reference Range Code Code System Flag GLUCOSE CAP 161 mg/dL L=70 H=116 H GLUCOSE FINGER/HEEL CAPILLAR Y - Collect Date/Time: 07/03/2022 20:19 [facility] ID: [id number] [address] [place] [address], [id number] LOINC: 96150-3 Test Value Unit Reference Range Code Code System Flag GLUCOSE CAP 230 mg/dL L=70 H=116 H GLUCOSE FINGER/HEEL CAPILLAR Y - Collect Date/Time: 07/03/2022 06:30 [facility] ID: [id number] [address] [place] [address], [phone] LOINC: 75187-1 Test Value Unit Reference Range Code Code System Flag GLUCOSE CAP 137 mg/dL L=70 H=116 H URINALYSIS WITH REFLEX CULT IF POSITIVE* - Collect Date/Time: 07/02/2022 08:35 [facility] ID: [id number] [address] [place] [address], [address] LOINC: 06898-4 Test Value Unit Reference Range Code Code System Flag COLLECTION MODE: CLEAN CATCH 65172-6 LOINC Color YELLOW yellow 5778-6 LOINC Appearance CLEAR clear 5767-9 LOINC Glucose urine 250 negative mg/dl 79579-7 LOINC A Bilirubin NEGATIVE negative 5770-3 LOINC Ketones NEGATIVE negative mg/dl 2514-8 LOINC Spec gravity 1.010 1.003 - 1.030 5811-5 LOINC pH urine 7.5 5.0 - 7.0 2756-5 LOINC A Protein NEGATIVE negative mg/dl 36790-4 LOINC Urobilinogen 0.2 <or= 1 EU/dl 94324-8 LOINC Nitrite. NEGATIVE negative 5802-4 LOINC Blood NEGATIVE negative 5794-3 LOINC Leukocytes. NEGATIVE negative MICROSCOPIC NOT INDICAT GLUCOSE FINGER/HEEL CAPILLAR Y - Collect Date/Time: 07/02/2022 07:40 [facility] ID: [id number] [address] [place] [address], [phone] LOINC: 24684-6 Test Value Unit Reference Range Code Code System Flag GLUCOSE CAP 172 mg/dL L=70 H=116 H [facility] COVID FLU RSV GENEXPE RT - Collect Date/Time: 07/02/2022 06:47 [facility] ID: [id number] [address] [place], [place], [id number] LOINC: 87052-4 Test Value Unit Reference Range Code Code System Flag COVID NEGATIVE Normal: Negative 73520-1 LOINC INFLUENZA A DNA NEGATIVE Normal: Negative 29281-6 LOINC INFLUENZA B DNA NEGATIVE Normal: Negative 05037-5 LOINC RSV DNA NEGATIVE Normal: Negative 10353-7 LOINC TROPONIN HIGH SENSITIVITY* - Collect Date/Time: 07/02/2022 06:47 [facility] ID: [id number] [address] [place] [address], [address] LOINC: 51897-7 Test Value Unit Reference Range Code Code System Flag TROPONIN HS 8.2 pg/mL L=0.0 H=60.4 Specimen seq. RANDOM COMPREHENSIVE METABOLIC PANE L (CMP) - Collect Date/Time: 07/02/2022 06:47 [facility] ID: [id number] [address] [place] [address], [address] LOINC: 53684-3 Test Value Unit Reference Range Code Code [...] H=34 2028-9 LOINC ANION GAP 8.1 mmol/L 67866-9 LOINC CALCIUM SERUM 9.1 mg/dL L=8.2 H=10.2 66667-1 LOINC BILIRUBIN TOTAL 0.8 mg/dL L=0.0 H=1.3 1975-2 LOINC ALK. PHOS. 215 U/L L=46 H=116 6768-6 LOINC H SGOT (AST) 28 U/L L=15 H=37 1920-8 LOINC SGPT (ALT) 83 U/L L=12 H=78 1742-6 LOINC H TOTAL PROTEIN 8.1 gm/dL L=6.0 H=8.0 2885-2 LOINC H ALBUMIN 3.1 gm/dL L=3.4 H=5.0 1751-7 LOINC L AGE 81 years eGFR (non-Afr.Amer.) 69 mL/min 32447-2 LOINC eGFR (Afr-Slovak) 84 mL/min 16475-1 LOINC CBC W/ DIFFERENTIAL* - Colle ct Date/Time: 07/02/2022 06:47 [facility] ID: [id number] [address] [place], [place], [address] LOINC: 54770-3 Test Value Unit Reference Range Code Code System Flag WBC 7.73 th/cmm L=5.00 H=10.00 6690-2 LOINC NEUT % 70.6 % L=40.0 H=80.0 LYMPH % 16.7 % L=10.0 H=50.0 MONO % 10.6 % L=2.0 H=12.0 67978-1 LOINC EOS % 1.6 % L=0.0 H=8.0 BASO % 0.4 % L=0.0 H=3.0 IG % 0.1 % L=0.0 H=1.1 2514-8 LOINC NRBC % 0.0 % L=0.0 H=0.0 01563-3 LOINC NEUT abs count 5.5 th/cmm L=1.6 H=8.4 751-8 LOINC LYMPH abs count 1.3 th/cmm L=1.5 H=4.0 731-0 LOINC L MONO abs count 0.8 th/cmm L=0.2 H=1.0 742-7 LOINC EOS abs count 0.1 th/cmm L=0.0 H=0.5 711-2 LOINC BASO abs count 0.0 th/cmm L=0.0 H=0.2 704-7 LOINC IG abs count 0.0 th/cmm L=0.0 H=0.1 40122-6 LOINC NRBC abs count 0.0 mil/cmm L=0.0 H=0.0 89851-1 LOINC RBC 4.50 mil/cmm L=4.30 H=6.20 789-8 [...] 1V - Co mpleted: 07/02/2022 07:27 LOINC: [facility] RADI[facility] [place], [place] [address] PACS AUTOMOBILE RELOCATION ENGINEER REPORT Patient Name: NATY BONILLA MRN: Sex: : Age: [id number] M 1940 Account: Accession: Admit: StayType: [id number] 07/02/2022 E/R Ordered: Order ID: Submitted: Ordering Provider: 07/02/2022 06:59 [id number] ANNEMARIE SPENCE Completed: Technologist: Resulted: 07/02/2022 07:27 [...] Code Syst em Smoking History Former smoker 04/05/19543919 0012728 SNOMED CT Sex Male Vital Signs Vital Sign Value Unit [place] Value [place] Unit Date/Time Recent/Initial? Code Code System Body Mass Index 24.63 kg/m2 07/02/2022 06:44 Initial 25041 -5 LOINC Systolic Blood Pressure 159 mm[Hg] [...] Saturation 96 % 2022 07:36 Most Recent 93621 -5 LOINC O2 Saturation 96 % 2022 06:44 Initial 88717 -5 LOINC Fraction of Inspired Oxygen 21 [...] Most Recent 8310- 5 LOINC Temperature 36.3 Kristnia 97.3 F 07/03/19 06:44 Initial 8310- 5 LOINC Weight 67.13 kg 148.00 lbs 07/02/2022 06:44 Initial 17554 -7 LOINC Medications Medication Start Date End [...] Release 04/28/2021 Unknown ORAL DAILY 20 MILLIGRAMS 124553 RxNorm TAKE 20 MILLIGRAMS ORAL DAILY Assessment You had the following problems: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 If you have left the hospital and have any questions, please contact your primary care physician. 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 58854918 SN OMED-CT FUNCTIONAL QUADRIPLEGIA active 158846 763311171 SNOMED-CT TYPE 2 DIABETES active 95651115 SNOM ED-CT WEAKNESS active 62786208 SNOMED-CT UNSTEADY GAIT active 23981393 SNOMED -CT JANAE - ACUTE KIDNEY INJURY 07/02/2022 resolved 40610506 SNOMED-CT DIABETES 04/23/2021 resolved 12104330 SNOMED-CT Allergies and Adverse Reactions Allergy Substance Reaction Severity Start Date Concern Status Code Code Tonya matthews GARLIC OIL Hives (SNOMED-CT: 825519704) Active 2272473 RxNorm Plan of Treatment Plan Patient be placed on observation PT and OT evals Ambulate with assistance and with use of a walker Continue losartan for hypertension Continue glipizide for diabetes, monitor blood sugar Encounters Encounter Diagnosis Start Date Code Code Sys tem Adult failure to thrive 07/03/2022 SNOM ED-CT Personal Care Team Section Performer Name Performer Role Active Date Inactive Da te Consultation Notes [facility] 07/02/2022 11:59 All Demographics Patient Name Age Sex Visit Number Admission Date/Time Attending Physician Date of Service Room and Bed Emergency Contact NATY BONILLA SR 1940 81 years Male [id number] 07/02/2022 06:36 ANNEMARIE CHIN 07/02/2022 3A TIM BONILLA - [id number] REHABILITATION SERVICES _x__Physical Therapy ___Occupational Therapy ___Athletic Training ___Speech/Language Pathology SERVICE TYPE: ____Inpatient ____Outpatient _x___Emergency Department Other: For All Outpatient , ED, Observation and Outpatient Surgery patients: Is the patient currently under a Home Health Plan of Care? Yes _x___ No____ (If Yes, give a copy of this completed from to the Outboard Motor Inspector). Date of Service: 07/02/2022 Visit #: _1 Time: 1148 Note Type: _x__Initial Visit ___Treatment Note ___Progress Report ___Contact Note ___Re-Evaluation ___Discharge Summary Subjective: Pt states he wants to go home and can walk. Spouse and [id number] in present for evaluation state pt was [...] into home. Equipment Used prior/Assisted devices owned: , . Services used upon admission: Home Health services to include PT. Tamara Dugan RN from pt care services received approval from [facility] Shelly for PT eval in [...] E-signed 07/02/2022 11:47 History and Physical Notes [facility] 07/02/2022 14:35 Patient Name Age Sex Admission [...] have 1 grown son who lives in [facility]. 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 Allergy List GARLIC OIL, medication Active Home [...] droop. Gait has not been tested by [facility]: The patient is oriented x4. Mood [...] symptoms of Weakness, unsteady gait. Progress Notes [facility] 07/05/2022 15:10 07/05/2022, 15:09 SUBJECTIVE: 81 year-old [...] daily aspirin for history of previous stroke [facility] 07/06/2022 19:28 07/06/2022, 19:27 SUBJECTIVE: 81 year-old [...] daily aspirin for history of previous stroke [facility] 07/03/2022 12:06 07/03/2022, 12:04 SUBJECTIVE: 81 year-old [...] daily aspirin for history of previous stroke [facility] 07/04/2022 15:23 07/04/2022, 15:23 SUBJECTIVE: 81 year-old [...]
--- OUTSIDE RECORDS SUMMARY | 2023-11-05 18:42 | XMS_ITS ---
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 25530420 SN OMED-CT FUNCTIONAL QUADRIPLEGIA active 026328 064066515 SNOMED-CT TYPE 2 DIABETES active 07568313 SNOM ED-CT WEAKNESS active 98040222 SNOMED-CT UNSTEADY GAIT active 82499750 SNOMED -CT JANAE - ACUTE KIDNEY INJURY 07/02/2022 resolved 75215249 SNOMED-CT DIABETES 04/23/2021 resolved 67126490 SNOMED-CT Allergies and Adverse Reactions Allergy Substance Reaction Severity Start Date Concern Status Code Code Syste m GARLIC OIL Hives (SNOMED-CT: 167772022) Active 5498770 RxNorm Plan of Treatment No Data Found Encounters Encounter Diagnosis Start Date Code Code Sys tem Adult failure to thrive 07/03/2022 SNOM ED-CT Personal Care Team Section Performer Name Performer Role Active Date Inactive Da te
--- OUTSIDE RECORDS SUMMARY | 2023-11-05 18:42 | XMS_ITS ---
Author Organization Unknown Address [address] [place] [address] [phone] Phone Care Team Providers Care Ethyl Blender Name Role Phone VANDANA Quintanilla Attending Unavailable BHARATHIDEB MATTHEWSA Nathaly Primary Unavailable Social History Type Status Start Date End Date Code Code Syst em Smoking History Former smoker 04/05/19544197 9170288 SNOMED CT Sex Male Medications Medication Start [...] Tablet 04/28/2021 07/02/2022 ORAL DAILY 25 MILLIGRAMS 096268 RxNorm TAKE 25 MILLIGRAMS ORAL DAILY Omeprazole 20MG Oral Capsule, Delayed Release 04/28/2021 Unknown ORAL DAILY 20 MILLIGRAMS 604383 RxNorm TAKE 20 MILLIGRAMS ORAL DAILY glipiZIDE 2.5MG Oral Tablet, Extended Release 04/28/2021 07/02/2022 ORAL DAILY 2.5 MILLIGRAMS 833286 RxNorm TAKE 2.5 MILLIGRAMS ORAL DAILY Assessment You had the following problems: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 If you have left the hospital and have any questions, please contact your primary care physician. 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 16330559 SN OMED-CT FUNCTIONAL QUADRIPLEGIA active 076870 [id number] SNOMED-CT TYPE 2 DIABETES active 05720483 SNOM ED-CT WEAKNESS active 64196602 SNOMED-CT UNSTEADY GAIT active 07487119 SNOMED -CT JANAE - ACUTE KIDNEY INJURY 07/02/2022 resolved 79889067 SNOMED-CT DIABETES 04/23/2021 resolved 15923528 SNOMED-CT Allergies and Adverse Reactions Allergy Substance Reaction Severity Start Date Concern Status Code Code Syste m GARLIC OIL Hives (SNOMED-CT: 323853289) Active 1419631 RxNorm Plan of Treatment No Data Found Encounters Encounter Diagnosis Start Date Code Code Sys tem Weakness 07/02/2022 SNOMED-CT Personal Care Team Section Performer Name Performer Role Active Date Inactive Da te
== END 2023-11-05 18:31 | disposition home or self-care (01) ==
LOC: NCHCN 18:30
PROVIDERS: PCP Family Medicine; Visit Provider Family Medicine
DX: E11.9 Type 2 diabetes mellitus without complications (principal); R33.9 Retention of urine, unspecified; R79.89 Other specified abnormal findings of blood chemistry
CPT/HCPCS: 80048

== ENCOUNTER 2023-12-06 11:16 | Outpatient (REF) | payer MEDICARE, BC, SELFPAY ==
--- OUTSIDE RECORDS SUMMARY | 2023-12-06 11:19 | XMS_ITS ---
Author Organization Unknown Address [address] [place] [address] [phone] Phone Care Team Providers Care Brand Strategist Name Role Phone ESTEPHANIE Tucker Attending Unavailable CHRIS Arias Secondary Unavailable Social History Type Status Start Date End Date Code Code Syst em Smoking History Former smoker 04/05/19549943 0975461 SNOMED CT Sex Male Medications Medication Start [...] Tablet 04/28/2021 07/02/2022 ORAL DAILY 25 MILLIGRAMS 182729 RxNorm TAKE 25 MILLIGRAMS ORAL DAILY Omeprazole 20MG Oral Capsule, Delayed Release 04/28/2021 Unknown ORAL DAILY 20 MILLIGRAMS 742397 RxNorm TAKE 20 MILLIGRAMS ORAL DAILY glipiZIDE 2.5MG Oral Tablet, Extended Release 04/28/2021 07/02/2022 ORAL DAILY 2.5 MILLIGRAMS 522534 RxNorm TAKE 2.5 MILLIGRAMS ORAL DAILY Assessment You had the following problems:FAILURE TO THRIVEFUNCTIONAL [facility]AD[facility]IPLEGIATYPE [facility] Should you have any questions prior to discharge, please contact a member of your healthcare team. If you have left the hospital and have any questions, please contact your primary care physician. 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 63232515 SN OMED-CT FUNCTIONAL QUADRIPLEGIA active 972410 497164611 SNOMED-CT TYPE 2 DIABETES active 80560703 SNOM ED-CT WEAKNESS active 67155684 SNOMED-CT UNSTEADY GAIT active 18281581 SNOMED -CT JANAE - ACUTE KIDNEY INJURY 07/02/2022 resolved 19497065 SNOMED-CT DIABETES 04/23/2021 resolved 20141860 SNOMED-CT Allergies and Adverse Reactions Allergy Substance Reaction Severity Start Date Concern Status Code Code Syste m GARLIC OIL Hives (SNOMED-CT: 942617179) Active 2862869 RxNorm Plan of Treatment No Data Found Encounters Encounter Diagnosis Start Date Code Code Sys tem Weakness 04/23/2021 SNOMED-CT Personal Care Team Section Performer Name Performer Role Active Date Inactive Da te
--- OUTSIDE RECORDS SUMMARY | 2023-12-06 11:20 | XMS_ITS ---
Author Organization Unknown Address [address] [place] [address] [phone] Phone Care Team Providers Care Marketing Reporting Analyst Name Role Phone ÁNGEL HERBERT Registered Nurse Unavailable RIANNA PEREZ Registered Nurse Unavailable MARIAA Pal Attending Unavailable NANDA Haddad ER Unavailable TERRY MATTHEWSA Nathaly Primary Unavailable UNLISTED PROVIDER - REQUESTED Xhandoff Un available Results URINALYSIS WITH MICRO AND RE FLEX CULTUR* - Collect Date/Time: 05/18/2022 06:53 [facility] ID: [id number] [address] [place], [place], [address] LOINC: 60087-0 Test Value Unit Reference Range Code Code System Flag COLLECTION MODE: CLEAN CATCH 39083-6 LOINC Color YELLOW yellow 5778-6 LOINC Appearance CLEAR clear 5767-9 LOINC Glucose urine NEGATIVE negative mg/dl 37656-8 LOINC Bilirubin NEGATIVE negative 5770-3 LOINC Ketones 15 negative mg/dl 2514-8 LOINC A Spec gravity <=1.005 1.003 - 1.030 5811-5 LOINC pH urine 6.5 5.0 - 7.0 2756-5 LOINC Protein NEGATIVE negative mg/dl 18900-3 LOINC Urobilinogen 0.2 <or= 1 EU/dl 80087-3 LOINC Nitrite. NEGATIVE negative 5802-4 LOINC Blood NEGATIVE negative 5794-3 LOINC Leukocytes. NEGATIVE negative WBCs. 0-5 0-5 / hpf 33082-3 LOINC RBCs 0-5 0-5 / hpf 20279-2 LOINC Epith cells 0-5 0-5 / hpf 04722-2 LOINC Cell types squamous Crystals none none Bacteria none none Mucus present none 8247-9 LOINC Casts 0-5 none /lpf 30037-0 LOINC Cast types hyaline Other GLUCOSE FINGER/HEEL CAPILLAR Y - Collect Date/Time: 05/18/2022 04:29 [facility] ID: [id number] [address] [place], [place], [id number] LOINC: 44800-3 Test Value Unit Reference Range Code Code System Flag GLUCOSE CAP 134 mg/dL L=70 H=116 H [facility] COVID FLU RSV GENEXPE RT - Collect Date/Time: 05/18/2022 04:25 [facility] ID: [id number] [address] [place] [address], [id number] LOINC: 56155-0 Test Value Unit Reference Range Code Code System Flag COVID NEGATIVE Normal: Negative 72602-6 LOINC INFLUENZA A DNA NEGATIVE Normal: Negative 33313-1 LOINC INFLUENZA B DNA NEGATIVE Normal: Negative 78689-5 LOINC RSV DNA NEGATIVE Normal: Negative 65782-8 LOINC COMPREHENSIVE METABOLIC PANE L (CMP) - Collect Date/Time: 05/18/2022 04:15 [facility] ID: [id number] [address] [place] [address], [address] LOINC: 03539-6 Test Value Unit Reference Range Code Code [...] H=34 2028-9 LOINC ANION GAP 4.6 mmol/L 73439-6 LOINC CALCIUM SERUM 8.6 mg/dL L=8.2 H=10.2 46328-7 LOINC BILIRUBIN TOTAL 0.7 mg/dL L=0.0 H=1.3 1975-2 LOINC ALK. PHOS. 130 U/L L=46 H=116 6768-6 LOINC H SGOT (AST) 31 U/L L=15 H=37 1920-8 LOINC SGPT (ALT) 35 U/L L=12 H=78 1742-6 LOINC TOTAL PROTEIN 7.7 gm/dL L=6.0 H=8.0 2885-2 LOINC ALBUMIN 3.0 gm/dL L=3.4 H=5.0 1751-7 LOINC L AGE 81 years eGFR (non-Afr.Amer.) 55 mL/min 21936-5 LOINC eGFR (Afr-Fijian) 66 mL/min 91317-7 LOINC C REACTIVE PROTEIN HIGH SENS ITIVITY* - Collect Date/Time: 05/18/2022 04:15 [facility] ID: [id number] [address] [place] [address], [address] LOINC: 80666-9 Test Value Unit Reference Range Code Code System Flag CRP-HIGH SENS. 147.97 mg/L L=0.00 H=3.00 57586-7 LOINC H CRP-HIGH SENS 14.80 mg/dL L=0.00 H=0.30 70786-2 LOINC H SED RATE* - Collect Date/[place] e: 05/18/2022 04:15 [facility] ID: [id number] [address] [place] [address], [address] LOINC: 4537-7 Test Value Unit Reference Range Code Code System Flag SED. RATE 72 mm/hr L=0 H=20 4537-7 LOINC H CBC W/ DIFFERENTIAL* - Colle ct Date/Time: 05/18/2022 04:15 [facility] ID: [id number] [address] [place] [address], [address] LOINC: 23826-2 Test Value Unit Reference Range Code Code System Flag WBC 8.07 th/cmm L=5.00 H=10.00 90-2 LOINC NEUT % 64.6 % L=40.0 H=80.0 LYMPH % 18.7 % L=10.0 H=50.0 MONO % 13.8 % L=2.0 H=12.0 44811-0 LOINC H EOS % 1.9 % L=0.0 H=8.0 BASO % 0.6 % L=0.0 H=3.0 IG % 0.4 % L=0.0 H=1.1 2514-8 LOINC NRBC % 0.0 % L=0.0 H=0.0 95351-8 LOINC NEUT abs count 5.2 th/cmm L=1.6 H=8.4 751-8 LOINC LYMPH abs count 1.5 th/cmm L=1.5 H=4.0 731-0 LOINC MONO abs count 1.1 th/cmm L=0.2 H=1.0 742-7 LOINC H EOS abs count 0.2 th/cmm L=0.0 H=0.5 711-2 LOINC BASO abs count 0.1 th/cmm L=0.0 H=0.2 704-7 LOINC IG abs count 0.0 th/cmm L=0.0 H=0.1 21252-4 LOINC NRBC abs count 0.0 mil/cmm L=0.0 H=0.0 09344-3 LOINC RBC 4.25 mil/cmm L=4.30 H=6.20 789-8 [...] HIGH SENSITIVITY* - Collect Date/Time: 05/18/2022 04:15 [facility] ID: [id number] [address] [place], [place], [address] LOINC: 39535-7 Test Value Unit Reference Range Code Code System Flag TROPONIN HS 8.7 pg/mL L=0.0 H=60.4 Specimen seq. ADM. XR CHEST PORTABLE OR 1V - Co mpleted: 05/18/2022 04:37 LOINC: [facility] [place], [place] [address] PACS RUG SHAMPOOER REPORT Patient Name: NATY BONILLA MRN: Sex: : Age: [id number] M [id number] Account: Accession: Admit: StayType: [id number] 05/18/2022 E/R Ordered: Order ID: Submitted: Ordering Provider: 05/18/2022 04:27 [id number] HETAL TOMLINSON Completed: Technologist: Resulted: 05/18/2022 04:37 [...] Code Syst em Smoking History Former smoker 04/05/19545072 905[address] Sex Male Vital Signs Vital Sign Value Unit Reed Value Reed Unit Date/Time Recent/Initial? Code Code System Body Mass Index 24.80 kg/m2 05/18/2022 04:28 Initial 38271 -5 LOINC Systolic Blood Pressure 150 mm[Hg] [...] Saturation 91 % 2022 07:00 Most Recent 35420 -5 LOINC O2 Saturation 95 % 2022 04:28 Initial 59196 -5 LOINC Inhaled Oxygen Flow Rate 1.00 [...] 63.50 kg 140.00 lbs 05/18/2022 04:28 Initial 91057 -7 INC Medications Medication Start Date End [...] Tablet 04/28/2021 07/02/2022 ORAL DAILY 25 MILLIGRAMS 874979 RxNorm TAKE 25 MILLIGRAMS ORAL DAILY Omeprazole 20MG Oral Capsule, Delayed Release 04/28/2021 Unknown ORAL DAILY 20 MILLIGRAMS 860037 RxNorm TAKE 20 MILLIGRAMS ORAL DAILY glipiZIDE 2.5MG Oral Tablet, Extended Release 04/28/2021 07/02/2022 ORAL DAILY 2.5 MILLIGRAMS 626109 RxNorm TAKE 2.5 MILLIGRAMS ORAL DAILY Assessment You had the following problems: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 [facility] Discharge Instructions Should you have any questions prior to discharge, please contact a member of your healthcare team. If you have left the hospital and have any questions, please contact your primary care physician. 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 93788339 SN OMED-CT FUNCTIONAL QUADRIPLEGIA active 958220 669754276 SNOMED-CT TYPE 2 DIABETES active 65020224 SNOM ED-CT WEAKNESS active 98722865 SNOMED-CT UNSTEADY GAIT active 18322460 SNOMED -CT JANAE - ACUTE KIDNEY INJURY 07/02/2022 resolved 64575441 SNOMED-CT DIABETES 04/23/2021 resolved 88946550 SNOMED-CT Allergies and Adverse Reactions Allergy Substance Reaction Severity Start Date Concern Status Code Code Syste m GARLIC OIL Hives (SNOMED-CT: 259271027) Active 1505118 RxNorm Plan of Treatment No Data Found Encounters Encounter Diagnosis Start Date Code Code Sys tem Dehydration 05/18/2022 SNOMED-CT Personal Care Team Section Performer Name Performer Role Active Date Inactive Da te
--- OUTSIDE RECORDS SUMMARY | 2023-12-06 11:20 | XMS_ITS ---
Author Organization Unknown Address [address] [place] [address] [phone] Phone Care Team Providers Care Surgical Instrument Mechanic Name Role Phone ESTEPHANIE Tucker Attending Unavailable BHARATHIDEB JOE Nathaly Primary Unavailable Social History Type Status Start Date End Date Code Code Syst em Smoking History Former smoker 04/05/19547407 2313567 SNOMED CT Sex Male Medications Medication Start [...] Tablet 04/28/2021 07/02/2022 ORAL DAILY 25 MILLIGRAMS 141878 RxNorm TAKE 25 MILLIGRAMS ORAL DAILY Omeprazole 20MG Oral Capsule, Delayed Release 04/28/2021 Unknown ORAL DAILY 20 MILLIGRAMS 701527 RxNorm TAKE 20 MILLIGRAMS ORAL DAILY glipiZIDE 2.5MG Oral Tablet, Extended Release 04/28/2021 07/02/2022 ORAL DAILY 2.5 MILLIGRAMS 598368 RxNorm TAKE 2.5 MILLIGRAMS ORAL DAILY Assessment You had the following problems:FAILURE TO THRIVEFUNCTIONAL QUADRIPLEGIATYPE 2 [facility] Instructions Should you have any questions prior to discharge, please contact a member of your healthcare team. If you have left the hospital and have any questions, please contact your primary care physician. 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 02919750 SN OMED-CT FUNCTIONAL QUADRIPLEGIA active 282826 994714698 SNOMED-CT TYPE 2 DIABETES active 04482889 SNOM ED-CT WEAKNESS active 05617716 SNOMED-CT UNSTEADY GAIT active 90890462 SNOMED -CT JANAE - ACUTE KIDNEY INJURY 07/02/2022 resolved 73007091 SNOMED-CT DIABETES 04/23/2021 resolved 30177306 SNOMED-CT Allergies and Adverse Reactions Allergy Substance Reaction Severity Start Date Concern Status Code Code Syste m GARLIC OIL Hives (SNOMED-CT: 825456730) Active 3663889 RxNorm Plan of Treatment No Data Found Encounters Encounter Diagnosis Start Date Code Code Sys tem Acute kidney failure, unspecified 04/23/2021 SNOMED-CT Personal Care Team Section Performer Name Performer Role Active Date Inactive Da te
--- OUTSIDE RECORDS SUMMARY | 2023-12-06 11:21 | XMS_ITS ---
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 89109224 SN OMED-CT FUNCTIONAL QUADRIPLEGIA active 519110 652249801 SNOMED-CT TYPE 2 DIABETES active 46135137 SNOM ED-CT WEAKNESS active 39830198 SNOMED-CT UNSTEADY GAIT active 23171042 SNOMED -CT JANAE - ACUTE KIDNEY INJURY 07/02/2022 resolved 44721861 SNOMED-CT DIABETES 04/23/2021 resolved 93134665 SNOMED-CT Allergies and Adverse Reactions Allergy Substance Reaction Severity Start Date Concern Status Code Code Syste m GARLIC OIL Hives (SNOMED-CT: 764904329) Active 5744168 RxNorm Plan of Treatment No Data Found Encounters Encounter Diagnosis Start Date Code Code Sys tem Adult failure to thrive 07/03/2022 SNOM ED-CT Personal Care Team Section Performer Name Performer Role Active Date Inactive Da te
--- OUTSIDE RECORDS SUMMARY | 2023-12-06 11:21 | XMS_ITS ---
Author Organization Unknown Address [address] [place] [address] [phone] Phone Care Team Providers Care Seed Cleaning Manager Name Role Phone MAURICIO Quintanilla Attending Unavailable TERRY JOE Nathaly Primary Unavailable Results URINALYSIS WITH REFLEX CULT IF POSITIVE* - Collect Date/Time: 05/20/2022 12:05 [facility] ID: [id number] [address] [place], [place], [address] LOINC: 26509-3 Test Value Unit Reference Range Code Code System Flag COLLECTION MODE: NOT STATED 48885-8 LOINC Color YELLOW yellow 5778-6 LOINC Appearance CLEAR clear 5767-9 LOINC Glucose urine >=1000 negative mg/dl 04479-3 LOINC A Bilirubin NEGATIVE negative 5770-3 LOINC Ketones TRACE negative mg/dl 2514-8 LOINC A Spec gravity 1.015 1.003 - 1.030 5811-5 LOINC pH urine 7.5 5.0 - 7.0 2756-5 LOINC A Protein NEGATIVE negative mg/dl 09725-9 LOINC Urobilinogen 0.2 <or= 1 EU/dl 59606-7 LOINC Nitrite. NEGATIVE negative 5802-4 LOINC Blood NEGATIVE negative 5794-3 LOINC Leukocytes. NEGATIVE negative MICROSCOPIC NOT INDICAT Social History Type Status Start Date End Date Code Code Syst em Smoking History Former smoker 04/05/19549434 7934395 SNOMED CT Sex Male Medications Medication Start [...] Tablet 04/28/2021 07/02/2022 ORAL DAILY 25 MILLIGRAMS 079274 RxNorm TAKE 25 MILLIGRAMS ORAL DAILY Omeprazole 20MG Oral Capsule, Delayed Release 04/28/2021 Unknown ORAL DAILY 20 MILLIGRAMS 285167 RxNorm TAKE 20 MILLIGRAMS ORAL DAILY glipiZIDE 2.5MG Oral Tablet, Extended Release 04/28/2021 07/02/2022 ORAL DAILY 2.5 MILLIGRAMS 045153 RxNorm TAKE 2.5 MILLIGRAMS ORAL DAILY Assessment You had the following problems:FAILURE TO THRIVEFUNCTIONAL QUADRIPLEGIATYPE 2 [facility]WE[facility] Discharge Instructions Should you have any questions prior to discharge, please contact a member of your healthcare team. If you have left the hospital and have any questions, please contact your primary care physician. 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 23855889 SN OMED-CT FUNCTIONAL QUADRIPLEGIA active 583599 534115437 SNOMED-CT TYPE 2 DIABETES active 10947104 SNOM ED-CT WEAKNESS active 18324614 SNOMED-CT UNSTEADY GAIT active 53445441 SNOMED -CT JANAE - ACUTE KIDNEY INJURY 07/02/2022 resolved 02322240 SNOMED-CT DIABETES 04/23/2021 resolved 30686872 SNOMED-CT Allergies and Adverse Reactions Allergy Substance Reaction Severity Start Date Concern Status Code Code Syste m GARLIC OIL Hives (SNOMED-CT: 686123375) Active 8094666 RxNorm Plan of Treatment No Data Found Encounters Encounter Diagnosis Start Date Code Code Sys tem Dysuria 05/20/2022 SNOMED-CT Personal Care Team Section Performer Name Performer Role Active Date Inactive Da te
--- OUTSIDE RECORDS SUMMARY | 2023-12-06 11:21 | XMS_ITS ---
Author Organization Unknown Address [address] [place] [address] [phone] Phone Care Team Providers Care Helicopter Pilot Name Role Phone VANDANA Quintanilla Attending Unavailable BHARATHIDEB MATTHEWSA Nathaly Primary Unavailable Social History Type Status Start Date End Date Code Code Syst em Smoking History Former smoker 04/05/19545204 5635880 SNOMED CT Sex Male Medications Medication Start [...] Tablet 04/28/2021 07/02/2022 ORAL DAILY 25 MILLIGRAMS 071008 RxNorm TAKE 25 MILLIGRAMS ORAL DAILY Omeprazole 20MG Oral Capsule, Delayed Release 04/28/2021 Unknown ORAL DAILY 20 MILLIGRAMS 718594 RxNorm TAKE 20 MILLIGRAMS ORAL DAILY glipiZIDE 2.5MG Oral Tablet, Extended Release 04/28/2021 07/02/2022 ORAL DAILY 2.5 MILLIGRAMS 933632 RxNorm TAKE 2.5 MILLIGRAMS ORAL DAILY Assessment You had the following problems:FAILURE TO THRIVEFUNCTIONAL QUADRIPLEGIATYPE [facility] Dis[facility] Instructions Should you have any questions prior to discharge, please contact a member of your healthcare team. If you have left the hospital and have any questions, please contact your primary care physician. 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 32258211 SN OMED-CT FUNCTIONAL QUADRIPLEGIA active 819877 180142854 SNOMED-CT TYPE 2 DIABETES active 22025845 SNOM ED-CT WEAKNESS active 00851483 SNOMED-CT UNSTEADY GAIT active 87312318 SNOMED -CT JANAE - ACUTE KIDNEY INJURY 07/02/2022 resolved 76996112 SNOMED-CT DIABETES 04/23/2021 resolved 77068675 SNOMED-CT Allergies and Adverse Reactions Allergy Substance Reaction Severity Start Date Concern Status Code Code Syste m GARLIC OIL Hives (SNOMED-CT: 976912275) Active 9120191 RxNorm Plan of Treatment No Data Found Encounters Encounter Diagnosis Start Date Code Code Sys tem Weakness 07/02/2022 SNOMED-CT Personal Care Team Section Performer Name Performer Role Active Date Inactive Da te
--- OUTSIDE RECORDS SUMMARY | 2023-12-06 11:21 | XMS_ITS ---
Author Organization Unknown Address [address] [place] [address] [phone] Phone Care Team Providers Care Framing And Hanging Name Role Phone OSMIN SKINNER Registered Nurse Unavailable NANI TEMPLE Registered Nurse Unavailable RIANNA PEREZ Registered Nurse Unavailable Unavailable Xwatchlist Unavailable ESTEPHANIE Tucker Attending Unavailable HEMMER SOTERO M ER Unavailable FELSTED JOE A Primary Unavailable ELSY ANNEMARIE Landers Secondary Unavailable UNLISTED PROVIDER - REQUESTED Xhandoff Un available ESTEPHANIE Tucker Transferring Provider [phone] Results GLUCOSE FINGER/HEEL CAPILLAR Y - Collect Date/Time: 07/06/2022 07:36 [facility] ID: [id number] [address] [place] [address], [phone] LOINC: 51512-9 Test Value Unit Reference Range Code Code System Flag GLUCOSE CAP 156 mg/dL L=70 H=116 H GLUCOSE FINGER/HEEL CAPILLAR Y - Collect Date/Time: 07/05/2022 07:35 [facility] ID: [id number] [address] [place] [address], [id number] LOINC: 61863-8 Test Value Unit Reference Range Code Code System Flag GLUCOSE CAP 157 mg/dL L=70 H=116 H GLUCOSE FINGER/HEEL CAPILLAR Y - Collect Date/Time: 07/04/2022 08:04 [facility] ID: [id number] [address] [place] [address], [id number] LOINC: 57273-9 Test Value Unit Reference Range Code Code System Flag GLUCOSE CAP 161 mg/dL L=70 H=116 H GLUCOSE FINGER/HEEL CAPILLAR Y - Collect Date/Time: 07/03/2022 20:19 [facility] ID: [id number] [address] [place] [address], [id number] LOINC: 70488-3 Test Value Unit Reference Range Code Code System Flag GLUCOSE CAP 230 mg/dL L=70 H=116 H GLUCOSE FINGER/HEEL CAPILLAR Y - Collect Date/Time: 07/03/2022 06:30 [facility] ID: [id number] [address] [place] [address], [phone] LOINC: 31099-5 Test Value Unit Reference Range Code Code System Flag GLUCOSE CAP 137 mg/dL L=70 H=116 H URINALYSIS WITH REFLEX CULT IF POSITIVE* - Collect Date/Time: 07/02/2022 08:35 [facility] ID: [id number] [address] [place] [address], 5661 LOINC: 28259-7 Test Value Unit Reference Range Code Code System Flag COLLECTION MODE: CLEAN CATCH 48863-2 LOINC Color YELLOW yellow 5778-6 LOINC Appearance CLEAR clear 5767-9 LOINC Glucose urine 250 negative mg/dl 15766-7 LOINC A Bilirubin NEGATIVE negative 5770-3 LOINC Ketones NEGATIVE negative mg/dl 2514-8 LOINC Spec gravity 1.010 1.003 - 1.030 5811-5 LOINC pH urine 7.5 5.0 - 7.0 2756-5 LOINC A Protein NEGATIVE negative mg/dl 74307-4 LOINC Urobilinogen 0.2 <or= 1 EU/dl 51756-7 LOINC Nitrite. NEGATIVE negative 5802-4 LOINC Blood NEGATIVE negative 5794-3 LOINC Leukocytes. NEGATIVE negative MICROSCOPIC NOT INDICAT GLUCOSE FINGER/HEEL CAPILLAR Y - Collect Date/Time: 07/02/2022 07:40 [facility] ID: [id number] [address] [place] [address], [id number] LOINC: 48760-8 Test Value Unit Reference Range Code Code System Flag GLUCOSE CAP 172 mg/dL L=70 H=116 H [facility] COVID FLU RSV GENEXPE RT - Collect Date/Time: 07/02/2022 06:47 [facility] ID: [id number] [address] [place] [address], [phone] LOINC: 67607-2 Test Value Unit Reference Range Code Code System Flag COVID NEGATIVE Normal: Negative 62738-1 LOINC INFLUENZA A DNA NEGATIVE Normal: Negative 57748-9 LOINC INFLUENZA B DNA NEGATIVE Normal: Negative 89898-7 LOINC RSV DNA NEGATIVE Normal: Negative 02500-6 LOINC TROPONIN HIGH SENSITIVITY* - Collect Date/Time: 07/02/2022 06:47 [facility] ID: [id number] [address] [place] [address], [address] LOINC: 20120-7 Test Value Unit Reference Range Code Code System Flag TROPONIN HS 8.2 pg/mL L=0.0 H=60.4 Specimen seq. RANDOM COMPREHENSIVE METABOLIC PANE L (CMP) - Collect Date/Time: 07/02/2022 06:47 [facility] ID: [id number] [address] [place] [address], 5[address] LOINC: 59654-1 Test Value Unit Reference Range Code Code [...] H=34 2028-9 LOINC ANION GAP 8.1 mmol/L 35853-4 LOINC CALCIUM SERUM 9.1 mg/dL L=8.2 H=10.2 42657-0 LOINC BILIRUBIN TOTAL 0.8 mg/dL L=0.0 H=1.3 1975-2 LOINC ALK. PHOS. 215 U/L L=46 H=116 6768-6 LOINC H SGOT (AST) 28 U/L L=15 H=37 1920-8 LOINC SGPT (ALT) 83 U/L L=12 H=78 1742-6 LOINC H TOTAL PROTEIN 8.1 gm/dL L=6.0 H=8.0 2885-2 LOINC H ALBUMIN 3.1 gm/dL L=3.4 H=5.0 1751-7 LOINC L AGE 81 years eGFR (non-Afr.Amer.) 69 mL/min 37373-2 LOINC eGFR (Afr-Mosotho) 84 mL/min 29940-9 LOINC CBC W/ DIFFERENTIAL* - Colle ct Date/Time: 07/02/2022 06:47 [facility] ID: [id number] [address] [place], [place], [address] LOINC: 44491-1 Test Value Unit Reference Range Code Code System Flag WBC 7.73 th/cmm L=5.00 H=10.00 6690-2 LOINC NEUT % 70.6 % L=40.0 H=80.0 LYMPH % 16.7 % L=10.0 H=50.0 MONO % 10.6 % L=2.0 H=12.0 69565-6 LOINC EOS % 1.6 % L=0.0 H=8.0 BASO % 0.4 % L=0.0 H=3.0 IG % 0.1 % L=0.0 H=1.1 2514-8 LOINC NRBC % 0.0 % L=0.0 H=0.0 63519-2 LOINC NEUT abs count 5.5 th/cmm L=1.6 H=8.4 751-8 LOINC LYMPH abs count 1.3 th/cmm L=1.5 H=4.0 731-0 LOINC L MONO abs count 0.8 th/cmm L=0.2 H=1.0 742-7 LOINC EOS abs count 0.1 th/cmm L=0.0 H=0.5 711-2 LOINC BASO abs count 0.0 th/cmm L=0.0 H=0.2 704-7 LOINC IG abs count 0.0 th/cmm L=0.0 H=0.1 17236-5 LOINC NRBC abs count 0.0 mil/cmm L=0.0 H=0.0 37654-2 LOINC RBC 4.50 mil/cmm L=4.30 H=6.20 789-8 [...] 1V - Co mpleted: 07/02/2022 07:27 LOINC: [facility] [place], [place] [address] PACS SMOKING PIPE DRILLER AND THREADER REPORT Patient Name: NATY BONILLA MRN: Sex: : Age: [id number] M 1940 81 Account: Accession: Admit: StayType: [id number] 07/02/2022 E/R Ordered: Order ID: Submitted: Ordering Provider: 07/02/2022 06:59 [id number] ANNEMARIE SPENCE Completed: Technologist: Resulted: 07/02/2022 07:27 [...] Code Syst em Smoking History Former smoker 04/05/19546820 8205915 SNOMED CT Sex Male Vital Signs Vital Sign Value Unit [place] Value [place] Unit Date/Time Recent/Initial? Code Code System Body Mass Index 24.63 kg/m2 07/02/2022 06:44 Initial 25726 -5 LOINC Systolic Blood Pressure 159 mm[Hg] [...] Saturation 96 % 2022 07:36 Most Recent 24836 -5 LOINC O2 Saturation 96 % 2022 06:44 Initial 95791 -5 LOINC Fraction of Inspired Oxygen 21 % 07/03/2022 23:35 Initial 3150- 0 LOINC Pulse 62.0 /min 07/07/2022 07:36 Most Recent 8867- 4 LOINC Pulse 73.0 /min 07/02/2022 06:44 Initial 8867- 4 LOINC Respiration 20 /min 07/08/19 07:36 Most Recent 9279- 1 LOINC Respiration 18 /min 07/03/19 06:44 Initial 9279- 1 LOINC Temperature 36.2 Kristina 97.2 F 07/08/19 07:36 Most Recent 8310- 5 LOINC Temperature 36.3 Kristina 97.3 F 07/03/19 06:44 Initial 8310- 5 LOINC Weight 67.13 kg 148.00 lbs 07/02/2022 06:44 Initial 88775 -7 LOINC Medications Medication Start Date End [...] Release 04/28/2021 Unknown ORAL DAILY 20 MILLIGRAMS 341738 RxNorm TAKE 20 MILLIGRAMS ORAL DAILY Assessment You had the following problems: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 If you have left the hospital and have any questions, please contact your primary care physician. 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 25131922 SN OMED-CT FUNCTIONAL QUADRIPLEGIA active 678984 705299924 SNOMED-CT TYPE 2 DIABETES active 91645414 SNOM ED-CT WEAKNESS active 27227156 SNOMED-CT UNSTEADY GAIT active 06384131 SNOMED -CT JANAE - ACUTE KIDNEY INJURY 07/02/2022 resolved 18545941 SNOMED-CT DIABETES 04/23/2021 resolved 78503258 SNOMED-CT Allergies and Adverse Reactions Allergy Substance Reaction Severity Start Date Concern Status Code Code Tonya matthews GARLIC OIL Hives (SNOMED-CT: 071254247) Active 4311379 RxNorm Plan of Treatment Plan Patient be [...] Active Date Inactive Da te Consultation Notes [facility] 07/02/2022 11:59 All Demographics Patient Name Age Sex Visit Number Admission Date/Time Attending Physician Date of Service Room and Bed Emergency Contact NATY BONILLA SR 1940 81 years Male [id number] 07/02/2022 06:36 ANNEMARIE CHIN 07/02/2022 3A TIM BONILLA - [id number] REHABILITATION SERVICES _x__Physical Therapy ___Occupational Therapy ___Athletic Training ___Speech/Language Pathology SERVICE TYPE: ____Inpatient ____Outpatient _x___Emergency Department Other: For All Outpatient , ED, Observation and Outpatient Surgery patients: Is the patient currently under a Home Health Plan of Care? Yes _x___ No____ (If Yes, give a copy of this completed from to the Pharmacy Order Entry Technician). Date of Service: 07/02/2022 Visit #: _1 Time: 1148 Note Type: _x__Initial Visit ___Treatment Note ___Progress Report ___Contact Note ___Re-Evaluation ___Discharge Summary Subjective: Pt states he wants to go home and can walk. Spouse and [id number] in present for evaluation state pt was [...] from pt care services received approval from [facility] Shelly for PT eval in ER. Objective [...] E-signed 07/02/2022 11:[address] [facility] 07/02/2022 14:35 Patient Name Age Sex [...] son who lives in [facility]. 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 Allergy List GARLIC OIL, medication Active Home [...] symptoms of Weakness, unsteady gait. Progress Notes [facility] 07/05/2022 15:10 07/05/2022, 15:09 SUBJECTIVE: 81 [...] daily aspirin for history of previous stroke [facility] 07/06/2022 19:28 07/06/2022, 19:27 SUBJECTIVE: 81 [...] daily aspirin for history of previous stroke [facility] 07/03/2022 12:06 07/03/2022, 12:04 SUBJECTIVE: 81 [...] daily aspirin for history of previous stroke [facility] 07/04/2022 15:23 07/04/2022, 15:23 SUBJECTIVE: 81 [...]
[2023-12-06 12:40] LABS: Anion Gap 7.3 mmol/L (3-11); BUN 18 mg/dL (7-18); CO2 26.7 mmol/L (21.0-32.0); CREATININE 1.1 mg/dL (0.70-1.30); Chloride 105 mmol/L (98-107); Estimated GFR 66.61 (mL/min/1.73m2); Glucose 88 mg/dL (74-106); Potassium 4.4 mmol/L (3.5-5.1); Sodium 139 mmol/L (136-145)
== END 2023-12-06 11:17 | disposition home or self-care (01) ==
LOC: LBN 11:16
PROVIDERS: PCP Family Medicine; Visit Provider Family Medicine
DX: E11.29 Type 2 diabetes mellitus with other diabetic kidney complication (principal)
CPT/HCPCS: 80048

== ENCOUNTER 2024-01-12 15:23 | Outpatient (REF) | payer MEDICARE, BC, SELFPAY ==
--- OUTSIDE RECORDS SUMMARY | 2024-01-12 15:26 | XMS_ITS ---
Author Organization Unknown Address [address] [place] [address] [phone] Phone Care Team Providers Care Learning And Development Analyst Name Role Phone ESTEPHANIE Tucker Attending Unavailable JUSDEB JOE Nathaly Primary Unavailable Social History Type Status Start Date End Date Code Code Syst em Smoking History Former smoker 04/05/19545366 0130157 SNOMED CT Sex Male Medications Medication Start [...] Tablet 04/28/2021 07/02/2022 ORAL DAILY 25 MILLIGRAMS 238398 RxNorm TAKE 25 MILLIGRAMS ORAL DAILY Omeprazole 20MG Oral Capsule, Delayed Release 04/28/2021 Unknown ORAL DAILY 20 MILLIGRAMS 947329 RxNorm TAKE 20 MILLIGRAMS ORAL DAILY glipiZIDE 2.5MG Oral Tablet, Extended Release 04/28/2021 07/02/2022 ORAL DAILY 2.5 MILLIGRAMS 430188 RxNorm TAKE 2.5 MILLIGRAMS ORAL DAILY Assessment You had the following problems: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 If you have left the hospital and have any questions, please contact your primary care physician. 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 28937855 SN OMED-CT FUNCTIONAL QUADRIPLEGIA active 738924 566591641 SNOMED-CT TYPE 2 DIABETES active 13844443 SNOM ED-CT WEAKNESS active 14124016 SNOMED-CT UNSTEADY GAIT active 87932911 SNOMED -CT JANAE - ACUTE KIDNEY INJURY 07/02/2022 resolved 98159404 SNOMED-CT DIABETES 04/23/2021 resolved 04055164 SNOMED-CT Allergies and Adverse Reactions Allergy Substance Reaction Severity Start Date Concern Status Code Code Syste m GARLIC OIL Hives (SNOMED-CT: 932862180) Active 7397276 RxNorm Plan of Treatment No Data Found Encounters Encounter Diagnosis Start Date Code Code Sys tem Acute kidney failure, unspecified 04/23/2021 SNOMED-CT Personal Care Team Section Performer Name Performer Role Active Date Inactive Da te
--- OUTSIDE RECORDS SUMMARY | 2024-01-12 15:26 | XMS_ITS ---
Author Organization Unknown Address [address] [place] [address] [phone] Phone Care Team Providers Care Mash Processing Operator Name Role Phone JUSTICE GABRIEL Registered Nurse Unavailable DADA LEROY Registered Nurse Unavailable ROYA RICCI Registered Nurse Unavailable Unavailable Xwatchlist Unavailable ESTEPHANIE Tucker Attending Unavailable LUZ ELENA Reyna ER Unavailable TERRY Andersen Primary Unavailable CHRIS Arias Secondary Unavailable UNLISTED PROVIDER - REQUESTED Xhandoff Un available Results GLUCOSE FINGER/HEEL CAPILLAR Y - Collect Date/Time: 04/27/2021 08:24 [facility] ID: [id number] [address] [place] [address], [phone] LOINC: 01367-3 Test Value Unit Reference Range Code Code System Flag GLUCOSE CAP 108 mg/dL L=70 H=116 GLUCOSE FINGER/HEEL CAPILLAR Y - Collect Date/Time: 04/26/2021 08:15 [facility] ID: [id number] [address] [place] [address], [phone] LOINC: 36869-8 Test Value Unit Reference Range Code Code System Flag GLUCOSE CAP 92 mg/dL L=70 H=116 GLUCOSE FINGER/HEEL CAPILLAR Y - Collect Date/Time: 04/25/2021 16:56 [facility] ID: [id number] [address] [place] [address], [phone] LOINC: 90685-8 Test Value Unit Reference Range Code Code System Flag GLUCOSE CAP 97 mg/dL L=70 H=116 GLUCOSE FINGER/HEEL CAPILLAR Y - Collect Date/Time: 04/25/2021 11:31 [facility] ID: [id number] [address] [place], [place], [phone] LOINC: 52052-5 Test Value Unit Reference Range Code Code System Flag GLUCOSE CAP 151 mg/dL L=70 H=116 H GLUCOSE FINGER/HEEL CAPILLAR Y - Collect Date/Time: 04/24/2021 22:09 [facility] ID: [id number] [address] [place] [address], [phone] LOINC: 91732-0 Test Value Unit Reference Range Code Code System Flag GLUCOSE CAP 88 mg/dL L=70 H=116 GLUCOSE FINGER/HEEL CAPILLAR Y - Collect Date/Time: 04/24/2021 08:34 [facility] ID: [id number] [address] [place] [address], [phone] LOINC: 07298-8 Test Value Unit Reference Range Code Code System Flag GLUCOSE CAP 87 mg/dL L=70 H=116 CBC W/ DIFFERENTIAL* - Colle ct Date/Time: 04/24/2021 06:50 [facility] ID: [id number] [address] [place] [address], 5[address] LOINC: 64556-1 Test Value Unit Reference Range Code Code System Flag WBC 7.17 th/cmm L=5.00 H=10.00 6690-2 LOINC NEUT % 63.5 % L=40.0 H=80.0 LYMPH % 20.6 % L=10.0 H=50.0 MONO % 14.1 % L=2.0 H=12.0 29316-2 LOINC H EOS % 1.0 % L=0.0 H=8.0 BASO % 0.7 % L=0.0 H=3.0 IG % 0.1 % L=0.0 H=1.1 2514-8 LOINC NRBC % 0.0 % L=0.0 H=0.0 12557-1 LOINC NEUT abs count 4.6 th/cmm L=1.6 H=8.4 751-8 LOINC LYMPH abs count 1.5 th/cmm L=1.5 H=4.0 731-0 LOINC MONO abs count 1.0 th/cmm L=0.2 H=1.0 742-7 LOINC EOS abs count 0.1 th/cmm L=0.0 H=0.5 711-2 LOINC BASO abs count 0.1 th/cmm L=0.0 H=0.2 704-7 LOINC IG abs count 0.0 th/cmm L=0.0 H=0.1 81918-4 LOINC NRBC abs count 0.0 mil/cmm L=0.0 H=0.0 55711-9 LOINC RBC 4.20 mil/cmm L=4.30 H=6.20 789-8 [...] PANEL (BMP) - Collect Date/Time: 04/24/2021 06:50 [facility] ID: [id number] [address] [place], [place], [address] LOINC: 10420-4 Test Value Unit Reference Range Code Code System Flag GLUCOSE 97 mg/dL L=70 H=116 2345-7 LOINC BUN 11 mg/dL L=6 H=25 3094-0 LOINC CREATININE 1.08 mg/dL L=0.67 H=1.17 2160-0 LOINC SODIUM SERUM 144 mmol/L L=136 H=145 2951-2 LOINC POTASSIUM SERUM 4.2 mmol/L L=3.4 H=5.2 2823-3 [facility] CHLORIDE SERUM 108 mmol/L L=96 H=110 2075-0 [facility] CARBON DIOXIDE (CO2) 31 mmol/L L=22 H=34 8-9 [facility] ANION GAP 5.3 mmol/L 12992-6 [facility] CALCIUM SERUM 8.5 mg/dL L=8.2 H=10.2 67570-0 INC AGE 80 years eGFR (non-Afr.Amer.) 66 mL/min 30826-9 [facility] eGFR (Afr-Cameroonian) 79 mL/min 52924-4 [facility] COVID FLU RSV GENEXPE RT - Collect Date/Time: 04/23/2021 23:06 [facility] ID: [id number] [address] [place], [place], [phone] LOINC: 52795-2 Test Value Unit Reference Range Code Code System Flag COVID NEGATIVE Normal: Negative 09672-1 LOINC INFLUENZA A DNA NEGATIVE Normal: Negative 50079-9 LOINC INFLUENZA B DNA NEGATIVE Normal: Negative 56519-8 LOINC RSV DNA NEGATIVE Normal: Negative 24124-0 LOINC URINALYSIS WITH MICRO AND RE FLEX CULTUR* - Collect Date/Time: 04/23/2021 22:03 [facility] ID: [id number] [address] [place], [place], [address] LOINC: 70124-3 Test Value Unit Reference Range Code Code System Flag COLLECTION MODE: CLEAN CATCH Color YELLOW yellow 5778-6 LOINC Appearance CLEAR clear 5767-9 LOINC Glucose urine 500 negative mg/dl 86968-1 LOINC A Bilirubin NEGATIVE negative 5770-3 LOINC Ketones NEGATIVE negative mg/dl 2514-8 LOINC Spec gravity <=1.005 1.003 - 1.030 5811-5 LOINC pH urine 6.0 5.0 - 7.0 2756-5 LOINC Protein NEGATIVE negative mg/dl 75810-1 LOINC Urobilinogen 0.2 <or= 1 EU/dl 38983-0 LOINC Nitrite. NEGATIVE negative 5802-4 LOINC Blood NEGATIVE negative 5794-3 [facility] Leukocytes. NEGATIVE negative WBCs. 0-5 0-5 / hpf 58118-8 LOINC RBCs 0-5 0-5 / hpf 70537-3 LOINC Epith cells 0-5 0-5 / hpf 08965-8 LOINC Cell types squamous Crystals none none Bacteria minimal none Mucus none none Casts none none /lpf Other ORDER VENOUS BLOOD GAS* - Co llect Date/Time: 04/23/2021 22:00 [facility] ID: [id number] [address] [place] [address], [id number] LOINC: Test Value Unit Reference Range Code [...] DIFFERENTIAL* - Colle ct Date/Time: 04/23/2021 20:38 [facility] ID: [id number] [address] [place] [address], [address] LOINC: 98424-3 Test Value Unit Reference Range Code Code System Flag WBC 11.28 th/cmm L=5.00 H=10.00 6690-2 LOINC H NEUT % 77.7 % L=40.0 H=80.0 LYMPH % 10.8 % L=10.0 H=50.0 MONO % 10.7 % L=2.0 H=12.0 99011-5 LOINC EOS % 0.1 % L=0.0 H=8.0 BASO % 0.4 % L=0.0 H=3.0 IG % 0.3 % L=0.0 H=1.1 4874-8 LOINC NRBC % 0.0 % L=0.0 H=0.0 50601-3 LOINC NEUT abs count 8.8 th/cmm L=1.6 H=8.4 751-8 LOINC H LYMPH abs count 1.2 th/cmm L=1.5 H=4.0 731-0 LOINC L MONO abs count 1.2 th/cmm L=0.2 H=1.0 742-7 LOINC H EOS abs count 0.0 th/cmm L=0.0 H=0.5 711-2 LOINC BASO abs count 0.1 th/cmm L=0.0 H=0.2 704-7 LOINC IG abs count 0.0 th/cmm L=0.0 H=0.1 33594-1 LOINC NRBC abs count 0.0 mil/cmm L=0.0 H=0.0 04263-1 LOINC RBC 4.33 mil/cmm L=4.30 H=6.20 789-8 [...] TROPONIN-I* - Collect Date/T rochelle: 04/23/2021 19:20 [facility] ID: [id number] [address] [place], [place], [address] LOINC: 37379-2 Test Value Unit Reference Range Code Code System Flag TROPONIN-I < 0.017 ng/mL L=0.000 H=0.060 89046-2 LOINC Specimen seq. Random TROPONIN HIGH SENSITIVITY* - Collect Date/Time: 04/23/2021 19:20 [facility] ID: [id number] [address] [place], [place], [address] LOINC: 17667-7 Test Value Unit Reference Range Code Code System Flag TROPONIN HS 11.6 pg/mL L=0.0 H=60.4 Specimen seq. ADM. KETONES QUAL - Collect Date/ Time: 04/23/2021 19:20 [facility] ID: [id number] [address] [place] [address], [address] LOINC: 5567-3 Test Value Unit Reference Range Code Code System Flag ACETONE NEGATIVE 5567-3 LOINC COMPREHENSIVE METABOLIC PANE L (CMP) - Collect Date/Time: 04/23/2021 19:20 [facility] ID: [id number] [address] [place] [address], [address] LOINC: 02903-3 Test Value Unit Reference Range Code Code [...] H=34 2028-9 LOINC ANION GAP 12.4 mmol/L 19375-2 LOINC CALCIUM SERUM 9.0 mg/dL L=8.2 H=10.2 23898-6 LOINC BILIRUBIN TOTAL 0.7 mg/dL L=0.0 H=1.3 1975-2 LOINC ALK. PHOS. 130 U/L L=46 H=116 6768-6 LOINC H SGOT (AST) 22 U/L L=15 H=37 1920-8 LOINC SGPT (ALT) 33 U/L L=12 H=78 1742-6 LOINC TOTAL PROTEIN 7.6 gm/dL L=6.0 H=8.0 2885-2 LOINC ALBUMIN 3.5 gm/dL L=3.4 H=5.0 1751-7 LOINC AGE 80 years eGFR (non-Afr.Amer.) 52 mL/min 23525-0 LOINC eGFR (Afr-Cameroonian) 62 mL/min 01631-3 LOINC THYROID TESTING CASCADE* - C ollect Date/Time: 04/23/2021 19:20 [facility] ID: [id number] [address] [place], [place], [address] LOINC: 3016-3 Test Value Unit Reference Range Code Code System Flag TSH. 0.515 uIU/mL L=0.360 H=3.740 3014-[address] HEAD BRAIN WO DYE - Compl [...] by: DELMAR 04/24/2112:12 D April 8:45:18 AM 023571 [id number] Electronically Reviewed and Signed By: PORTILLO SPEAR MD 04/24/21 12:25 Copy for: 185 HEALTH INFORMATION MGMT Social History Type Status Start Date End Date Code Code Syst em Smoking History Former smoker 04/05/19541629 5312297 SNOMED CT Sex Male Vital Signs Vital Sign Value Unit [place] Value [place] Unit Date/Time Recent/Initial? Code Code System Body Mass Index 25.87 kg/m2 04/25/2021 12:44 Most Recent 60271 -5 LOINC Body Mass Index 26.39 kg/m2 04/23/2021 19:43 Initial 51081 -5 LOINC Systolic Blood Pressure 158 mm[Hg] [...] Saturation 95 % 2021 07:32 Most Recent 57385 -5 LOINC O2 Saturation 96 % 2021 19:43 Initial 78592 -5 LOINC Fraction of Inspired Oxygen 21 [...] kg 146.03 lbs 04/25/2021 12:44 Most Recent 68905 -7 [facility] Weight 67.59 kg 149.00 lbs 04/23/2021 19:43 Initial 44046 -7 [facility] Medications Medication Start Date End Date [...] Tablet 04/28/2021 07/02/2022 ORAL DAILY 25 MILLIGRAMS [id number] RxNorm TAKE 25 MILLIGRAMS ORAL DAILY Omeprazole 20MG Oral Capsule, Delayed Release 04/28/2021 Unknown ORAL DAILY 20 MILLIGRAMS 345766 RxNorm TAKE 20 MILLIGRAMS ORAL DAILY glipiZIDE 2.5MG Oral Tablet, Extended Release 04/28/2021 07/02/2022 ORAL DAILY 2.5 MILLIGRAMS [id number] RxNorm TAKE 2.5 MILLIGRAMS ORAL DAILY Assessment You had the following problems: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 If you have left the hospital and have any questions, please contact your primary care physician. 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 85498774 SN OMED-CT FUNCTIONAL QUADRIPLEGIA active 076344 [id number] SNOMED-CT TYPE 2 DIABETES active 43893404 SNOM ED-CT WEAKNESS active 01641647 SNOMED-CT UNSTEADY GAIT active 31721496 SNOMED -CT JANAE - ACUTE KIDNEY INJURY 07/02/2022 resolved 31912819 SNOMED-CT DIABETES 04/23/2021 resolved 79670494 SNOMED-CT Allergies and Adverse Reactions Allergy Substance Reaction Severity Start Date Concern Status Code Code Syste m GARLIC OIL Hives (SNOMED-CT: 103519705) Active 3491830 RxNorm Plan of Treatment No Data Found Encounters Encounter Diagnosis Start Date Code Code Sys tem Acute kidney failure, unspecified 04/25/2021 SNOMED-CT Personal Care Team Section Performer Name Performer Role Active Date Inactive Da te History and Physical Notes Progress Notes
--- OUTSIDE RECORDS SUMMARY | 2024-01-12 15:27 | XMS_ITS ---
Author Organization Unknown Address [address] [place] [address] [phone] Phone Care Team Providers Care Mechanical Detailer Name Role Phone MAURICIO Quintanilla Attending Unavailable TERRY JOE Nathaly Primary Unavailable Results URINALYSIS WITH REFLEX CULT IF POSITIVE* - Collect Date/Time: 05/20/2022 12:05 [facility] ID: [id number] [address] [place], [place], [address] LOINC: 60859-0 Test Value Unit Reference Range Code Code System Flag COLLECTION MODE: NOT STATED 94708-3 LOINC Color YELLOW yellow 5778-6 LOINC Appearance CLEAR clear 5767-9 LOINC Glucose urine >=1000 negative mg/dl 09741-4 LOINC A Bilirubin NEGATIVE negative 5770-3 LOINC Ketones TRACE negative mg/dl 2514-8 LOINC A Spec gravity 1.015 1.003 - 1.030 5811-5 LOINC pH urine 7.5 5.0 - 7.0 2756-5 LOINC A Protein NEGATIVE negative mg/dl 28818-8 LOINC Urobilinogen 0.2 <or= 1 EU/dl 99026-2 LOINC Nitrite. NEGATIVE negative 5802-4 LOINC Blood NEGATIVE negative 5794-3 LOINC Leukocytes. NEGATIVE negative MICROSCOPIC NOT INDICAT Social History Type Status Start Date End Date Code Code Syst em Smoking History Former smoker 04/05/19543160 7702583 SNOMED CT Sex Male Medications Medication Start [...] Tablet 04/28/2021 07/02/2022 ORAL DAILY 25 MILLIGRAMS 361693 RxNorm TAKE 25 MILLIGRAMS ORAL DAILY Omeprazole 20MG Oral Capsule, Delayed Release 04/28/2021 Unknown ORAL DAILY 20 MILLIGRAMS 548017 RxNorm TAKE 20 MILLIGRAMS ORAL DAILY glipiZIDE 2.5MG Oral Tablet, Extended Release 04/28/2021 07/02/2022 ORAL DAILY 2.5 MILLIGRAMS 945969 RxNorm TAKE 2.5 MILLIGRAMS ORAL DAILY Assessment [...] Code Code System 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 89917750 SN OMED-CT FUNCTIONAL QUADRIPLEGIA active 491081 571597916 SNOMED-CT TYPE 2 DIABETES active 83521730 SNOM ED-CT WEAKNESS active 69264650 SNOMED-CT UNSTEADY GAIT active 56989437 SNOMED -CT JANAE - ACUTE KIDNEY INJURY 07/02/2022 resolved 68221036 SNOMED-CT DIABETES 04/23/2021 resolved 75767531 SNOMED-CT Allergies and Adverse Reactions Allergy Substance Reaction Severity Start Date Concern Status Code Code Syste m GARLIC OIL Hives (SNOMED-CT: 486393110) Active 6110864 RxNorm Plan of Treatment No Data Found Encounters Encounter Diagnosis Start Date Code Code Sys tem Dysuria 05/20/2022 SNOMED-CT Personal Care Team Section Performer Name Performer Role Active Date Inactive Da te
--- OUTSIDE RECORDS SUMMARY | 2024-01-12 15:27 | XMS_ITS ---
Author Organization Unknown Address [address] [place] [address] [phone] Phone Care Team Providers Care Cloth Painter Name Role Phone ÁNGEL HERBERT Registered Nurse Unavailable RIANNA PEREZ Registered Nurse Unavailable MARIAA Pal Attending Unavailable NANDA Haddad [facility] Unavailable TERRY MATTHEWSA Nathaly Primary Unavailable UNLISTED PROVIDER - REQUESTED Xhandoff Un available Results URINALYSIS WITH MICRO AND RE FLEX CULTUR* - Collect Date/Time: 05/18/2022 06:53 [facility] ID: [id number] [address] [place], [place], [address] LOINC: 49077-6 Test Value Unit Reference Range Code Code System Flag COLLECTION MODE: CLEAN CATCH 70405-6 LOINC Color YELLOW yellow 5778-6 LOINC Appearance CLEAR clear 5767-9 LOINC Glucose urine NEGATIVE negative mg/dl 80350-9 LOINC Bilirubin NEGATIVE negative 5770-3 LOINC Ketones 15 negative mg/dl 2514-8 LOINC A Spec gravity <=1.005 1.003 - 1.030 5811-5 LOINC pH urine 6.5 5.0 - 7.0 2756-5 LOINC Protein NEGATIVE negative mg/dl 28822-4 LOINC Urobilinogen 0.2 <or= 1 EU/dl 36236-9 LOINC Nitrite. NEGATIVE negative 5802-4 LOINC Blood NEGATIVE negative 5794-3 LOINC Leukocytes. NEGATIVE negative WBCs. 0-5 0-5 / hpf 69079-1 LOINC RBCs 0-5 0-5 / hpf 34729-0 LOINC Epith cells 0-5 0-5 / hpf 13678-2 LOINC Cell types squamous Crystals none none Bacteria none none Mucus present none 8247-9 LOINC Casts 0-5 none /lpf 55782-8 LOINC Cast types hyaline Other GLUCOSE FINGER/HEEL CAPILLAR Y - Collect Date/Time: 05/18/2022 04:29 [facility] ID: [id number] [address] [place], [place], [phone] LOINC: 73749-8 Test Value Unit Reference Range Code Code System Flag GLUCOSE CAP 134 mg/dL L=70 H=116 H [facility] COVID FLU RSV GENEXPE RT - Collect Date/Time: 05/18/2022 04:25 [facility] ID: [id number] [address] [place] [address], [id number] LOINC: 46514-9 Test Value Unit Reference Range Code Code System Flag COVID NEGATIVE Normal: Negative 29836-4 LOINC INFLUENZA A DNA NEGATIVE Normal: Negative 49754-2 LOINC INFLUENZA B DNA NEGATIVE Normal: Negative 10552-2 LOINC RSV DNA NEGATIVE Normal: Negative 87993-7 LOINC COMPREHENSIVE METABOLIC PANE L (CMP) - Collect Date/Time: 05/18/2022 04:15 [facility] ID: [id number] [address] [place] [address], [address] LOINC: 58539-3 Test Value Unit Reference Range Code Code [...] H=34 2028-9 LOINC ANION GAP 4.6 mmol/L 64963-7 LOINC CALCIUM SERUM 8.6 mg/dL L=8.2 H=10.2 22060-9 LOINC BILIRUBIN TOTAL 0.7 mg/dL L=0.0 H=1.3 1975-2 LOINC ALK. PHOS. 130 U/L L=46 H=116 6768-6 LOINC H SGOT (AST) 31 U/L L=15 H=37 1920-8 LOINC SGPT (ALT) 35 U/L L=12 H=78 1742-6 LOINC TOTAL PROTEIN 7.7 gm/dL L=6.0 H=8.0 2885-2 LOINC ALBUMIN 3.0 gm/dL L=3.4 H=5.0 1751-7 LOINC L AGE 81 years eGFR (non-Afr.Amer.) 55 mL/min 84718-4 LOINC eGFR (Afr-[place]raes) 66 mL/min 35682-6 LOINC C REACTIVE PROTEIN HIGH SENS ITIVITY* - Collect Date/Time: 05/18/2022 04:15 [facility] ID: [id number] [address] [place] [address], [address] LOINC: 32400-1 Test Value Unit Reference Range Code Code System Flag CRP-HIGH SENS. 147.97 mg/L L=0.00 H=3.00 13056-8 LOINC H CRP-HIGH SENS 14.80 mg/dL L=0.00 H=0.30 51329-4 LOINC H SED RATE* - Collect Date/[place] e: 05/18/2022 04:15 [facility] ID: [id number] [address] [place] [address], [address] LOINC: 4537-7 Test Value Unit Reference Range Code Code System Flag SED. RATE 72 mm/hr L=0 H=20 4537-7 LOINC H CBC W/ DIFFERENTIAL* - Colle ct Date/Time: 05/18/2022 04:15 [facility] ID: [id number] [address] [place] [address], [address] LOINC: 00718-7 Test Value Unit Reference Range Code Code System Flag WBC 8.07 th/cmm L=5.00 H=10.00 90-2 LOINC NEUT % 64.6 % L=40.0 H=80.0 LYMPH % 18.7 % L=10.0 H=50.0 MONO % 13.8 % L=2.0 H=12.0 81751-3 LOINC H EOS % 1.9 % L=0.0 H=8.0 BASO % 0.6 % L=0.0 H=3.0 IG % 0.4 % L=0.0 H=1.1 2514-8 LOINC NRBC % 0.0 % L=0.0 H=0.0 41524-1 LOINC NEUT abs count 5.2 th/cmm L=1.6 H=8.4 751-8 LOINC LYMPH abs count 1.5 th/cmm L=1.5 H=4.0 731-0 LOINC MONO abs count 1.1 th/cmm L=0.2 H=1.0 742-7 LOINC H EOS abs count 0.2 th/cmm L=0.0 H=0.5 711-2 LOINC BASO abs count 0.1 th/cmm L=0.0 H=0.2 704-7 LOINC IG abs count 0.0 th/cmm L=0.0 H=0.1 14364-6 LOINC NRBC abs count 0.0 mil/cmm L=0.0 H=0.0 01396-0 LOINC RBC 4.25 mil/cmm L=4.30 H=6.20 789-8 [...] HIGH SENSITIVITY* - Collect Date/Time: 05/18/2022 04:15 [facility] ID: [id number] [address] [place], [place], [address] LOINC: 23085-7 Test Value Unit Reference Range Code Code System Flag TROPONIN HS 8.7 pg/mL L=0.0 H=60.4 Specimen seq. ADM. XR CHEST PORTABLE OR 1V - Co mpleted: 05/18/2022 04:37 LOINC: [facility] RADIOLOGY [place], [place] [address] PACS TEACHER VOCATIONAL TRAINING REPORT Patient Name: NATY BONILLA MRN: Sex: : Age: [id number] M 1940 81 Account: Accession: Admit: StayType: [id number] 05/18/2022 E/R Ordered: Order ID: Submitted: Ordering Provider: 05/18/2022 04:27 [id number] HETAL TOMLINSON Completed: Technologist: Resulted: 05/18/2022 04:37 [...] Code Syst em Smoking History Former smoker 04/05/19545970 6565234 SNOMED CT Sex Male Vital Signs Vital Sign Value Unit Tad Value Tad Unit Date/Time Recent/Initial? Code Code System Body Mass Index 24.80 kg/m2 05/18/2022 04:28 Initial 34298 -5 LOINC Systolic Blood Pressure 150 mm[Hg] [...] Saturation 91 % 2022 07:00 Most Recent 94598 -5 LOINC O2 Saturation 95 % 2022 04:28 Initial 23781 -5 LOINC Inhaled Oxygen Flow Rate 1.00 [...] 63.50 kg 140.00 lbs 05/18/2022 04:28 Initial 91564 -7 INC Medications Medication Start Date End [...] Tablet 04/28/2021 07/02/2022 ORAL DAILY 25 MILLIGRAMS 055838 RxNorm TAKE 25 MILLIGRAMS ORAL DAILY Omeprazole 20MG Oral Capsule, Delayed Release 04/28/2021 Unknown ORAL DAILY 20 MILLIGRAMS 992011 RxNorm TAKE 20 MILLIGRAMS ORAL DAILY glipiZIDE 2.5MG Oral Tablet, Extended Release 04/28/2021 07/02/2022 ORAL DAILY 2.5 MILLIGRAMS 593502 RxNorm TAKE 2.5 MILLIGRAMS ORAL DAILY Assessment You had the following problems: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 Discharge Instructions Should you have any questions prior to discharge, please contact a member of your healthcare team. If you have left the hospital and have any questions, please contact your primary care physician. 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 55976217 SN OMED-CT FUNCTIONAL QUADRIPLEGIA active 198564 260122735 SNOMED-CT TYPE 2 DIABETES active 79963919 SNOM ED-CT WEAKNESS active 35571198 SNOMED-CT UNSTEADY GAIT active 02934989 SNOMED -CT JANAE - ACUTE KIDNEY INJURY 07/02/2022 resolved 03777429 SNOMED-CT DIABETES 04/23/2021 resolved 45540259 SNOMED-CT Allergies and Adverse Reactions Allergy Substance Reaction Severity Start Date Concern Status Code Code Syste m GARLIC OIL Hives (SNOMED-CT: 804488284) Active 6915347 RxNorm Plan of Treatment No Data Found Encounters Encounter Diagnosis Start Date Code Code Sys tem Dehydration 05/18/2022 SNOMED-CT Personal Care Team Section Performer Name Performer Role Active Date Inactive Da te
--- OUTSIDE RECORDS SUMMARY | 2024-01-12 15:28 | XMS_ITS ---
Author Organization Unknown Address [address] [place] [address] [phone] Phone Care Team Providers Care Family Dinner Service Specialist Name Role Phone VANDANA Quintanilla Attending Unavailable BHARATHIDEB MATTHEWSA Nathaly Primary Unavailable Social History Type Status Start Date End Date Code Code Syst em Smoking History Former smoker 04/05/19548026 1862369 SNOMED CT Sex Male Medications Medication Start [...] Tablet 04/28/2021 07/02/2022 ORAL DAILY 25 MILLIGRAMS 287981 RxNorm TAKE 25 MILLIGRAMS ORAL DAILY Omeprazole 20MG Oral Capsule, Delayed Release 04/28/2021 Unknown ORAL DAILY 20 MILLIGRAMS 067521 RxNorm TAKE 20 MILLIGRAMS ORAL DAILY glipiZIDE 2.5MG Oral Tablet, Extended Release 04/28/2021 07/02/2022 ORAL DAILY 2.5 MILLIGRAMS 253585 RxNorm TAKE 2.5 MILLIGRAMS ORAL DAILY Assessment You had the following problems: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 If you have left the hospital and have any questions, please contact your primary care physician. 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 77938814 SN OMED-CT FUNCTIONAL QUADRIPLEGIA active 314769 601302039 SNOMED-CT TYPE 2 DIABETES active 90895411 SNOM ED-CT WEAKNESS active 91388288 SNOMED-CT UNSTEADY GAIT active 48929126 SNOMED -CT JANAE - ACUTE KIDNEY INJURY 07/02/2022 resolved 92834584 SNOMED-CT DIABETES 04/23/2021 resolved 56577275 SNOMED-CT Allergies and Adverse Reactions Allergy Substance Reaction Severity Start Date Concern Status Code Code Syste m GARLIC OIL Hives (SNOMED-CT: 471857482) Active 9520594 RxNorm Plan of Treatment No Data Found Encounters Encounter Diagnosis Start Date Code Code Sys tem Weakness 07/02/2022 SNOMED-CT Personal Care Team Section Performer Name Performer Role Active Date Inactive Da te
--- OUTSIDE RECORDS SUMMARY | 2024-01-12 15:28 | XMS_ITS ---
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 42236194 SN OMED-CT FUNCTIONAL QUADRIPLEGIA active 542401 451440596 SNOMED-CT TYPE 2 DIABETES active 08583018 SNOM ED-CT WEAKNESS active 31803441 SNOMED-CT UNSTEADY GAIT active 32456549 SNOMED -CT JANAE - ACUTE KIDNEY INJURY 07/02/2022 resolved 96198557 SNOMED-CT DIABETES 04/23/2021 resolved 28422424 SNOMED-CT Allergies and Adverse Reactions Allergy Substance Reaction Severity Start Date Concern Status Code Code Syste m GARLIC OIL Hives (SNOMED-CT: 802700672) Active 8546512 RxNorm Plan of Treatment No Data Found Encounters Encounter Diagnosis Start Date Code Code Sys tem Adult failure to thrive 07/03/2022 SNOM ED-CT Personal Care Team Section Performer Name Performer Role Active Date Inactive Da te
--- OUTSIDE RECORDS SUMMARY | 2024-01-12 15:28 | XMS_ITS ---
Author Organization Unknown Address [address] [place] [address] [phone] Phone Care Team Providers Care Asbestos Wire Finisher Name Role Phone OSMIN SKINNER Registered Nurse Unavailable NANI TEMPLE Registered Nurse Unavailable RIANNA PERZE Registered Nurse Unavailable Unavailable Xwatchlist Unavailable ESTEPHANIE Tucker Attending Unavailable HEMMER SOTERO M ER Unavailable FELSTED JOE A Primary Unavailable ELSY ANNEMARIE Landers Secondary Unavailable UNLISTED PROVIDER - REQUESTED Xhandoff Un available ESTEPHANIE Tucker Transferring Provider [phone] Results GLUCOSE FINGER/HEEL CAPILLAR Y - Collect Date/Time: 07/06/2022 07:36 [facility] ID: [id number] [address] [place] [address], [phone] LOINC: 24769-2 Test Value Unit Reference Range Code Code System Flag GLUCOSE CAP 156 mg/dL L=70 H=116 H GLUCOSE FINGER/HEEL CAPILLAR Y - Collect Date/Time: 07/05/2022 07:35 [facility] ID: [id number] [address] [place] [address], [phone] LOINC: 11228-3 Test Value Unit Reference Range Code Code System Flag GLUCOSE CAP 157 mg/dL L=70 H=116 H GLUCOSE FINGER/HEEL CAPILLAR Y - Collect Date/Time: 07/04/2022 08:04 [facility] ID: [id number] [address] [place] [address], [phone] LOINC: 97624-9 Test Value Unit Reference Range Code Code System Flag GLUCOSE CAP 161 mg/dL L=70 H=116 H GLUCOSE FINGER/HEEL CAPILLAR Y - Collect Date/Time: 07/03/2022 20:19 [facility] ID: [id number] [address] [place] [address], [phone] LOINC: 61220-4 Test Value Unit Reference Range Code Code System Flag GLUCOSE CAP 230 mg/dL L=70 H=116 H GLUCOSE FINGER/HEEL CAPILLAR Y - Collect Date/Time: 07/03/2022 06:30 [facility] ID: [id number] [address] [place] [address], [phone] LOINC: 21215-5 Test Value Unit Reference Range Code Code System Flag GLUCOSE CAP 137 mg/dL L=70 H=116 H URINALYSIS WITH REFLEX CULT IF POSITIVE* - Collect Date/Time: 07/02/2022 08:35 [facility] ID: [id number] [address] [place] [address], [address] LOINC: 94892-7 Test Value Unit Reference Range Code Code System Flag COLLECTION MODE: CLEAN CATCH 13330-1 LOINC Color YELLOW yellow 5778-6 LOINC Appearance CLEAR clear 5767-9 LOINC Glucose urine 250 negative mg/dl 00866-6 LOINC A Bilirubin NEGATIVE negative 5770-3 LOINC Ketones NEGATIVE negative mg/dl 2514-8 LOINC Spec gravity 1.010 1.003 - 1.030 5811-5 LOINC pH urine 7.5 5.0 - 7.0 2756-5 LOINC A Protein NEGATIVE negative mg/dl 61579-3 LOINC Urobilinogen 0.2 <or= 1 EU/dl 38562-0 LOINC Nitrite. NEGATIVE negative 5802-4 LOINC Blood NEGATIVE negative 5794-3 LOINC Leukocytes. NEGATIVE negative MICROSCOPIC NOT INDICAT GLUCOSE FINGER/HEEL CAPILLAR Y - Collect Date/Time: 07/02/2022 07:40 [facility] ID: [id number] [address] [place] [address], [phone] LOINC: 13217-7 Test Value Unit Reference Range Code Code System Flag GLUCOSE CAP 172 mg/dL L=70 H=116 H [facility] COVID FLU RSV GENEXPE RT - Collect Date/Time: 07/02/2022 06:47 [facility] ID: [id number] [address] [place] [address], [id number] LOINC: 46925-1 Test Value Unit Reference Range Code Code System Flag COVID NEGATIVE Normal: Negative 62390-1 LOINC INFLUENZA A DNA NEGATIVE Normal: Negative 11889-4 LOINC INFLUENZA B DNA NEGATIVE Normal: Negative 50771-6 LOINC RSV DNA NEGATIVE Normal: Negative 93412-3 LOINC TROPONIN HIGH SENSITIVITY* - Collect Date/Time: 07/02/2022 06:47 [facility] ID: [id number] [address] [place] [address], [address] LOINC: 89543-2 Test Value Unit Reference Range Code Code System Flag TROPONIN HS 8.2 pg/mL L=0.0 H=60.4 Specimen seq. RANDOM COMPREHENSIVE METABOLIC PANE L (CMP) - Collect Date/Time: 07/02/2022 06:47 [facility] ID: [id number] [address] [place] [address], [address] LOINC: 79545-2 Test Value Unit Reference Range Code Code [...] H=34 2028-9 LOINC ANION GAP 8.1 mmol/L 27463-6 LOINC CALCIUM SERUM 9.1 mg/dL L=8.2 H=10.2 32352-9 LOINC BILIRUBIN TOTAL 0.8 mg/dL L=0.0 H=1.3 1975-2 LOINC ALK. PHOS. 215 U/L L=46 H=116 6768-6 LOINC H SGOT (AST) 28 U/L L=15 H=37 1920-8 LOINC SGPT (ALT) 83 U/L L=12 H=78 1742-6 LOINC H TOTAL PROTEIN 8.1 gm/dL L=6.0 H=8.0 2885-2 LOINC H ALBUMIN 3.1 gm/dL L=3.4 H=5.0 1751-7 LOINC L AGE 81 years eGFR (non-Afr.Amer.) 69 mL/min 58029-8 LOINC eGFR (Afr-Northern Irish) 84 mL/min 78095-8 LOINC CBC W/ DIFFERENTIAL* - Colle ct Date/Time: 07/02/2022 06:47 [facility] ID: [id number] [address] [place], [place], [address] LOINC: 43546-5 Test Value Unit Reference Range Code Code System Flag WBC 7.73 th/cmm L=5.00 H=10.00 6690-2 LOINC NEUT % 70.6 % L=40.0 H=80.0 LYMPH % 16.7 % L=10.0 H=50.0 MONO % 10.6 % L=2.0 H=12.0 83371-5 LOINC EOS % 1.6 % L=0.0 H=8.0 BASO % 0.4 % L=0.0 H=3.0 IG % 0.1 % L=0.0 H=1.1 2514-8 LOINC NRBC % 0.0 % L=0.0 H=0.0 63068-2 LOINC NEUT abs count 5.5 th/cmm L=1.6 H=8.4 751-8 LOINC LYMPH abs count 1.3 th/cmm L=1.5 H=4.0 731-0 LOINC L MONO abs count 0.8 th/cmm L=0.2 H=1.0 742-7 LOINC EOS abs count 0.1 th/cmm L=0.0 H=0.5 711-2 LOINC BASO abs count 0.0 th/cmm L=0.0 H=0.2 704-7 LOINC IG abs count 0.0 th/cmm L=0.0 H=0.1 14961-6 LOINC NRBC abs count 0.0 mil/cmm L=0.0 H=0.0 56484-5 LOINC RBC 4.50 mil/cmm L=4.30 H=6.20 789-8 [...] 1V - Co mpleted: 07/02/2022 07:27 LOINC: [facility] RADIOLOGY [place], [place] [address] PACS GYPSUM ROOFER REPORT Patient Name: NATY BONILLA MRN: Sex: : Age: [id number] M 1940 81 Account: Accession: Admit: StayType: [id number] 07/02/2022 E/R Ordered: Order ID: Submitted: Ordering Provider: 07/02/2022 06:59 [id number] ANNEMARIE SPENCE Completed: Technologist: Resulted: 07/02/2022 07:27 [...] Code Syst em Smoking History Former smoker 04/05/19543554 2272369 SNOMED CT Sex Male Vital Signs Vital Sign Value Unit [place] Value [place] Unit Date/Time Recent/Initial? 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 Discharge Instructions Should you have any questions prior to discharge, please contact a member of your healthcare team. If you have left the hospital and have any questions, please contact your primary care physician. 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 07/02/2022 11:59 All Demographics Patient Name Age Sex Visit Number Admission Date/Time Attending Physician Date of Service Room and Bed Emergency Contact NATY BONILLA SR 1940 81 years Male [id number] 07/02/2022 06:36 ANNEMARIE CHIN 07/02/2022 3A TIM BONILLA - [id number] REHABILITATION SERVICES _x__Physical Therapy ___Occupational Therapy ___Athletic Training ___Speech/Language Pathology SERVICE TYPE: ____Inpatient ____Outpatient _x___Emergency Department Other: For All Outpatient , ED, Observation and Outpatient Surgery patients: Is the patient currently under a Home Health Plan of Care? Yes _x___ No____ (If Yes, give a copy of this completed from to the [employer] Agent). Date of Service: 07/02/2022 Visit #: _1 Time: 1148 Note Type: _x__Initial Visit ___Treatment Note ___Progress Report ___Contact Note ___Re-Evaluation ___Discharge Summary Subjective: Pt states he wants to go home and can walk. Spouse and [id number] in present for evaluation state pt was [...] from pt care services received approval from [facility] for PT eval in ER. Objective [...] E-signed 07/02/2022 11:47 [address] [facility] 07/02/2022 14:35 Patient Name Age Sex [...] have 1 grown son who lives in [facility]. 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 Allergy List GARLIC OIL, medication Active Home [...] droop. Gait has not been tested by [facility]: The patient is oriented x4. Mood [...] symptoms of Weakness, unsteady gait. Progress Notes [facility] 07/05/2022 15:10 07/05/2022, 15:09 SUBJECTIVE: 81 [...] daily aspirin for history of previous stroke [facility] 07/06/2022 19:28 07/06/2022, 19:27 SUBJECTIVE: 81 [...] daily aspirin for history of previous stroke [facility] 07/03/2022 12:06 07/03/2022, 12:04 SUBJECTIVE: 81 [...] daily aspirin for history of previous stroke [facility] 07/04/2022 15:23 07/04/2022, 15:23 SUBJECTIVE: 81 [...]
[2024-01-12 16:03] LABS: Hemoglobin A1C 6.4 % (<5.7)
== END 2024-01-12 15:24 | disposition home or self-care (01) ==
LOC: NCHCN 15:23
PROVIDERS: PCP Family Medicine; Visit Provider Family Medicine
DX: E11.29 Type 2 diabetes mellitus with other diabetic kidney complication (principal)
CPT/HCPCS: 80048; 83036

== ENCOUNTER 2024-04-24 15:29 | Outpatient (REF) | payer MEDICARE, BC, SELFPAY ==
[2024-04-24 18:29] LABS: Anion Gap 6.9 mmol/L (3-11); BUN 22 mg/dL (7-18); CO2 27.1 mmol/L (21.0-32.0); CREATININE 1.1 mg/dL (0.70-1.30); Calcium 9.3 mg/dL (8.5-10.1); Chloride 106 mmol/L (98-107); Estimated GFR 66.19 (mL/min/1.73m2); Glucose 98 mg/dL (74-106); Potassium 4.9 mmol/L (3.5-5.1); Sodium 140 mmol/L (136-145)
== END 2024-04-24 15:30 | disposition home or self-care (01) ==
LOC: NCHCN 15:29
PROVIDERS: PCP Family Medicine; Visit Provider Family Medicine
DX: E11.29 Type 2 diabetes mellitus with other diabetic kidney complication (principal); R62.7 Adult failure to thrive
CPT/HCPCS: 80048

== ENCOUNTER 2024-09-18 18:34 | Outpatient (REF) | payer MEDICARE, BC, SELFPAY ==
[2024-09-18 16:41] LABS: Anion Gap 9.4 mmol/L (3-11); BUN 35 mg/dL (7-18); CO2 26.6 mmol/L (21.0-32.0); CREATININE 1.1 mg/dL (0.70-1.30); Calcium 8.7 mg/dL (8.5-10.1); Chloride 104 mmol/L (98-107); Estimated GFR 66.19 (mL/min/1.73m2); Glucose 113 mg/dL (74-106); Potassium 4.7 mmol/L (3.5-5.1); Sodium 140 mmol/L (136-145)
[2024-09-18 17:18] LABS: Hemoglobin A1C 6.5 % (<5.7)
== END 2024-09-18 18:35 | disposition home or self-care (01) ==
LOC: NCHCN 18:34
PROVIDERS: PCP Family Medicine; Visit Provider Family Medicine
DX: E11.29 Type 2 diabetes mellitus with other diabetic kidney complication (principal)
CPT/HCPCS: 80048; 83036

== ENCOUNTER 2024-10-16 16:09 | Outpatient (REF) | payer MEDICARE, BC, SELFPAY ==
[2024-10-16 19:58] LABS: Anion Gap 9.2 mmol/L (3-11); BUN 26 mg/dL (7-18); CO2 26.8 mmol/L (21.0-32.0); Calcium 9.0 mg/dL (8.5-10.1); Chloride 103 mmol/L (98-107); Estimated GFR 74.21 (mL/min/1.73m2); Glucose 80 mg/dL (74-106); Potassium 4.7 mmol/L (3.5-5.1); Sodium 139 mmol/L (136-145)
[2024-10-16 20:01] LABS: Hemoglobin A1C 6.5 % (<5.7)
== END 2024-10-16 16:10 | disposition home or self-care (01) ==
LOC: LBN 16:09
PROVIDERS: PCP Family Medicine; Visit Provider Family Medicine
DX: E11.29 Type 2 diabetes mellitus with other diabetic kidney complication (principal); I10 Essential (primary) hypertension; R62.7 Adult failure to thrive
CPT/HCPCS: 80048; 83036